=== PATIENT | male | born 1955 | race Caucasian/White ===

== ENCOUNTER 2022-11-12 11:12 | Outpatient (OUT) | payer MEDICARE, OTHER, SELFPAY ==
--- NOTE | 2022-11-12 11:15 | US_ITS ---
The [address] [address] Patient Name: RAMA CHIN MRN: [id number] date: 1955 Sex: M Assigned Patient Location: US Current Patient Location: US Accession/Order Number: [id number] Exam Date: 11/12/2022 11:15 Report Date: 11/12/2022 12:48 At the request of: ANU CADET Procedure: US renal bladder EXAM: US renal bladder HISTORY: Right flank discomfort R10.9 COMPARISON: None. TECHNIQUE: Real-time ultrasound imaging of the kidneys and bladder. Findings: The right and left kidneys measure 10.8 and 13.1 cm. There is good corticomedullary differentiation bilaterally. There is a right renal cortical calcification measuring 0.5 cm. No renal stones or collecting system dilatation. Left renal cyst measuring 2.3 x 2.2 x 1.9 cm. No perinephric fluid collection. The bladder is fluid-filled and unremarkable. The bilateral ureteral jets are identified. The right ureteral jet is duplicated. The prostate measures 4.0 x 4.0 x 4.1 cm. IMPRESSION: 1. Left renal cyst. Electronically authenticated by: LALY PALOMO Date: 11/12/2022 12:48
== END 2022-11-12 11:13 | disposition home or self-care (01) ==
LOC: US 11:12
PROVIDERS: PCP Family Medicine; Visit Provider Family Medicine
DX: R10.9 Unspecified abdominal pain (principal); N28.1 Cyst of kidney, acquired
CPT/HCPCS: 76770

== ENCOUNTER 2022-11-19 09:06 | Outpatient (OUT) | payer MEDICARE, OTHER, SELFPAY ==
--- NOTE | 2022-11-19 09:17 | MR_ITS ---
The [address] [address] Patient Name: RAMA CHIN MRN: [id number] date: 1955 Sex: M Assigned Patient Location: LAB Current Patient Location: LAB Accession/Order Number: [id number] Exam Date: 11/19/2022 09:25 Report Date: 11/23/2022 13:50 At the request of: ANU CADET Procedure: MR abdomen wo/w con EXAM: MR abdomen wo/w con - 11/19/2022 HISTORY: Cyst Of Kidney N28.1 COMPARISON: Renal ultrasound 11/12/2022. TECHNIQUE: Coronal, sagittal and axial T2, axial T1-weighted images obtained in and out of phase as well as axial T1 and T2-weighted images were obtained with fat saturation. Axial T1 fat-saturated images were obtained through the level of the kidneys following administration of intravenous contrast only during the portal venous phase. FINDINGS: Prostate is enlarged but partially visualized. Transverse width of the gland is at least 6.3 cm. There is mild elevation of urinary bladder base. Liver, spleen, gallbladder and adrenals appear unremarkable. There is dependent layering sludge within the gallbladder lumen without discrete stone. Severe chronic background global atrophic changes of the pancreas without underlying mass noted. No significant biliary or pancreatic ductal dilatation noted. Aorta demonstrates otherwise normal caliber. Bowel pattern does not appear to be obstructive. No significantly enlarged adenopathy or ascites. Significant retention of stool within the large bowel suggestive of constipation. Small bilateral renal cysts are identified. The largest cyst in the region of the posterior cortex of the midpole level of the left kidney and appears exophytic measuring 2.9 x 3.3 cm. An intracortical cyst at the upper pole of the right kidney within the medial cortex measures 5 mm. A midpole cyst posteriorly measures 6 mm. Just caudal to this a midpole cyst anteriorly measures 3 mm. IMPRESSION: 1. Bilateral benign-appearing renal cysts, largest on the left as described. 2. Chronic severe global atrophic changes of the pancreas. Constipation suggested. 3. No acute intra-abdominal process otherwise noted. 4. Prostatomegaly. Electronically authenticated by: ETTA ERICKSON Date: 11/23/2022 13:50
[2022-11-19 09:24] LABS: Estimated GFR (African America >60 (>=60); Estimated GFR (Non-African Ame >60 (>=60)
== END 2022-11-19 09:07 | disposition home or self-care (01) ==
LOC: LAB 09:06
PROVIDERS: PCP Family Medicine; Visit Provider Family Medicine
DX: N28.1 Cyst of kidney, acquired (principal)
CPT/HCPCS: 36415; 74183; 82565; A9575

== ENCOUNTER 2023-02-26 11:55 | Outpatient (OUT) | payer MEDICARE, OTHER, SELFPAY ==
[2023-02-26 14:09] LABS: Prostate Specific Antigen Dx 1.46 ng/mL (<=4.00)
== END 2023-02-26 11:56 | disposition home or self-care (01) ==
PROVIDERS: PCP Family Medicine; Visit Provider Urology
DX: N40.1 Benign prostatic hyperplasia with lower urinary tract symptoms (principal); R39.15 Urgency of urination
CPT/HCPCS: 36415; 84153

== ENCOUNTER 2023-10-03 11:34 | Outpatient (OUT) | payer MEDICARE, OTHER, SELFPAY ==
[2023-10-03 12:02] LABS: Basophils Absolute Auto 0.1 10^3/uL (0.0-0.1); Basophils Percent Auto 0.9 % (0.2-2.0); Eosinophils Absolute Auto 0.1 10^3/uL (0.0-0.7); Eosinophils Percent Auto 2.3 % (0.9-7.0); Hematocrit 44.1 % (42.0-54.0); Hemoglobin 15.1 g/dL (14.0-18.0); Immature Granulocytes Abs Auto 0.02 10^3/uL (0.00-0.03); Immature Granulocytes Pct Auto 0.4 % (0.0-0.5); Lymphocytes Absolute Auto 1.7 10^3/uL (1.2-3.8); Lymphocytes Percent Auto 31.3 % (20.5-60.0); Mean Corpuscular HGB Conc 34.2 g/dL (29.9-35.2); Mean Corpuscular Hemoglobin 30.1 pg (25.9-34.0); Mean Corpuscular Volume 87.8 fL (80.0-94.0); Mean Platelet Volume 9.9 fL (9.5-13.5); Monocytes Absolute Auto 0.4 10^3/uL (0.3-0.8); Monocytes Percent Auto 6.8 % (1.7-12.0); Neutrophils Absolute Auto 3.1 10^3/uL (1.4-6.5); Neutrophils Percent Auto 58.3 % (43.0-75.0); Platelet Count 191 10^3/uL (150-450); Red Blood Count 5.02 10^6/uL (4.70-6.10); Red Cell Distribution Width 12.2 % (11.0-15.0); White Blood Count 5.3 10^3/uL (4.0-11.0)
[2023-10-03 13:52] LABS: Alanine Aminotransferase 27 U/L (16-63); Albumin Globulin Ratio 1.3; Albumin Level 3.8 g/dL (3.4-5.0); Alkaline Phosphatase 83 U/L (46-116); Anion Gap 12.6; Aspartate Amino Transferase 10 U/L (15-37); BUN Creatinine Ratio 13.9; Bilirubin Total 0.9 mg/dL (0.2-1.0); Calcium 9.3 mg/dL (8.5-10.1); Carbon Dioxide 28.4 mmol/L (21.0-32.0); Chloride 99 mmol/L (98-107); Chol HDL Ratio 3.8; Cholesterol 233 mg/dL (<=200); Estimated GFR (African America >60 (>=60); Estimated GFR (Non-African Ame >60 (>=60); Globulin 2.9 g/dL; Glucose 287 mg/dL (74-106); HDL Cholesterol 62 mg/dL (40-60); Sodium 136 mmol/L (136-145); Thyroid Stimulating Hormone 1.681 uIU/mL (0.358-3.740); Total Protein 6.7 g/dL (6.4-8.2); Triglycerides 139 mg/dL (<=150); VLDL CHOLESTEROL 27.8 mg/dL
[2023-10-03 14:29] LABS: Prostate Specific Antigen Scrn 1.17 ng/mL (<=4.00)
[2023-10-03 15:45] LABS: Estimated Average Glucose 283 mg/dL; Glycohemoglobin A1C 11.5 % (4.5-6.2)
[2023-10-04 10:10] LABS: Insulin 5.4 uIU/mL (2.6-24.9)
== END 2023-10-03 11:35 | disposition home or self-care (01) ==
LOC: LAB 11:37
PROVIDERS: PCP Family Medicine; Visit Provider Family Medicine
DX: E11.40 Type 2 diabetes mellitus with diabetic neuropathy, unspecified (principal); E55.9 Vitamin D deficiency, unspecified; K29.50 Unspecified chronic gastritis without bleeding; E78.5 Hyperlipidemia, unspecified; Z12.5 Encounter for screening for malignant neoplasm of prostate
CPT/HCPCS: 36415; 80053; 80061; 83036; 83525; 84436; 84443; 84481; 84550; 85025; G0103

== ENCOUNTER 2024-06-06 15:48 | Outpatient (OUT) | payer MEDICARE, OTHER, SELFPAY ==
[2024-06-06 17:28] LABS: Prostate Specific Antigen Dx 1.34 ng/mL (<=4.00)
== END 2024-06-06 15:49 | disposition home or self-care (01) ==
LOC: LAB 15:49
PROVIDERS: PCP Family Medicine; Visit Provider Urology
DX: R97.20 Elevated prostate specific antigen [PSA] (principal)
CPT/HCPCS: 36415; 84153

== ENCOUNTER 2024-12-10 16:39 | Outpatient (OUT) | payer MEDICARE, OTHER, SELFPAY ==
[2024-12-10 17:07] LABS: Hematocrit 42.4 % (42.0-54.0); Hemoglobin 14.5 g/dL (14.0-18.0); Immature Granulocytes Abs Auto 0.03 10^3/uL (0.00-0.03); Immature Granulocytes Pct Auto 0.4 % (0.0-0.5); Lymphocytes Absolute Auto 2.3 10^3/uL (1.2-3.8); Mean Corpuscular HGB Conc 34.2 g/dL (29.9-35.2); Mean Corpuscular Hemoglobin 29.8 pg (25.9-34.0); Mean Corpuscular Volume 87.2 fL (80.0-94.0); Platelet Count 207 10^3/uL (150-450); Red Blood Count 4.86 10^6/uL (4.70-6.10); White Blood Count 7.3 10^3/uL (4.0-11.0)
[2024-12-10 17:33] LABS: Alanine Aminotransferase 35 U/L (16-63); Albumin Globulin Ratio 1.2; Albumin Level 3.9 g/dL (3.4-5.0); Alkaline Phosphatase 88 U/L (46-116); Anion Gap 11.3; Aspartate Amino Transferase 18 U/L (15-37); Blood Urea Nitrogen 18.0 mg/dL (7.0-18.0); Calcium 8.4 mg/dL (8.5-10.1); Carbon Dioxide 32.3 mmol/L (21.0-32.0); Chloride 102 mmol/L (98-107); Cholesterol 174 mg/dL (<=200); Estimated GFR (African America >60 (>=60 mL/min/1.73m^2); Estimated GFR (Non-African Ame >60 (>=60 mL/min/1.73m^2); Free T3 2.11 pg/mL (2.18-3.98); Globulin 3.2 g/dL; Glucose 96 mg/dL (74-106); HDL Cholesterol 59 mg/dL (40-60); Potassium 3.6 mmol/L (3.5-5.1); Sodium 142 mmol/L (136-145); Thyroid Stimulating Hormone 1.676 uIU/mL (0.358-3.740); Total Protein 7.1 g/dL (6.4-8.2); Triglycerides 147 mg/dL (<=150); VLDL CHOLESTEROL 29.4 mg/dL
== END 2024-12-10 16:40 | disposition home or self-care (01) ==
LOC: LAB 16:41
PROVIDERS: PCP Family Medicine; Visit Provider Family Medicine
DX: E78.5 Hyperlipidemia, unspecified (principal); R73.09 Other abnormal glucose; R53.83 Other fatigue; Z12.5 Encounter for screening for malignant neoplasm of prostate; Z12.12 Encounter for screening for malignant neoplasm of rectum; I10 Essential (primary) hypertension
CPT/HCPCS: 36415; 80053; 80061; 83036; 84436; 84443; 84481; 85025; G0103

== ENCOUNTER 2024-12-14 13:36 | Outpatient (REF) | payer MEDICARE, OTHER, SELFPAY ==
--- OUTSIDE RECORDS SUMMARY | 2024-12-14 13:47 | XMS_ITS | CCD ---
Author Organization [facility] Care Team Providers Care Spanish Speaking Babysitter Name Role Phone DR CHRIST OSULLIVAN Attending Unavailable CHICHI, DR BRENNAN Primary Care Unavailable DR CHRIST OSULLIVAN Admitting Unavailable AVERY, DR BARTON Consulting Unavailable CHICHI, DR BRENNAN Admitting Unavailable CHICHI, DR BRENNAN Primary Care Unavailable CHICHI, DR BRENNAN Consulting Unavailable CHICHI, DR BRENNAN Attending Unavailable Anu Che Primary Care Physician [phone] Julienne Lott Attending Unavailable ANU CHE Primary Care Unavailable Christ OSULLIVAN Attending Unavailable Christ OSULLIVAN Attending Unavailable Christ OSULLIVAN Attending Unavailable MIMI NGUYEN Attending Unavailable Allergies Allergy Classification Reported Allergen(s) Allergy Type Date of Onset Reaction(s) Facility (2 sources) Magnesium; Translations: [Hismanal] Drug Allergy 6 [facility] Repository (3 sources) Astemizole; Translations: [astemizole] Drug Allergy Tachycardia (finding) [facility] Medications Current Medications Medication Drug Class(es) Dates Sig (Normalized) Sig (Original) aspirin 81 mg oral tablet (3 sources) Platelet Aggregation Inhibitor, Nonsteroidal Anti-inflammatory Drug Start: 08-29-2019 take 1 mg by mouth once daily aspirin 81 mg oral tablet mg tab(s), Oral, Daily, Refills(s) 0 Start Date: 08/29/19 Status: Ordered Calcium, Magnesium and Zinc oral tablet (3 sources) Start: 06-08-2024 take 1 tablet by mouth once daily Calcium, Magnesium and Zinc oral tablet 1 tab(s), Oral, Daily Start Date: 06/08/24 Status: Ordered Repeat number: 1 Start: 06-08-2024 take 1 tablet by mary anne th once daily Calcium, Magnesium and Zinc oral tablet 1 tab(s), Oral, Daily Start Date: 06/08/24 Status: Ordered cetirizine hydrochloride 10 mg disintegrating oral tablet (4 sources) Histamine-1 Receptor Antagonist Start: 06-08-2024 take 1 tablet by mouth once daily as needed Zyrtec Dissolve 10 mg oral tablet, dispersible 10 mg = 1 tab(s), Oral, Daily, PRN for allergy symptoms Start Date: 06/08/24 Status: Ordered Repeat number: 1 Start: 08-29-2019 Zyrtec Daily, Refills(s) 0 Start Date: 08/29/19 Status: Ordered esomeprazole 20 mg delayed release oral capsule (4 sources) Proton Pump Inhibitor Start: 06-08-2024 take 1 capsule by mouth once daily Nexium 20 mg Cap-DR 20 mg = 1 cap(s), Oral, Daily Start Date: 06/08/24 Status: Ordered Repeat number: 1 Start: 08-29-2019 Nexium Oral, D aily, Refills(s) 0 Start Date: 08/29/19 Status: Ordered finasteride 5 mg oral tablet (6 sources) 5-alpha Reductase Inhibitor Start: 12-10-2024 End: 12-05-2025 take 1 tablet by mouth once daily finasteride 5 mg Tab 5 mg = 1 tab(s), Oral, Daily, X 90 day(s), # 90 tab(s), Refills(s) 3, Pharmacy: [facility]/pharmacy #[id number], 180, cm, 12/10/24 14:50:00 EDT, Height/Length Dosing, 89.4, kg, 12/10/24 14:50:00 EDT, Weight Dosing Start Date: 12/10/24 Stop Date: 12/05/25 Status: Ordered Quantity: 90.0 Unit: tab(s) Repeat number: 4 Start: 02-28-2024 take 1 tablet by mary anne th once daily finasteride 5 mg Tab 5 mg = 1 tab(s), Oral, Daily, # 90 tab(s), Refills(s) 3, Pharmacy: [facility]/pharmacy #[id number], 180, cm, 12/06/23 12:36:00 EDT, Height/Length Dosing, 82, kg, 12/06/23 12:36:00 EDT, Weight Dosing Start Date: 02/28/24 Status: Ordered Quantity: 90.0 Unit: tab(s) Repeat number: 4 Start: 02-16-2023 take 1 tablet by mary anne once daily finasteride 5 mg Tab 5 mg = 1 tab(s), Oral, Daily, # 90 tab(s), Refills(s) 3, [id number], cm, 03/01/22 11:27:00 EDT, Height/Length Dosing, 99, kg, 03/01/22 11:27:00 EDT, Weight Dosing Start Date: 02/16/23 Status: Ordered Start: 01-28-2022 take 1 tablet by mary anne once daily finasteride 5 mg Tab 5 mg = 1 tab(s), Oral, Daily, # 90 tab(s), Refills(s) 3, [id number], cm, 12/22/20 11:38:00 EDT, Height/Length Dosing, 99, kg, 12/22/20 11:38:00 EDT, Weight Dosing Start Date: 01/28/22 Status: Ordered glimepiride 2 mg oral tablet (4 sources) Sulfonylurea Start: 12-06-2023 glimepiride 2 mg Tab Refills(s) 0 Start Date: 12/06/23 Status: Ordered Repeat number: 1 lovastatin 20 mg oral tablet (6 sources) HMG-CoA Reductase Inhibitor Start: 08-29-2019 take 20 mg by mouth once daily lovastatin 20 mg, Oral, Daily, Refills(s) 0 Start Date: 08/29/19 Status: Ordered Repeat number: 1 Start: 08-29-2019 lovastatin Ora l, Refills(s) 0 Start Date: 08/29/19 Status: Ordered metFORMIN hydrochloride 500 mg oral tablet (4 sources) Biguanide Start: 12-06-2023 take 1 tablet by mouth twice daily metformin 500 mg Tab 500 mg = 1 tab(s), Oral, BID, Refills(s) 0 Start Date: 12/06/23 Status: Ordered Repeat number: 1 24 hr mirabegron 50 mg extended release oral tablet (2 sources) beta3-Adrenergic Agonist Start: 06-08-2024 take 1 tablet by mouth once daily mirabegron 50 mg oral tablet, extended release 50 mg = 1 tab(s), Oral, Daily, LYNSEY, # 30 tab(s), Refills(s) 11, LYNSEY, Pharmacy: [facility]/pharmacy #[id number], 180, cm, 06/08/24 11:16:00 EST, Height/Length Dosing, 82, kg, 06/08/24 11:16:00 EST, Weight Dosing Start Date: 06/08/24 Status: Ordered Start: 10-23-2023 take 1 tablet by mary anne th once daily Myrbetriq 50 mg oral tablet, extended release 50 mg = 1 tab(s), Oral, Daily, # 30 tab(s), Refills(s) 11, Pharmacy: [id number], 180, cm, 07/01/23 11:36:00 EST, Height/Length Dosing, 82, kg, 07/01/23 11:36:00 EST, Weight Dosing Start Date: 10/23/23 Status: Ordered 24 hr oxybutynin chloride 10 mg extended release oral tablet (1 source) Cholinergic Muscarinic Antagonist Start: 01-28-2022 take 1 tablet by mouth once daily oxybutynin 10 mg ER Tab 10 mg = 1 tab(s), Oral, Daily, # 90 tab(s), Refills(s) 3, Pharmacy: [facility]/pharmacy #[id number], 180, cm, 12/22/20 11:38:00 EDT, Height/Length Dosing, 99, kg, 12/22/20 11:38:00 EDT, Weight Dosing Start Date: 01/28/22 Status: Ordered Vitamin D (3 sources) Start: 08-29-2019 Vitamin D Oral , Refills(s) 0 Start Date: 08/29/19 Status: Ordered Vitamin E (3 sources) Start: 08-29-2019 vitamin E Oral , Daily, Refills(s) 0 Start Date: 08/29/19 Status: Ordered Problems Problem Classification Problem Date Documented Date Episodic/Chronic Anxiety disorders (6 sources) Anxiety disorder 08-29-2019 Chronic Calculus of urinary tract (8 sources) Kidney stone; Translations: [Calculus of kidney] Onset: 07-01-2023 Episodic Diabetes mellitus with complications (1 source) Type 2 diabetes mellitus with diabetic neuropathy, unspecified; Translations: [TYPE 2 DM W/DIABETIC NEUROPATHY UNS] Onset: 12-24-2021 Chronic Diabetes mellitus without complication (6 sources) Other abnormal glucose; Translations: [Glycosuria] Onset: 12-24-2021 02-28-2023 Episodic Disorders of lipid metabolism (1 source) Hyperlipidemia, unspecified; Translations: [HYPERLIPIDEMIA UNSPECIFIED] Onset: 12-24-2021 Chronic Genitourinary symptoms and ill-defined conditions (14 sources) Urgency of urination; Translations: [Urgent desire to urinate] Onset: 12-24-2021 Episodic Heart valve disorders (6 sources) Heart murmur 08-29-2019 Episodic Hyperplasia of prostate (20 sources) Benign prostatic hyperplasia with lower urinary tract symptoms; Translations: [Benign prostatic hypertrophy with outflow obstruction] Onset: 12-23-2021 Chronic Inflammatory conditions of male genital organs (12 sources) Epididymitis; Translations: [Prostatitis] 08-29-2019 Episodic Mood disorders (6 sources) Depressive disorder 08-29-2019 Chronic Nutritional deficiencies (1 source) Vitamin D deficiency, unspecified; Translations: [VITAMIN D DEFICIENCY UNSPECIFIED] Onset: 12-24-2021 Chronic Open wounds of extremities (1 source) Laceration without foreign body of left thumb without damage to nail, initial encounter; Translations: [Laceration without foreign body of left thumb without damage to nail, initial encounter] Onset: 11-08-2023 Episodic Other diseases of kidney and ureters (3 sources) Acquired renal cyst without neoplastic change; Translations: [Cyst of kidney, acquired] Onset: 07-01-2023 Episodic Other diseases of kidney and ureters (5 sources) Cyst of kidney 02-28-2023 Episodic Other screening for suspected conditions (not mental disorders or infectious disease) (11 sources) Encounter for screening for malignant neoplasm of prostate; Translations: [Raised prostate specific antigen] Onset: 12-24-2021 08-29-2019 Episodic Residual codes; unclassified (6 sources) H/O: anticoagulant therapy 12-21-2019 Episodic Urinary tract infections (6 sources) Chronic cystitis 08-29-2019 Chronic Results Test Name Value Interpretation Reference Range Facility Ambulatory Visit Summaryon 0 12-10-2024 Ambulatory Visit Summary Ambulatory Visit Summary RAMA CHIN :1955 Visit Date:12/10/2024 Ambulatory Visit Instructions Your Diagnosis Urgency of urination Incomplete bladder emptying BPH (benign prostatic hyperplasia) Elevated PSA Your Care Team Attending Physician - OSULLIVAN Christ SORTO Primary Care Physician - Anu Che MD This Is Your Medications List finasteride (finasteride 5 mg Tab) Contact prescribing physician if questions or concerns cetirizine (Zyrtec Dissolve 10 mg oral tablet, dispersible) esomeprazole (Nexium 20 mg William-) glimepiride (glimepiride 2 mg Tab) lovastatin metformin (metformin 500 mg Tab) multivitamin with minerals (Calcium, Magnesium and Zinc oral tablet) Procedures Performed Transrectal biopsy of prostate using ultrasound guidance (07/06/2016), Cystoscopy (07/31/2015), TURP - Transurethral resection of prostate (07/31/2015), Urodynamics (06/13/2015), Transrectal biopsy of prostate using ultrasound guidance (03/05/2014), Transrectal biopsy of prostate using ultrasound guidance (08/28/2013), Cystoscopy (04/24/2013), Urodynamics (03/28/2013), Tonsillectomy. Discharge Vitals Temperature (Temporal Artery) 37 ???C Heart Rate (Peripheral) 68 Respiratory Rate 16 Blood Pressure 130/73 Height 180 cm Height 71 in Weight 89.4 kg Weight 197.093 lb BMI 27.59 What to do next Scheduled Follow-Up Appointments Tuesday2025 10:45 AM EST With: Christ OSULLIVAN MD Where: [facility] [place] [place] [address]- You Need to Schedule the Following Appointments Follow Up with Christ OSULLIVAN MD, URL When: Where: [facility] [address] , [place] [address]- You Need to Complete the Following PSA Free & Total, Blood, Routine collect, 05/23/25, Order for future visit, Lab Collect, Elevated PSA BPH (benign prostatic hyperplasia), Required & Missing, Print Label By Order Location Medications What How Much When Instructions Changed finasteride (finasteride 5 mg Tab) 1 Tablets By Mouth Every day Duration: 90 Days Pickup at [facility]/pharmacy #[id number] Unchanged cetirizine (Zyrtec Dissolve 10 mg oral tablet, dispersible) 1 Tablets By Mouth Every day as needed for for allergy symptoms Contact prescribing physician if questions or concerns Unchanged esomeprazole (Nexium 20 mg Cap-DR) 1 Capsules By Mouth Every day Contact prescribing physician if questions or concerns Unchanged glimepiride (glimepiride 2 mg Tab) Contact prescribing physician if questions or concerns Unchanged lovastatin 20 Milligram By Mouth Every day Contact prescribing physician if questions or concerns Unchanged metformin (metformin 500 mg Tab) 1 Tablets By Mouth 2 times a day Contact prescribing physician if questions or concerns Unchanged multivitamin with minerals (Calcium, Magnesium and Zinc oral tablet) 1 Tablets By Mouth Every day Contact prescribing physician if questions or concerns Pharmacy Information [facility]/pharmacy #[id number]: [address], [place] [id number] [phone] Allergies Hismanal (Heart rate fast) Problems Ongoing - Any problem that you are currently receiving treatment for. Anxiety disorder BPH (benign prostatic hyperplasia) BPH with urinary obstruction Chronic cystitis Depression Elevated PSA Epididymitis Glucosuria Heart murmur Hx of mcfp use of blood thinners Incomplete bladder emptying Kidney stone Prostatitis Renal cyst Patient Survey You may receive a survey via text or e-mail asking about your office visit. Please share your experience with us by completing your survey. We appreciate your feedback and thank you for choosing us for your care. Education Materials Benign Prostatic Hyperplasia Benign prostatic hyperplasia (BPH) is an enlarged prostate gland that is caused by the normal aging process. The prostate may get bigger as a man gets older. The condition is not caused by cancer. The prostate is a walnut-sized gland that is involved in the production of semen. It is located in front of the rectum and below the bladder. The bladder stores urine. The urethra carries stored urine out of the body. An enlarged prostate can press on the urethra. This can make it harder to pass urine. The buildup of urine in the bladder can cause infection. Back pressure and infection may progress to bladder damage and kidney (renal) failure. What are the causes? This condition is part of the normal aging process. However, not all men develop problems from this condition. If the prostate enlarges away from the urethra, urine flow will not be blocked. If it enlarges toward the urethra and compresses it, there will be problems passing urine. What increases the risk? This condition is more likely to develop in men older than 50 years. What are the signs or symptoms? Symptoms of this condition include: ??? (more content not included)... [facility] Urology Office/Clinic Noteon 12-10-2024 Urology Office/Clinic Note Urology Office/Clinic Note Chief Complaint f/u to d/c trospium HPI Staff 1 month f/u with PVR. Trospium d/c at last OV. Dx: urgency of urination, incomplete bladder emptying, BPH, family hx of prostate cancer and elevated PSA Finasteride 5mg qd IPSS score of 8 today. Urgency about half the time. Frequency and weak stream less than half the time. PVR today is 175ml. Pt states that he does have some leakage if he tries to hold it too long. History of Present Illness Tests reviewed: UA I have reviewed the previous health record information and history for this patient from Isabell Nguyen PA-C. I have reviewed and verified the staff HPI to be accurate for this encounter. Review of Systems PHQ Score Initial Depression Screen Score: 0 SCORE ROS - Provider Constitutional: denies weight loss, denies hot flashes. Eyes: denies eye problems. Gastrointestinal: denies nausea, denies vomiting. Cardiovascular: denies chest pain or angina. Integumentary: no dryness Musculoskeletal: denies musculoskeletal symptoms. ENMT: denies otolaryngeal symptoms. Respiratory: no shortness of breath. Heme/Lymph: denies easy bleeding tendency, denies easy bruising tendency. Psychiatric: no confusion, no anxiety. Genitourinary: See HPI. Physical Exam Vitals & Measurements T: 37 ???C(Temporal Artery) HR: 68(Peripheral) RR: 16 BP: 130/73 HT: 180 cm HT: 71 in WT: 89.4 kg WT: 197.093 lb BMI: 27.59 General Appearance: alert, no distress, well nourished, well developed adult. Assessment/Plan 1. Urgency of urination (R39.15: Urgency of urination) Intolerable dry mouth with Oxybutynin and Vesicare. Possible cognitive effects/memory loss reported on Oxybutynin. Myrbetriq resumed by PRW 06/08/24. Not covered by insurance. Gemtesa also not covered. [1] Stopped Trospium at prior OV d/t no significant improvement and expensive med.No taking any bladder meds currently. Feels his frequency and urgency was d/t increased sugar. He has noticed less urinary sx since starting metformin. Checks sugar qmorning, typically around 100. Do not want pt to start/restart bladder med since his sx has improved with sugar control and d/t #2. Pt agreeable and overall feels mostly satisfied per urination per IPSS. Follow up 6 mos or sooner if needed. Pt understands and agrees with plan. 2. Incomplete bladder emptying (R33.9: Retention of urine, unspecified) PVR (cc): 10/29/24 - 243 stopped Trospium 12/10/24 - 175 3. BPH (benign prostatic hyperplasia) (N40.0: Benign prostatic hyperplasia without lower urinary tract symptoms) S/p TURP 2015. IPSS 8. Taking Finasteride 5 mg qd. Cont wo changes. Refill sent to [facility]. 4. Elevated PSA (R97.20: Elevated prostate specific antigen [PSA]) PSA 12/19/20 - 1.36 (2.72) 12/23/21 - 1.87 (3.74) 02/26/23 - 1.46 (2.92) 06/06/24 - 1.34 (2.68) Reports he has a strong family history of prostate cancer. S/p TRUS/bx 07/06/16, 03/05/14, and 08/28/13. -PSA due May 2025 Follow-up With When Contact Information AVERY SORTO, Christ Ontiveros, URL [facility] [address], [place] [address]- Additional Instructions: 6 mos with PSA F&T Patient Education Benign Prostatic Hyperplasia I, Suni Dias, personally scribed for Dr. Osullivan on 12/10/2024 15:50:04. . Problem List/Past Medical History Ongoing Anxiety disorder BPH (benign prostatic hyperplasia) BPH with urinary obstruction Chronic cystitis Depression Elevated PSA Epididymitis Glucosuria Heart murmur Hx of mcfp use of blood thinners Incomplete bladder emptying Kidney stone Prostatitis Renal cyst Urgency of urination Historical No qualifying data Procedure/Surgical History Transrectal biopsy of prostate using ultrasound guidance (07/06/2016), Cystoscopy (07/31/2015), TURP - Transurethral resection of prostate (07/31/2015), Urodynamics (06/13/2015), Transrectal biopsy of prostate using ultrasound guidance (03/05/2014), Transrectal biopsy of prostate using ultrasound guidance (08/28/2013), Cystoscopy (04/24/2013), Urodynamics (03/28/2013), Tonsillectomy. Medications Calcium, Magnesium and Zinc oral tablet, 1 tab(s), Oral, Daily finasteride 5 mg Tab, 5 mg= 1 tab(s), Oral, Daily, 3 refills glimepiride 2 mg Tab lovastatin, 20 mg, Oral, Daily metformin 500 mg Tab, 500 mg= 1 tab(s), Oral, BID Nexium 20 mg Cap-DR, 20 mg= 1 cap(s), Oral, Daily Zyrtec Dissolve 10 mg oral tablet, dispersible, 10 mg= 1 tab(s), Oral, Daily, PRN Allergies Hismanal (Heart rate fast) Social History Alcohol Current. Beer. 3-5 times per week., 06/08/2024 Substance Abuse Never., 06/08/2024 Tobacco Never (less than 100 in lifetime) Tobacco Use:. Never Smokeless Tobacco Use:., 06/08/2024 Family History Cancer: Father. Cancer of prostate: Father and Brother. Immunizations Vaccine Date Status influenza virus vaccine, inactivated 06/04/2020 Recorded influe (more content not included)... [facility] Comment on above: Result Comment: Elec tronically Signed By: Christ OSULLIVAN MD\.br\Date and Time Signed: 12/10/24 17:23 EDT\.br\Electronically Co-Signed By: Suni Dias\.br\Date and Time Co-Signed: 12/10/24 15:50 EDT Ambulatory Visit Summaryon 0 10-29-2024 Ambulatory Visit Summary Ambulatory Visit Summary MARKUS CHINAGAPITO Ryan :1955 Visit Date:10/29/2024 Ambulatory Visit Instructions Your Diagnosis Incomplete emptying of bladder Your Care Team Attending Physician - MIMI NGUYEN PA-C Primary Care Physician - Anu Che MD This Is Your Medications List cetirizine (Zyrtec Dissolve 10 mg oral tablet, dispersible) esomeprazole (Nexium 20 mg Cap-DR) finasteride (finasteride 5 mg Tab) glimepiride (glimepiride 2 mg Tab) lovastatin metformin (metformin 500 mg Tab) multivitamin with minerals (Calcium, Magnesium and Zinc oral tablet) trospium (trospium 60 mg oral capsule, extended release) Procedures Performed Transrectal biopsy of prostate using ultrasound guidance (07/06/2016), Cystoscopy (07/31/2015), TURP - Transurethral resection of prostate (07/31/2015), Urodynamics (06/13/2015), Transrectal biopsy of prostate using ultrasound guidance (03/05/2014), Transrectal biopsy of prostate using ultrasound guidance (08/28/2013), Cystoscopy (04/24/2013), Urodynamics (03/28/2013), Tonsillectomy. Discharge Vitals Temperature (Temporal Artery) 37 ???C Heart Rate (Peripheral) 68 Respiratory Rate 16 Blood Pressure 138/81 Height 180 cm Height 71 in Weight 82 kg Weight 180.779 lb BMI 25.31 What to do next Scheduled Follow-Up Appointments Tuesday 1:15 PM EDT With: AVERY SORTO, Christ Ontiveros Where: [facility] [id number] Medications What How Much When Instructions Unchanged cetirizine (Zyrtec Dissolve 10 mg oral tablet, dispersible) 1 Tablets By Mouth Every day as needed for for allergy symptoms Unchanged esomeprazole (Nexium 20 mg Cap-DR) 1 Capsules By Mouth Every day Unchanged finasteride (finasteride 5 mg Tab) 1 Tablets By Mouth Every day Unchanged glimepiride (glimepiride 2 mg Tab) Unchanged lovastatin 20 Milligram By Mouth Every day Unchanged metformin (metformin 500 mg Tab) 1 Tablets By Mouth 2 times a day Unchanged multivitamin with minerals (Calcium, Magnesium and Zinc oral tablet) 1 Tablets By Mouth Every day Unchanged trospium (trospium 60 mg oral capsule, extended release) 1 Capsules By Mouth Once a day (in the morning) Duration: 30 Days Allergies Hismanal (Heart rate fast) Problems Ongoing - Any problem that you are currently receiving treatment for. Anxiety disorder BPH (benign prostatic hyperplasia) BPH with urinary obstruction Chronic cystitis Depression Elevated PSA Epididymitis Glucosuria Heart murmur Hx of mcfp use of blood thinners Kidney stone Prostatitis Renal cyst Urgency of urination Patient Survey You may receive a survey via text or e-mail asking about your office visit. Please share your experience with us by completing your survey. We appreciate your feedback and thank you for choosing us for your care. [facility] Urology Office/Clinic Noteon 10-29-2024 Urology Office/Clinic Note Urology Office/Clinic Note Chief Complaint incomplete bladder emptying HPI Staff Pt was in today for PVR after starting Trospium. Finasteride 5mg qd and Trospium 60mg qd. Denies any visible blood at any time. Denies any pain of any kind. Complaints of frequency throughout the day and Nocturia x2. Does experience urgency at times. States that he will leak if he has to hold his urine too long. Review of Systems PHQ Score Initial Depression Screen Score: 0 SCORE No fever, chills, malaise, myalgia. No abdominal pain, flank pain, gross hematuria. Physical Exam Vitals & Measurements T: 37 ???C(Temporal Artery) HR: 68(Peripheral) RR: 16 BP: 138/81 HT: 71 in HT: 180 cm WT: 82 kg WT: 180.779 lb BMI: 25.31 General: nontoxic, NAD Assessment/Plan [facility] 11/12/22 [facility] - 0.5 cm R renal stone. [2] Declined updated imaging at last visit. [1] [facility] 11/12/22 [facility] - left renal cyst 2.3 x 2.2 x 1.9 cm. MRI [facility] 11/19/22 [facility] - small bilateral, benign-appearing renal cysts. Simple cysts do not require surveillance [3] 1. Urgency of urination (R39.15: Urgency of urination) Intolerable dry mouth with Oxybutynin and Vesicare. Possible cognitive effects/memory loss reported on Oxybutynin. Myrbetriq resumed by PRW 06/08/24. Not covered by insurance. Gemtesa also not covered. Switched to Trospium 60mg ER daily. Pt has been taking this for a few mos. Hasn't noticed significant urinary improvement. Med costs >$100/mo. Also, PVR is quite high today - 243ml, with no recent PVRs for comparison. -Dc Trospium. Keep f/u in 1 mo w PRW to discuss other tx options. Ordered: E&M of Est. Patient Moderate 30-39 Min 27136 2. Incomplete emptying of bladder (R33.9: Retention of urine, unspecified) Unclear if this is chronic or recent d/t the Trospium. Repeat PVR next ov off anticholinergic. See #1. Ordered: [id number] Measure Post Void residual urine and/or bladder capacity by US- non-imaging E&M of Est. Patient Moderate 30-39 Min 27516 3. BPH (benign prostatic hyperplasia) (N40.0: Benign prostatic hyperplasia without lower urinary tract symptoms) S/p TURP 2015 Taking Finasteride 5mg qd. Split stream at the end. Has made some dietary modifications to avoid nocturia. -Cont Finasteride 5mg qd Ordered: E&M of Est. Patient Moderate 30-39 Min 20436 4. Elevated PSA (R97.20: Elevated prostate specific antigen [PSA]) PSA 12/19/20 - 1.36 (2.72) 12/23/21 - 1.87 (3.74) 02/26/23 - 1.46 (2.92) 06/06/24 - 1.34 (2.68) Reports he has a strong family history of prostate cancer. S/p TRUS/bx 07/06/16, 03/05/14, and 08/28/13. [1] -PSA due May 2025 Ordered: E&M of Est. Patient Moderate 30-39 Min [id number] Orders: mirabegron, 50 mg = 1 tab(s), Oral, Daily, # 30 tab(s), Refills(s) , , Pharmacy: [facility]/pharmacy #[id number], 180, cm, 06/08/24 11:16:00 EST, Height/Length Dosing, 82, kg, 06/08/24 11:16:00 EST, Weight Dosing Follow-up With When Contact Information Keep previously scheduled follow-up appointment. Additional Instructions: Patient Education Benign Prostatic Hyperplasia Problem List/Past Medical History Ongoing Anxiety disorder BPH (benign prostatic hyperplasia) BPH with urinary obstruction Chronic cystitis Depression Elevated PSA Epididymitis Glucosuria Heart murmur Hx of mcfp use of blood thinners Kidney stone Prostatitis Renal cyst Urgency of urination Historical No qualifying data Procedure/Surgical History Transrectal biopsy of prostate using ultrasound guidance (07/06/2016), Cystoscopy (07/31/2015), TURP - Transurethral resection of prostate (07/31/2015), Urodynamics (06/13/2015), Transrectal biopsy of prostate using ultrasound guidance (03/05/2014), Transrectal biopsy of prostate using ultrasound guidance (08/28/2013), Cystoscopy (04/24/2013), Urodynamics (03/28/2013), Tonsillectomy. Medications Calcium, Magnesium and Zinc oral tablet, 1 tab(s), Oral, Daily finasteride 5 mg Tab, 5 mg= 1 tab(s), Oral, Daily, 3 refills glimepiride 2 mg Tab lovastatin, 20 mg, Oral, Daily metformin 500 mg Tab, 500 mg= 1 tab(s), Oral, BID Nexium 20 mg Cap-DR, 20 mg= 1 cap(s), Oral, Daily Zyrtec Dissolve 10 mg oral tablet, dispersible, 10 mg= 1 tab(s), Oral, Daily, PRN Allergies Hismanal (Heart rate fast) Social History Alcohol Current. Beer. 3-5 times per week., 06/08/2024 Substance Abuse Never., 06/08/2024 Tobacco Never (less than 100 in lifetime) Tobacco Use:. Never Smokeless Tobacco Use:., 06/08/2024 Family History Cancer: Father. Cancer of prostate: Father and Brother. Immunizations Vaccine Date Status influenza virus vaccine, inactivated 06/04/2020 Recorded influenza, unspecified formulation 03/17/2017 Recorded influenza, unspecified formulation 03/25/2016 Recorded zoster vaccine live 04/30/2014 Recorded influenza virus vaccine, inactivated 04/30/2014 Recorded [1] URO- 6 mos; AVERY SORTO, Christ Ontiveros 06/08/2024 12:22 EST [facility] Comment on above: Result Comment: Elec tronically Signed By: WENDY OLMOS, MIMI Merritt.marysol\Date and Time Signed: 10/29/24 14:16 EDT Urology Office/Clinic Noteon 06-08-2024 Urology Office/Clinic Note Urology Office/Clinic Note Chief Complaint 6 month follow up with PSA HPI Staff 69yr old male pt here for 6mo f/u with PSA. S/p TRUS/bx 07/06/16, 03/05/14, and 08/28/13 Previous Dx: urgency of urination, BPH with urinary obstruction, elevated PSA, kidney stones, renal cyst *Finasteride 5mg qd, D/c'd Myrbetriq ER at last OV due to side effects PSA 12/19/20 - 1.36 (2.72) 12/23/21 - 1.87 (3.74) 02/26/23 - 1.46 (2.92) 06/06/2024- 1.34 Dysuria: denies Incomplete bladder emptying: denies Hematuria: denies Frequency: denies Urgency: denies Nocturia: once a night, without beers or a couple times if he has a couple beers Stream: denies hesitancy, has steady stream, could have a spilt stream sometimes Leaking: sometimes if he holds it too long Post void dripping: denies Wearing pads/ Depends: denies Urge incontinence: rarely Stress incontinence: denies Incontinence without Sensory Awareness: denies Abdominal pain: denies Flank pain: denies Sexual complaints: _ History of Present Illness Tests reviewed: reviewed UA and PSA. I have reviewed the previous health record information and history for this patient from Mimi Nguyen PA-C I have reviewed and verified the staff HPI to be accurate for this encounter. There have been no associated fever, chills, flank pain, or blood in the urine. Denies any urinary infections since last encounter. Review of Systems PHQ Score Initial Depression Screen Score: 2 SCORE ROS - Provider Constitutional: denies weight loss, denies hot flashes. Eyes: denies eye problems. Gastrointestinal: denies nausea, denies vomiting. Cardiovascular: denies chest pain or angina. Integumentary: no dryness Musculoskeletal: denies musculoskeletal symptoms. ENMT: denies otolaryngeal symptoms. Respiratory: no shortness of breath. Heme/Lymph: denies easy bleeding tendency, denies easy bruising tendency. Psychiatric: no confusion, no anxiety. Genitourinary: See HPI. Physical Exam Vitals & Measurements HR: 72(Peripheral) RR: 16 BP: 109/63 HT: 71 in HT: 180 cm WT: 82 kg WT: 180.779 lb BMI: 25.31 General Appearance: alert, no distress, well nourished, well developed male. Assessment/Plan Last seen by Isabell Nguyen PA-C 12/06/23. 1. Urgency of urination (R39.15: Urgency of urination) Took Oxybutynin ER 15mg qd, had worsened SE of dry mouth. Experienced dry mouth with VESIcare 10mg qd. Myrbetriq was d/c at last visit. Reports he is now taking Oxybutynin again, 10mg ER qd. Drinks coffee and tea mainly. Occasional soda. Admits that he holds his urine for too long, especially when he is mowing the grass. Pt mentions that he has noticed mild memory loss. Discussed possible cognitive effects while taking Oxybutynin. Recommended restarting Mirabegron. Pt states he does not remember taking this. Will have pt d/c Oxybutynin and start Mirabegron 50mg. -Minimize bladder irritants -Timed voids -Complete Oxybutynin script and start Mirabegron 50mg ER qd, pt to call if costly Follow up in 6 mos w/ PVR or sooner if needed. 2. Elevated PSA (R97.20: Elevated prostate specific antigen [PSA]) PSA 12/19/20 - 1.36 (2.72) 12/23/21 - 1.87 (3.74) 02/26/23 - 1.46 (2.92) 06/06/24 - 1.34 (2.68) Reports he has a strong family history of prostate cancer. S/p TRUS/bx 07/06/16, 03/05/14, and 08/28/13. [1] PSA stable. Will cont to monitor. -PSA due in 1 year 3. BPH with urinary obstruction (N40.1: Benign prostatic hyperplasia with lower urinary tract symptoms) Prior IPSS 8. UA today negative for blood or infection. Taking Finasteride 5mg qd. Split stream at the end. Has made some dietary modifications to avoid nocturia. Pt states that he was told by another one of his doctors that taking Finasteride long-term can cause cognitive issues. Pt does report mild memory loss. See above. -Cont Finasteride 5mg qd -Cont symptomatic monitoring 4. Kidney stone (N20.0: Calculus of kidney) TALIB 11/12/22 [facility] - 0.5 cm R renal stone. [2] Declined updated imaging at last visit. 5. Renal cyst (N28.1: Cyst of kidney, acquired) ATLIB 11/12/22 [facility] - left renal cyst 2.3 x 2.2 x 1.9 cm. MRI abd 11/19/22 [facility] - small bilateral, benign-appearing renal cysts. -Simple cysts do not require surveillance [3] Follow-up With When Contact Information Christ OSULLIVAN MD, URL [address] [id number]- Additional Instructions: 6 months w/ PVR (no labs) Patient Education Benign Prostatic Hyperplasia I, Ирина Hines, personally scribed for Dr. Osullivan on 06/08/2024 12:22:54. . Documentation recorded by the scribe, Ирина Hines, accurately reflects the services(s) I performed and decisions made by me. Authenticated by Dr. Osullivan on 06/08/2024 12:26:35. Problem List/Past Medical History Ongoing Anxiety disorder BPH (benign prostatic hyperplasia) BPH with urinary obstruction Chronic cystitis (more content not included)... [facility] Comment on above: Result Comment: Elec tronically Signed By: Christ OSULLIVAN MD\.br\Date and Time Signed: 06/08/24 12:26 EST\.br\Electronically Co-Signed By: Ирина Hines\.br\Date and Time Co-Signed: 06/08/24 12:25 EST INSULINon 12-24-2021 Insulin 7.7 uIU/mL Normal 2.6-24.9 [facility] Comment on above: Performed By: #### I NSULIN #### [facility] [address] [place] [address] Dr. Max Pyle CBC AUTO DIFFon 12-23-2021 BASO # 0.1 103/ul Normal 0.0-0.1 [facility] Comment on above: Performed By: #### C BC #### [facility] [address] [place] [address] Dr. Max Pyle Basophils/100 WBC (Bld) 0.7 % Normal 0.2-2.0 [facility] Comment on above: Performed By: #### C BC #### [facility] [address] [place] [address] Dr. Max Pyle EO # 0.2 103/ul Normal 0.0-0.7 [facility] Comment on above: Performed By: #### C BC #### [facility] [address] [place] [address] Dr. Max Pyle Eosinophils/100 WBC (Bld) 2.5 % Normal 0.9-7.0 [facility] Comment on above: Performed By: #### C BC #### [facility] [address] [place] [address] Dr. Max Pyle Erythrocyte distribution width (RBC) [Ratio] 12.9 % Normal 11.0-15.0 [facility] Comment on above: Performed By: #### C BC #### [facility] [address] [place] [address] Dr. Max Pyle Hematocrit (Bld) [Volume fraction] 42.3 % Normal 42.0-54.0 [facility] Comment on above: Performed By: #### C BC #### [facility] [address] [place] [address] Dr. Max Pyle Hemoglobin (Bld) [Mass/Vol] 14.3 g/dL Normal 14.0-18.0 [facility] Comment on above: Performed By: #### C BC #### [facility] [address] [place] [address] Dr. Max Pyle IG # 0.02 10e3/ul Normal 0.00-0.03 [facility] Comment on above: Performed By: #### C BC #### [facility] [address] [place] [address] Dr. Max Pyle IG % 0.3 % Normal 0.0-0.5 [facility] Comment on above: Performed By: #### C BC #### [facility] [address] [place] [address] Dr. Max Pyle LYMPH # 2.0 103/ul Normal 1.2-3.8 [facility] Comment on above: Performed By: #### C BC #### [facility] [address] [place] [address] Dr. Max Pyle Lymphocytes/100 WBC (Bld) 25.9 % Normal 20.5-60.0 [facility] Comment on above: Performed By: #### C BC #### [facility] [address] [place] [address] Dr. Max Pyle MANUAL DIFF REQ NO Normal [facility] Comment on above: Performed By: #### C BC #### [facility] [address] [place] [address] Dr. Max Pyle MCH (RBC) [Entitic mass] 29.7 pg Normal 25.9-34.0 [facility] Comment on above: Performed By: #### C BC #### [facility] [address] [place] [address] Dr. Max Pyle MCHC (RBC) [Mass/Vol] 33.8 g/dL Normal 29.9-35.2 [facility] Comment on above: Performed By: #### C BC #### [facility] [address] [place] [address] Dr. Max Pyle MCV (RBC) [Entitic vol] 87.9 fL Normal 80.0-94.0 [facility] Comment on above: Performed By: #### C BC #### [facility] [address] [place] [address] Dr. Max Pyle MONO # 0.4 103/ul Normal 0.3-0.8 [facility] Comment on above: Performed By: #### C BC #### [facility] [address] [place] [address] Dr. Max Pyle Monocytes/100 WBC (Bld) 5.3 % Normal 1.7-12.0 [facility] Comment on above: Performed By: #### C BC #### [facility] [address] [place] [address] Dr. Max Pyle NEUT # 5.0 103/ul Normal 1.4-6.5 [facility] Comment on above: Performed By: #### C BC #### [facility] [address] [address] [address] Max Pyle Neutrophils/100 WBC (Bld) 65.3 % Normal 43.0-75.0 [facility] Comment on above: Performed By: #### C BC #### [facility] [address] [place] [address] Dr. Max Pyle Platelet mean volume (Bld) [Entitic vol] 9.9 fL Normal 9.5-13.5 [facility] Comment on above: Performed By: #### C BC #### [facility] [address] [place] [address] Dr. Max Pyle PLT 225 103/ul Normal 150-450 [facility] Comment on above: Performed By: #### C BC #### [facility] [address] [place] [address] Dr. Max Pyle RBC 4.81 106/ul Normal 4.70-6.10 [facility] Comment on above: Performed By: #### C BC #### [facility] [address] [place] [address] Dr. Max Pyle WBC 7.7 103/ul Normal 4.0-11.0 [facility] Comment on above: Performed By: #### C BC #### [facility] [address] [place] [address] Dr. Max Pyle FREE THYROXINE INDEX T7on FTI 2.79 Normal 1.30-4.50 [facility] Comment on above: Performed By: #### C MP, LIPID, T7, TSH, URIC #### [facility] [address] [place] [address] Dr. Max Pyle T3U 34.0 % Normal 33.0-40.0 [facility] Comment on above: Performed By: #### C MP, LIPID, T7, TSH, URIC #### [facility] [address] [place] [address] Dr. Max Pyle T4 [Mass/Vol] 8.20 ug/dL Normal 4.50-12.10 [facility] Comment on above: Performed By: #### C MP, LIPID, T7, TSH, URIC #### [facility] [address] [address] [address] Max Pyle GLYCOHEMOGLOBIN A1Con 2021 ADA RECOMMENDATION SEE BELOW Normal [facility] Comment on above: Result Comment: ADA RECOMMENDED LIMIT 4.0 - 6.0 ADA THERAPEUTIC TARGET < 7.0 ACTION SUGGESTED > 7.0 Performed By: #### A 1C #### [facility] [address] [address] [address] Max Pyle Glucose [Mass/Vol] 134 mg/dL Normal [facility] Comment on above: Performed By: #### A 1C #### [facility] [address] [place] [address] Dr. Max Pyle HbA1c (Bld) [Mass fraction] 6.3 % Critically high 4.5-6.2 [facility] Comment on above: Performed By: #### A 1C #### [facility] [address] [address] [address] Max Pyle LIPID PROFILEon 12-23-2021 CHOL-HDL RATIO NORM SEE BELOW Normal [facility] Comment on above: Result Comment: 3.3 - 4.4 LOW RISK 4.4 - 7.1 AVERAGE RISK 7.1 - 11.0 MODERATE RISK >11.0 HIGH RISK Performed By: #### C MP, LIPID, T7, TSH, URIC #### [facility] [address] [address] [address] Max Pyle Cholesterol [Mass/Vol] 193 mg/dL Normal <=200 [facility] Comment on above: Performed By: #### C MP, LIPID, T7, TSH, URIC #### [facility] [address] [address] [address] Max Pyle Cholesterol in HDL [Mass/Vol] 56 mg/dL Normal 40-60 [facility] Comment on above: Performed By: #### C MP, LIPID, T7, TSH, URIC #### [facility] [address] [address] [address] Max Pyle Cholesterol in LDL [Mass/Vol] 103.6 mg/dL Normal [facility] Comment on above: Performed By: #### C MP, LIPID, T7, TSH, URIC #### [facility] [address] [place] [address] Dr. Max Pyle Cholesterol.total/Cho lesterol in HDL [Mass ratio] 3.4 {ratio} Normal [facility] Comment on above: Performed By: #### C MP, LIPID, T7, TSH, URIC #### [facility] [address] [place] [address] Dr. Max Pyle HDL NORMAL > or = 60 mg/dl - LO W CARDIOVASCULAR RISK <40 mg/dl - HIGH CARDIOVASCULAR RISK Normal [facility] Comment on above: Performed By: #### C MP, LIPID, T7, TSH, URIC #### [facility] [address] [place] [address] Dr. Max Pyle LDL CALC NORMAL SEE BELOW Normal [facility] Comment on above: Result Comment: <100 mg/dl OPTIMAL 100 - 129 mg/dl NEAR OR ABOVE OPTIMAL 130 - 159 mg/dl BORDERLINE HIGH 160 - 189 mg/dl HIGH >190 mg/dl VERY HIGH Performed By: #### C MP, LIPID, T7, TSH, URIC #### [facility] [address] [place] [address] Dr. Max Pyle Triglyceride [Mass/Vol] 167 mg/dL Critically high <=150 [facility] Comment on above: Performed By: #### C MP, LIPID, T7, TSH, URIC #### [facility] [address] [place] [address] Dr. Max Pyle VLDL CALC 33.4 mg/dL Normal [facility] Comment on above: Performed By: #### C MP, LIPID, T7, TSH, URIC #### [facility] [address] [place] [address] Dr. Max Pyle PROF 14(COMP METB)on 022 Albumin [Mass/Vol] 4.2 g/dL Normal 3.4-5.0 [facility] Comment on above: Performed By: #### C MP, LIPID, T7, TSH, URIC #### [facility] [address] [place] [address] Dr. Max Pyle Albumin/Globulin [Mass ratio] 1.4 {ratio} Normal [facility] Comment on above: Performed By: #### C MP, LIPID, T7, TSH, URIC #### [facility] [address] [place] [address] Dr. Max Pyle ALP [Catalytic activity/Vol] 78 U/L Normal 46-116 [facility] Comment on above: Performed By: #### C MP, LIPID, T7, TSH, URIC #### [facility] [address] [place] [address] Dr. Max Pyle ALT [Catalytic activity/Vol] 29 U/L Normal 16-63 [facility] Comment on above: Performed By: #### C MP, LIPID, T7, TSH, URIC #### [facility] [address] [place] [address] Dr. Max Pyle Anion gap [Moles/Vol] 13.8 mmol/L Normal [facility] Comment on above: Performed By: #### C MP, LIPID, T7, TSH, URIC #### [facility] [address] [place] [address] Dr. Max Pyle AST [Catalytic activity/Vol] 15 U/L Normal 15-37 [facility] Comment on above: Performed By: #### C MP, LIPID, T7, TSH, URIC #### [facility] [address] [place] [address] Dr. Max Pyle Bilirubin [Mass/Vol] 0.7 mg/dL Normal 0.2-1.0 [facility] Comment on above: Performed By: #### C MP, LIPID, T7, TSH, URIC #### [facility] [address] [place] [address] Dr. Max Pyle Calcium [Mass/Vol] 9.0 mg/dL Normal 8.5-10.1 [facility] Comment on above: Performed By: #### C MP, LIPID, T7, TSH, URIC #### [facility] [address] [place] [address] Dr. Max Pyle Chloride [Moles/Vol] 106 mmol/L Normal 98-107 [facility] Comment on above: Performed By: #### C MP, LIPID, T7, TSH, URIC #### [facility] [address] [address] [address] Max Pyle CO2 [Moles/Vol] 27.9 mmol/L Normal 21.0-32.0 [facility] Comment on above: Performed By: #### C MP, LIPID, T7, TSH, URIC #### [facility] [address] [place] [address] Dr. Max Pyle Creatinine [Mass/Vol] 1.02 mg/dL Normal 0.70-1.30 [facility] Comment on above: Performed By: #### C MP, LIPID, T7, TSH, URIC #### [facility] [address] [place] [address] Dr. Max Pyle EGFR-AF ITALIAN >60 Normal >=60 [facility] Comment on above: Performed By: #### C MP, LIPID, T7, TSH, URIC #### [facility] [address] [address] [address] Max Pyle EGFR-NON AF ITALIAN >60 Normal >=60 [facility] Comment on above: Performed By: #### C MP, LIPID, T7, TSH, URIC #### [facility] [address] [place] [address] Dr. Max Pyle Globulin (S) [Mass/Vol] 3.1 g/dL Normal [facility] Comment on above: Performed By: #### C MP, LIPID, T7, TSH, URIC #### [facility] [address] [address] [address] Max Pyle Glucose [Mass/Vol] 106 mg/dL Normal 74-106 [facility] Comment on above: Performed By: #### C MP, LIPID, T7, TSH, URIC #### [facility] [address] [address] [address] Max Pyle Potassium [Moles/Vol] 3.7 mmol/L Normal 3.5-5.1 [facility] Comment on above: Performed By: #### C MP, LIPID, T7, TSH, URIC #### [facility] [address] [place] [address] Dr. Max Pyle Protein [Mass/Vol] 7.3 g/dL Normal 6.4-8.2 [facility] Comment on above: Performed By: #### C MP, LIPID, T7, TSH, URIC #### [facility] [address] [place] [address] Dr. Max Pyle Sodium [Moles/Vol] 144 mmol/L Normal 136-145 [facility] Comment on above: Performed By: #### C MP, LIPID, T7, TSH, URIC #### [facility] [address] [place] [address] Dr. Max Pyle Urea nitrogen [Mass/Vol] 13.0 mg/dL Normal 7.0-18.0 [facility] Comment on above: Performed By: #### C MP, LIPID, T7, TSH, URIC #### [facility] [address] [place] [address] Dr. Max Pyle Urea nitrogen/Creatinine [Mass ratio] 12.7 mg/mg Normal [facility] Comment on above: Performed By: #### C MP, LIPID, T7, TSH, URIC #### [facility] [address] [place] [address] Dr. Max Pyle TSHon 12-23-2021 TSH 1.072 uIU/mL Normal 0.358-3.740 [facility] Comment on above: Performed By: #### C MP, LIPID, T7, TSH, URIC #### [facility] [address] [place] [address] Dr. Max Pyle URIC ACID SERUMon 12-23-2021 Urate [Mass/Vol] 6.4 mg/dL Normal 3.5-7.2 [facility] Comment on above: Performed By: #### C MP, LIPID, T7, TSH, URIC #### [facility] [address] [place] [address] Dr. Max Pyle Vital Signs Date Time Vital Sign Value Performing Clinician Tonya hernandez 06-08-2024 11:13-0500 Diastolic blood pressure 63 mm[Hg] Christ OSULLIVAN [facility] 06-08-2024 11:13-0500 Heart rate 72 /min Christ OSULLIVAN [facility] 06-08-2024 11:13-0500 Respiratory rate 16 /min Christ OSULLIVAN [facility] 06-08-2024 11:13-0500 Systolic blood pressure 109 mm[Hg] Christ OSULLIVAN [facility] 12-06-2023 12:32-0400 Blood Pressure Location MIMI WENDY [facility] 12-06-2023 12:32-0400 Diastolic blood pressure 74 mm[Hg] MIMI WENDY [facility] 12-06-2023 12:32-0400 Heart rate 80 /min MIMI WENDY [facility] 12-06-2023 12:32-0400 Respiratory rate 16 /min MIMI WENDY [facility] 12-06-2023 12:32-0400 Systolic blood pressure 132 mm[Hg] MIMI WENDY [facility] 07-01-2023 11:34-0500 Blood Pressure Location Christ OSULLIVAN [facility] 07-01-2023 11:34-0500 Diastolic blood pressure 72 mm[Hg] Christ OSULLIVAN [facility] 07-01-2023 11:34-0500 Heart rate 80 /min Christ OSULLIVAN [facility] 07-01-2023 11:34-0500 Respiratory rate 16 /min Christ OSULLIVAN [facility] 07-01-2023 11:34-0500 Systolic blood pressure 135 mm[Hg] Christ OSULLIVAN [facility] 03-01-2022 11:25-0400 Blood Pressure Location Christerica OSULLIVAN [facility] 03-01-2022 11:25-0400 Diastolic blood pressure 81 mm[Hg] Christ OSULLIVAN [facility] 03-01-2022 11:25-0400 Heart rate 78 /min Christ OSULLIVAN [facility] 03-01-2022 11:25-0400 Respiratory rate 16 /min Christ OSULLIVAN [facility] 03-01-2022 11:25-0400 Systolic blood pressure 138 mm[Hg] Christ OSULLIVAN [facility] Encounters Encounter Date Encounter Type Care Provider Facility Start: 06-14-2025 ambulatory Christ Lii ty:[facility] Start: 12-10-2024 End: 12-10-2024 ambulatory Christ OSULLIVAN Facility:[facility] Start: 12-10-2024 End: 12-10-2024 Patient encounter procedure Christ OSULLIVAN [facility] Start: 10-29-2024 End: 10-29-2024 ambulatory MIMI NGUYEN Facility:[facility] Start: 10-29-2024 End: 10-29-2024 Patient encounter procedure MIMI NGUYEN [facility] Start: 06-08-2024 End: 06-08-2024 ambulatory Christ OSULLIVAN Facility:[facility] Start: 06-08-2024 End: 06-08-2024 Patient encounter procedure Christ OSULLIVAN [facility] Start: 12-06-2023 End: 12-06-2023 Patient encounter procedure MIMI Shelby JESUSRY [facility] [place] Start: 11-08-2023 End: 11-08-2023 Emergency department patient visit [facility] Start: 07-01-2023 End: 07-01-2023 Patient encounter procedure Christ OSULLIVAN [facility] [place] Start: 03-01-2022 End: 03-01-2022 Patient encounter procedure Christ OSULLIVAN [facility] [place] Start: 12-23-2021 End: 12-24-[address] ANU CHE Facility:[facility] Procedures Date Procedure Procedure Detail Performing Clinician Start: 12-23-[address] CARROLL OSULLIVAN Comment on above: Performed By: #### P SAD #### [facility] [address] [place] [address] Dr. Max Pyle Start: 07-06-2016 Transrectal biopsy o f prostate using ultrasound guidance Christ OSULLIVAN Start: 07-06-2016 Ultrasonography guid ed transrectal cryoablation of prostate Christ OSULLIVAN Start: 07-31-2015 Cystoscopy Christ JOEAnn Start: 07-31-2015 Transurethral prostatectomy Christerica OSULLIVAN Start: 06-13-2015 Urodynamic studies Patr humphrey OSULLIVAN Start: 03-05-2014 Transrectal biopsy o f prostate using ultrasound guidance Christ OSULLIVAN Start: 03-05-2014 Ultrasonography guid ed transrectal cryoablation of prostate Christ OSULLIVAN Start: 08-28-2013 Transrectal biopsy o f prostate using ultrasound guidance Christ OSULLIVAN Start: 08-28-2013 Ultrasonography guid ed transrectal cryoablation of prostate Christ AVERY Start: 04-24-2013 Cystoscopy Christ JOEAnn Start: 03-28-2013 Urodynamic studies Patr alexjerald OSULLIVAN Tonsillectomy Christerica OSULLIVAN Immunizations Immunization Date Immunization Notes Care Provider Fabiano fry 06-04-2020 influenza virus vaccine, unspecified formulation Christ AVERY [facility] 03-17-2017 influenza, unspecifi ed formulation Christ OSULLIVAN [facility] 03-25-2016 influenza, unspecifi ed formulation Christ AVERY [facility] 04-30-2014 influenza virus vaccine, unspecified formulation Christ OSULLIVAN [facility] 04-30-2014 zoster vaccine, live Christ OSULLIVAN [facility] Payers Date Payer Category Payer Unknown [id number] 2019 Medicare [id number] 2019 Private Health Insurance [facility] [id number] 2019 Unknown [id number] 1961 Medicare [id number] 1961 Unknown [id number] 1953 Unknown [id number] 2.16.84 [id number] 1953 Unknown [id number] 2.16.84 [id number] 1953 Unknown [id number] 2.16.8 [id number] 1953 Unknown [id number] 2.16.8 [id number] 1953 Unknown [id number] 2.16.8 [id number] 1953 Unknown [id number] 2.16.8 [id number] 1953 Unknown [id number] 2.16.8 [id number] Social History Date Type Detail Facility Start: 03-01-2022 End: 06-08-2024 Tobacco smoking status Never smoked tobacco (finding) [facility] Sex Assigned At Male [facility] Tobacco smoking status Never [facility] Sexual Orientation [facility] Start: 02-21-2019 Sex Male (finding) [facility] Functional Status Date Assessment Result Facility 06-08-2024 Functional Status N/A [facility] 12-06-2023 Functional Status N/A [facility] 07-01-2023 Functional Status N/A [facility] 03-01-2022 Functional Status N/A [facility] Clinical Notes 03-01-2022 to 12-10-2024 Laboratory Note Date & Type Note Facility 12-10-2024 Hospital Discharge instructions Patient Education 12/10/2024 15:45:38 Benign Prostatic Hyperplasia Benign Prostatic Hyperplasia Benign prostatic hyperplasia (BPH) is an enlarged prostate gland that is caused by the normal aging process. The prostate may get bigger as a man gets older. The condition is not caused by cancer. The prostate is a walnut-sized gland that is involved in the production of semen. It is located in front of the rectum and below the bladder. The bladder stores urine. The urethra carries stored urine out of the body. An enlarged prostate can press on the urethra. This can make it harder to pass urine. The buildup of urine in the bladder can cause infection. Back pressure and infection may progress to bladder damage and kidney (renal) failure. What are the causes? This condition is part of the normal aging process. However, not all men develop problems from this condition. If the prostate enlarges away from the urethra, urine flow will not be blocked. If it enlarges toward the urethra and compresses it, there will be problems passing urine. What increases the risk? This condition is more likely to develop in men older than 50 years. What are the signs or symptoms? Symptoms of this condition include: Getting up often during the night to urinate. Needing to urinate frequently during the day. Difficulty starting urine flow. Decrease in size and strength of your urine stream. Leaking (dribbling) after urinating. Inability to pass urine. This needs immediate treatment. Inability to completely empty your bladder. Pain when you pass urine. This is more common if there is also an infection. Urinary tract infection (UTI). How is this diagnosed? This condition is diagnosed based on your medical history, a physical exam, and your symptoms. Tests will also be done, such as: A post-void bladder scan. This measures any amount of urine that may remain in your bladder after you finish urinating. A digital rectal exam. In a rectal exam, your health care provider checks your prostate by putting a lubricated, gloved finger into your rectum to feel the back of your prostate gland. This exam detects the size of your gland and any abnormal lumps or growths. An exam of your urine (urinalysis). A prostate specific antigen (PSA) screening. This is a blood test used to screen for prostate cancer. An ultrasound. This test uses sound waves to electronically produce a picture of your prostate gland. Your health care provider may refer you to a specialist in kidney and prostate diseases (urologist). How is this treated? Once symptoms begin, your health care provider will monitor your condition (active surveillance or watchful waiting). Treatment for this condition will depend on the severity of your condition. Treatment may include: Observation and yearly exams. This may be the only treatment needed if your condition and symptoms are mild. Medicines to relieve your symptoms, including: ?Medicines to shrink the prostate. ?Medicines to relax the muscle of the prostate. Surgery in severe cases. Surgery may include: ?Prostatectomy. In this procedure, the prostate tissue is removed completely through an open incision or with a laparoscope or robotics. ?Transurethral resection of the prostate (TURP). In this procedure, a tool is inserted through the opening at the tip of the penis (urethra). It is used to cut away tissue of the inner core of the prostate. The pieces are removed through the same opening of the penis. This removes the blockage. ?Transurethral incision (TUIP). In this procedure, small cuts are made in the prostate. This lessens the prostate's pressure on the urethra. ?Transurethral microwave thermotherapy (TUMT). This procedure uses microwaves to create heat. The heat destroys and removes a small amount of prostate tissue. ?Transurethral needle ablation (TUNA). This procedure uses radio frequencies to destroy and remove a small amount of prostate tissue. ?Interstitial laser coagulation (ILC). This procedure uses a laser to destroy and remove a small amount of prostate tissue. ?Transurethral electrovaporization (TUVP). This procedure uses electrodes to destroy and remove a small amount of prostate tissue. ?Prostatic urethral lift. This procedure inserts an implant to push the lobes of the prostate away from the urethra. Follow these instructions at home: Take [id number] and prescription medicines only as told by your health care provider. Monitor your symptoms for any changes. Contact your health care provider with any changes. Avoid drinking large amounts of liquid before going to bed or out in public. Avoid or reduce how much caffeine or alcohol you drink. Give yourself time when you urinate. Keep all follow-up visits. This is important. Contact a health care provider if: You have unexplained back pain. Your symptoms do not get better with treatment. You develop side effects from the medicine you are taking. Your urine becomes very dark or has a bad smell. Your lower abdomen becomes distended and you have trouble passing urine. Get help right away if: You have a fever or chills. You suddenly cannot urinate. You feel light-headed or very dizzy, or you faint. There are large amounts of blood or clots in your urine. Your urinary problems become hard to manage. You develop moderate to severe low back or flank pain. The flank is the side of your body between the ribs and the hip. These symptoms may be an emergency. Get help right away. Call 911. Do not wait to see if the symptoms will go away. Do not drive yourself to the hospital. Summary Benign prostatic hyperplasia (BPH) is an enlarged prostate that is caused by the normal aging process. It is not caused by cancer. An enlarged prostate can press on the urethra. This can make it hard to pass urine. This condition is more likely to develop in men older than 50 years. Get help right away if you suddenly cannot urinate. This information is not intended to replace advice given to you by your health care provider. Make sure you discuss any questions you have with your health care provider. Document Revised: 11/25/2021 Document Reviewed: 11/25/2021 [employer] Patient Education 2023 [email or web address]. Follow Up Care 06/08/2024 12:28:01 With:AVERY SORTO, Christ Ontiveros, URL Address: [facility] [address] [place] [address]- When: Unknown [facility] 12-10-2024 Note Patient Education Urology Benign Prostatic Hyperplasia Benign prostatic hyperplasia (BPH) is an enlarged prostate gland that is caused by the normal aging process. The prostate may get bigger as a man gets older. The condition is not caused by cancer. The prostate is a walnut-sized gland that is involved in the production of semen. It is located in front of the rectum and below the bladder. The bladder stores urine. The urethra carries stored urine out of the body. An enlarged prostate can press on the urethra. This can make it harder to pass urine. The buildup of urine in the bladder can cause infection. Back pressure and infection may progress to bladder damage and kidney (renal) failure. What are the causes? This condition is part of the normal aging process. However, not all men develop problems from this condition. If the prostate enlarges away from the urethra, urine flow will not be blocked. If it enlarges toward the urethra and compresses it, there will be problems passing urine. What increases the risk? This condition is more likely to develop in men older than 50 years. What are the signs or symptoms? Symptoms of this condition include: ??? Getting up often during the night to urinate. ??? Needing to urinate frequently during the day. ??? Difficulty starting urine flow. ??? Decrease in size and strength of your urine stream. ??? Leaking (dribbling) after urinating. ??? Inability to pass urine. This needs immediate treatment. ??? Inability to completely empty your bladder. ??? Pain when you pass urine. This is more common if there is also an infection. ??? Urinary tract infection (UTI). How is this diagnosed? This condition is diagnosed based on your medical history, a physical exam, and your symptoms. Tests will also be done, such as: ??? A post-void bladder scan. This measures any amount of urine that may remain in your bladder after you finish urinating. ??? A digital rectal exam. In a rectal exam, your health care provider checks your prostate by putting a lubricated, gloved finger into your rectum to feel the back of your prostate gland. This exam detects the size of your gland and any abnormal lumps or growths. ??? An exam of your urine (urinalysis). ??? A prostate specific antigen (PSA) screening. This is a blood test used to screen for prostate cancer. ??? An ultrasound. This test uses sound waves to electronically produce a picture of your prostate gland. Your health care provider may refer you to a specialist in kidney and prostate diseases (urologist). How is this treated? Once symptoms begin, your health care provider will monitor your condition (active surveillance or watchful waiting). Treatment for this condition will depend on the severity of your condition. Treatment may include: ??? Observation and yearly exams. This may be the only treatment needed if your condition and symptoms are mild. ??? Medicines to relieve your symptoms, including: ? Medicines to shrink the prostate. ? Medicines to relax the muscle of the prostate. ??? Surgery in severe cases. Surgery may include: ? Prostatectomy. In this procedure, the prostate tissue is removed completely through an open incision or with a laparoscope or robotics. ? Transurethral resection of the prostate (TURP). In this procedure, a tool is inserted through the opening at the tip of the penis (urethra). It is used to cut away tissue of the inner core of the prostate. The pieces are removed through the same opening of the penis. This removes the blockage. ? Transurethral incision (TUIP). In this procedure, small cuts are made in the prostate. This lessens the prostate's pressure on the urethra. ? Transurethral microwave thermotherapy (TUMT). This procedure uses microwaves to create heat. The heat destroys and removes a small amount of prostate tissue. ? Transurethral needle ablation (TUNA). This procedure uses radio frequencies to destroy and remove a small amount of prostate tissue. ? Interstitial laser coagulation (ILC). This procedure uses a laser to destroy and remove a small amount of prostate tissue. ? Transurethral electrovaporization (TUVP). This procedure uses electrodes to destroy and remove a small amount of prostate tissue. ? Prostatic urethral lift. This procedure inserts an implant to push the lobes of the prostate away from the urethra. Follow these instructions at home: ??? Take [id number] and prescription medicines only as told by your health care provider. ??? Monitor your symptoms for any changes. Contact your health care provider with any changes. ??? Avoid drinking large amounts of liquid before going to bed or out in public. ??? Avoid or reduce how much caffeine or alcohol you drink. ??? Give yourself time when you urinate. ??? Keep all follow-up visits. This is important. Contact a health care provider if: ??? You have unexplained back pain. ??? Your symptoms do not get (more content not included)... [facility] 10[facility]24 Hospital Discharge instructions Patient Education 10/29/2024 14:15:44 Benign Prostatic Hyperplasia Benign Prostatic Hyperplasia Benign prostatic hyperplasia (BPH) is an enlarged prostate gland that is caused by the normal aging process. The prostate may get bigger as a man gets older. The condition is not caused by cancer. The prostate is a walnut-sized gland that is involved in the production of semen. It is located in front of the rectum and below the bladder. The bladder stores urine. The urethra carries stored urine out of the body. An enlarged prostate can press on the urethra. This can make it harder to pass urine. The buildup of urine in the bladder can cause infection. Back pressure and infection may progress to bladder damage and kidney (renal) failure. What are the causes? This condition is part of the normal aging process. However, not all men develop problems from this condition. If the prostate enlarges away from the urethra, urine flow will not be blocked. If it enlarges toward the urethra and compresses it, there will be problems passing urine. What increases the risk? This condition is more likely to develop in men older than 50 years. What are the signs or symptoms? Symptoms of this condition include: Getting up often during the night to urinate. Needing to urinate frequently during the day. Difficulty starting urine flow. Decrease in size and strength of your urine stream. Leaking (dribbling) after urinating. Inability to pass urine. This needs immediate treatment. Inability to completely empty your bladder. Pain when you pass urine. This is more common if there is also an infection. Urinary tract infection (UTI). How is this diagnosed? This condition is diagnosed based on your medical history, a physical exam, and your symptoms. Tests will also be done, such as: A post-void bladder scan. This measures any amount of urine that may remain in your bladder after you finish urinating. A digital rectal exam. In a rectal exam, your health care provider checks your prostate by putting a lubricated, gloved finger into your rectum to feel the back of your prostate gland. This exam detects the size of your gland and any abnormal lumps or growths. An exam of your urine (urinalysis). A prostate specific antigen (PSA) screening. This is a blood test used to screen for prostate cancer. An ultrasound. This test uses sound waves to electronically produce a picture of your prostate gland. Your health care provider may refer you to a specialist in kidney and prostate diseases (urologist). How is this treated? Once symptoms begin, your health care provider will monitor your condition (active surveillance or watchful waiting). Treatment for this condition will depend on the severity of your condition. Treatment may include: Observation and yearly exams. This may be the only treatment needed if your condition and symptoms are mild. Medicines to relieve your symptoms, including: ?Medicines to shrink the prostate. ?Medicines to relax the muscle of the prostate. Surgery in severe cases. Surgery may include: ?Prostatectomy. In this procedure, the prostate tissue is removed completely through an open incision or with a laparoscope or robotics. ?Transurethral resection of the prostate (TURP). In this procedure, a tool is inserted through the opening at the tip of the penis (urethra). It is used to cut away tissue of the inner core of the prostate. The pieces are removed through the same opening of the penis. This removes the blockage. ?Transurethral incision (TUIP). In this procedure, small cuts are made in the prostate. This lessens the prostate's pressure on the urethra. ?Transurethral microwave thermotherapy (TUMT). This procedure uses microwaves to create heat. The heat destroys and removes a small amount of prostate tissue. ?Transurethral needle ablation (TUNA). This procedure uses radio frequencies to destroy and remove a small amount of prostate tissue. ?Interstitial laser coagulation (ILC). This procedure uses a laser to destroy and remove a small amount of prostate tissue. ?Transurethral electrovaporization (TUVP). This procedure uses electrodes to destroy and remove a small amount of prostate tissue. ?Prostatic urethral lift. This procedure inserts an implant to push the lobes of the prostate away from the urethra. Follow these instructions at home: Take tdei-oit-[id number] and prescription medicines only as told by your health care provider. Monitor your symptoms for any changes. Contact your health care provider with any changes. Avoid drinking large amounts of liquid before going to bed or out in public. Avoid or reduce how much caffeine or alcohol you drink. Give yourself time when you urinate. Keep all follow-up visits. This is important. Contact a health care provider if: You have unexplained back pain. Your symptoms do not get better with treatment. You develop side effects from the medicine you are taking. Your urine becomes very dark or has a bad smell. Your lower abdomen becomes distended and you have trouble passing urine. Get help right away if: You have a fever or chills. You suddenly cannot urinate. You feel light-headed or very dizzy, or you faint. There are large amounts of blood or clots in your urine. Your urinary problems become hard to manage. You develop moderate to severe low back or flank pain. The flank is the side of your body between the ribs and the hip. These symptoms may be an emergency. Get help right away. Call 911. Do not wait to see if the symptoms will go away. Do not drive yourself to the hospital. Summary Benign prostatic hyperplasia (BPH) is an enlarged prostate that is caused by the normal aging process. It is not caused by cancer. An enlarged prostate can press on the urethra. This can make it hard to pass urine. This condition is more likely to develop in men older than 50 years. Get help right away if you suddenly cannot urinate. This information is not intended to replace advice given to you by your health care provider. Make sure you discuss any questions you have with your health care provider. Document Revised: 11/25/2021 Document Reviewed: 11/25/2021 [employer] Patient Education 2023 [email or web address]. Follow Up Care 09/26/2024 15:46:44 With:Keep previously scheduled follow-up appointment. Address: When: Unknown [facility] [employer] 10-29-2024 Note Patient Education Urology Benign Prostatic Hyperplasia Benign prostatic hyperplasia (BPH) is an enlarged prostate gland that is caused by the normal aging process. The prostate may get bigger as a man gets older. The condition is not caused by cancer. The prostate is a walnut-sized gland that is involved in the production of semen. It is located in front of the rectum and below the bladder. The bladder stores urine. The urethra carries stored urine out of the body. An enlarged prostate can press on the urethra. This can make it harder to pass urine. The buildup of urine in the bladder can cause infection. Back pressure and infection may progress to bladder damage and kidney (renal) failure. What are the causes? This condition is part of the normal aging process. However, not all men develop problems from this condition. If the prostate enlarges away from the urethra, urine flow will not be blocked. If it enlarges toward the urethra and compresses it, there will be problems passing urine. What increases the risk? This condition is more likely to develop in men older than 50 years. What are the signs or symptoms? Symptoms of this condition include: ??? Getting up often during the night to urinate. ??? Needing to urinate frequently during the day. ??? Difficulty starting urine flow. ??? Decrease in size and strength of your urine stream. ??? Leaking (dribbling) after urinating. ??? Inability to pass urine. This needs immediate treatment. ??? Inability to completely empty your bladder. ??? Pain when you pass urine. This is more common if there is also an infection. ??? Urinary tract infection (UTI). How is this diagnosed? This condition is diagnosed based on your medical history, a physical exam, and your symptoms. Tests will also be done, such as: ??? A post-void bladder scan. This measures any amount of urine that may remain in your bladder after you finish urinating. ??? A digital rectal exam. In a rectal exam, your health care provider checks your prostate by putting a lubricated, gloved finger into your rectum to feel the back of your prostate gland. This exam detects the size of your gland and any abnormal lumps or growths. ??? An exam of your urine (urinalysis). ??? A prostate specific antigen (PSA) screening. This is a blood test used to screen for prostate cancer. ??? An ultrasound. This test uses sound waves to electronically produce a picture of your prostate gland. Your health care provider may refer you to a specialist in kidney and prostate diseases (urologist). How is this treated? Once symptoms begin, your health care provider will monitor your condition (active surveillance or watchful waiting). Treatment for this condition will depend on the severity of your condition. Treatment may include: ??? Observation and yearly exams. This may be the only treatment needed if your condition and symptoms are mild. ??? Medicines to relieve your symptoms, including: ? Medicines to shrink the prostate. ? Medicines to relax the muscle of the prostate. ??? Surgery in severe cases. Surgery may include: ? Prostatectomy. In this procedure, the prostate tissue is removed completely through an open incision or with a laparoscope or robotics. ? Transurethral resection of the prostate (TURP). In this procedure, a tool is inserted through the opening at the tip of the penis (urethra). It is used to cut away tissue of the inner core of the prostate. The pieces are removed through the same opening of the penis. This removes the blockage. ? Transurethral incision (TUIP). In this procedure, small cuts are made in the prostate. This lessens the prostate's pressure on the urethra. ? Transurethral microwave thermotherapy (TUMT). This procedure uses microwaves to create heat. The heat destroys and removes a small amount of prostate tissue. ? Transurethral needle ablation (TUNA). This procedure uses radio frequencies to destroy and remove a small amount of prostate tissue. ? Interstitial laser coagulation (ILC). This procedure uses a laser to destroy and remove a small amount of prostate tissue. ? Transurethral electrovaporization (TUVP). This procedure uses electrodes to destroy and remove a small amount of prostate tissue. ? Prostatic urethral lift. This procedure inserts an implant to push the lobes of the prostate away from the urethra. Follow these instructions at home: ??? Take gtmh-ffa-aqaolwg and prescription medicines only as told by your health care provider. ??? Monitor your symptoms for any changes. Contact your health care provider with any changes. ??? Avoid drinking large amounts of liquid before going to bed or out in public. ??? Avoid or reduce how much caffeine or alcohol you drink. ??? Give yourself time when you urinate. ??? Keep all follow-up visits. This is important. Contact a health care provider if: ??? You have unexplained back pain. ??? Your symptoms do not get (more content not included)... [facility] 06[facility]24 Hospital Discharge instructions Patient Education 06/08/2024 12:21:05 Benign Prostatic Hyperplasia Benign Prostatic Hyperplasia Benign prostatic hyperplasia (BPH) is an enlarged prostate gland that is caused by the normal aging process. The prostate may get bigger as a man gets older. The condition is not caused by cancer. The prostate is a walnut-sized gland that is involved in the production of semen. It is located in front of the rectum and below the bladder. The bladder stores urine. The urethra carries stored urine out of the body. An enlarged prostate can press on the urethra. This can make it harder to pass urine. The buildup of urine in the bladder can cause infection. Back pressure and infection may progress to bladder damage and kidney (renal) failure. What are the causes? This condition is part of the normal aging process. However, not all men develop problems from this condition. If the prostate enlarges away from the urethra, urine flow will not be blocked. If it enlarges toward the urethra and compresses it, there will be problems passing urine. What increases the risk? This condition is more likely to develop in men older than 50 years. What are the signs or symptoms? Symptoms of this condition include: Getting up often during the night to urinate. Needing to urinate frequently during the day. Difficulty starting urine flow. Decrease in size and strength of your urine stream. Leaking (dribbling) after urinating. Inability to pass urine. This needs immediate treatment. Inability to completely empty your bladder. Pain when you pass urine. This is more common if there is also an infection. Urinary tract infection (UTI). How is this diagnosed? This condition is diagnosed based on your medical history, a physical exam, and your symptoms. Tests will also be done, such as: A post-void bladder scan. This measures any amount of urine that may remain in your bladder after you finish urinating. A digital rectal exam. In a rectal exam, your health care provider checks your prostate by putting a lubricated, gloved finger into your rectum to feel the back of your prostate gland. This exam detects the size of your gland and any abnormal lumps or growths. An exam of your urine (urinalysis). A prostate specific antigen (PSA) screening. This is a blood test used to screen for prostate cancer. An ultrasound. This test uses sound waves to electronically produce a picture of your prostate gland. Your health care provider may refer you to a specialist in kidney and prostate diseases (urologist). How is this treated? Once symptoms begin, your health care provider will monitor your condition (active surveillance or watchful waiting). Treatment for this condition will depend on the severity of your condition. Treatment may include: Observation and yearly exams. This may be the only treatment needed if your condition and symptoms are mild. Medicines to relieve your symptoms, including: ?Medicines to shrink the prostate. ?Medicines to relax the muscle of the prostate. Surgery in severe cases. Surgery may include: ?Prostatectomy. In this procedure, the prostate tissue is removed completely through an open incision or with a laparoscope or robotics. ?Transurethral resection of the prostate (TURP). In this procedure, a tool is inserted through the opening at the tip of the penis (urethra). It is used to cut away tissue of the inner core of the prostate. The pieces are removed through the same opening of the penis. This removes the blockage. ?Transurethral incision (TUIP). In this procedure, small cuts are made in the prostate. This lessens the prostate's pressure on the urethra. ?Transurethral microwave thermotherapy (TUMT). This procedure uses microwaves to create heat. The heat destroys and removes a small amount of prostate tissue. ?Transurethral needle ablation (TUNA). This procedure uses radio frequencies to destroy and remove a small amount of prostate tissue. ?Interstitial laser coagulation (ILC). This procedure uses a laser to destroy and remove a small amount of prostate tissue. ?Transurethral electrovaporization (TUVP). This procedure uses electrodes to destroy and remove a small amount of prostate tissue. ?Prostatic urethral lift. This procedure inserts an implant to push the lobes of the prostate away from the urethra. Follow these instructions at home: Take yzrt-yzi-swlcojc and prescription medicines only as told by your health care provider. Monitor your symptoms for any changes. Contact your health care provider with any changes. Avoid drinking large amounts of liquid before going to bed or out in public. Avoid or reduce how much caffeine or alcohol you drink. Give yourself time when you urinate. Keep all follow-up visits. This is important. Contact a health care provider if: You have unexplained back pain. Your symptoms do not get better with treatment. You develop side effects from the medicine you are taking. Your urine becomes very dark or has a bad smell. Your lower abdomen becomes distended and you have trouble passing urine. Get help right away if: You have a fever or chills. You suddenly cannot urinate. You feel light-headed or very dizzy, or you faint. There are large amounts of blood or clots in your urine. Your urinary problems become hard to manage. You develop moderate to severe low back or flank pain. The flank is the side of your body between the ribs and the hip. These symptoms may be an emergency. Get help right away. Call 911. Do not wait to see if the symptoms will go away. Do not drive yourself to the hospital. Summary Benign prostatic hyperplasia (BPH) is an enlarged prostate that is caused by the normal aging process. It is not caused by cancer. An enlarged prostate can press on the urethra. This can make it hard to pass urine. This condition is more likely to develop in men older than 50 years. Get help right away if you suddenly cannot urinate. This information is not intended to replace advice given to you by your health care provider. Make sure you discuss any questions you have with your health care provider. Document Revised: 11/25/2021 Document Reviewed: 11/25/2021 [employer] Patient Education 2023 [email or web address]. Follow Up Care 12/06/2023 13:07:22 With:AVERY SORTO, Christ Ontiveros, URL Address: [address] [place], [place] [id number]- When: Unknown [facility] 06-08-2024 Note Patient Education Urology Benign Prostatic Hyperplasia Benign prostatic hyperplasia (BPH) is an enlarged prostate gland that is caused by the normal aging process. The prostate may get bigger as a man gets older. The condition is not caused by cancer. The prostate is a walnut-sized gland that is involved in the production of semen. It is located in front of the rectum and below the bladder. The bladder stores urine. The urethra carries stored urine out of the body. An enlarged prostate can press on the urethra. This can make it harder to pass urine. The buildup of urine in the bladder can cause infection. Back pressure and infection may progress to bladder damage and kidney (renal) failure. What are the causes? This condition is part of the normal aging process. However, not all men develop problems from this condition. If the prostate enlarges away from the urethra, urine flow will not be blocked. If it enlarges toward the urethra and compresses it, there will be problems passing urine. What increases the risk? This condition is more likely to develop in men older than 50 years. What are the signs or symptoms? Symptoms of this condition include: ??? Getting up often during the night to urinate. ??? Needing to urinate frequently during the day. ??? Difficulty starting urine flow. ??? Decrease in size and strength of your urine stream. ??? Leaking (dribbling) after urinating. ??? Inability to pass urine. This needs immediate treatment. ??? Inability to completely empty your bladder. ??? Pain when you pass urine. This is more common if there is also an infection. ??? Urinary tract infection (UTI). How is this diagnosed? This condition is diagnosed based on your medical history, a physical exam, and your symptoms. Tests will also be done, such as: ??? A post-void bladder scan. This measures any amount of urine that may remain in your bladder after you finish urinating. ??? A digital rectal exam. In a rectal exam, your health care provider checks your prostate by putting a lubricated, gloved finger into your rectum to feel the back of your prostate gland. This exam detects the size of your gland and any abnormal lumps or growths. ??? An exam of your urine (urinalysis). ??? A prostate specific antigen (PSA) screening. This is a blood test used to screen for prostate cancer. ??? An ultrasound. This test uses sound waves to electronically produce a picture of your prostate gland. Your health care provider may refer you to a specialist in kidney and prostate diseases (urologist). How is this treated? Once symptoms begin, your health care provider will monitor your condition (active surveillance or watchful waiting). Treatment for this condition will depend on the severity of your condition. Treatment may include: ??? Observation and yearly exams. This may be the only treatment needed if your condition and symptoms are mild. ??? Medicines to relieve your symptoms, including: ? Medicines to shrink the prostate. ? Medicines to relax the muscle of the prostate. ??? Surgery in severe cases. Surgery may include: ? Prostatectomy. In this procedure, the prostate tissue is removed completely through an open incision or with a laparoscope or robotics. ? Transurethral resection of the prostate (TURP). In this procedure, a tool is inserted through the opening at the tip of the penis (urethra). It is used to cut away tissue of the inner core of the prostate. The pieces are removed through the same opening of the penis. This removes the blockage. ? Transurethral incision (TUIP). In this procedure, small cuts are made in the prostate. This lessens the prostate's pressure on the urethra. ? Transurethral microwave thermotherapy (TUMT). This procedure uses microwaves to create heat. The heat destroys and removes a small amount of prostate tissue. ? Transurethral needle ablation (TUNA). This procedure uses radio frequencies to destroy and remove a small amount of prostate tissue. ? Interstitial laser coagulation (ILC). This procedure uses a laser to destroy and remove a small amount of prostate tissue. ? Transurethral electrovaporization (TUVP). This procedure uses electrodes to destroy and remove a small amount of prostate tissue. ? Prostatic urethral lift. This procedure inserts an implant to push the lobes of the prostate away from the urethra. Follow these instructions at home: ??? Take oqfz-izt-jhcedyo and prescription medicines only as told by your health care provider. ??? Monitor your symptoms for any changes. Contact your health care provider with any changes. ??? Avoid drinking large amounts of liquid before going to bed or out in public. ??? Avoid or reduce how much caffeine or alcohol you drink. ??? Give yourself time when you urinate. ??? Keep all follow-up visits. This is important. Contact a health care provider if: ??? You have unexplained back pain. ??? Your symptoms do not get (more content not included)... [facility] 12-[facility]-2023 Hospital Discharge instructions Patient Education 12/06/2023 13:04:45 Benign Prostatic Hyperplasia Benign Prostatic Hyperplasia Benign prostatic hyperplasia (BPH) is an enlarged prostate gland that is caused by the normal aging process. The prostate may get bigger as a man gets older. The condition is not caused by cancer. The prostate is a walnut-sized gland that is involved in the production of semen. It is located in front of the rectum and below the bladder. The bladder stores urine. The urethra carries stored urine out of the body. An enlarged prostate can press on the urethra. This can make it harder to pass urine. The buildup of urine in the bladder can cause infection. Back pressure and infection may progress to bladder damage and kidney (renal) failure. What are the causes? This condition is part of the normal aging process. However, not all men develop problems from this condition. If the prostate enlarges away from the urethra, urine flow will not be blocked. If it enlarges toward the urethra and compresses it, there will be problems passing urine. What increases the risk? This condition is more likely to develop in men older than 50 years. What are the signs or symptoms? Symptoms of this condition include: Getting up often during the night to urinate. Needing to urinate frequently during the day. Difficulty starting urine flow. Decrease in size and strength of your urine stream. Leaking (dribbling) after urinating. Inability to pass urine. This needs immediate treatment. Inability to completely empty your bladder. Pain when you pass urine. This is more common if there is also an infection. Urinary tract infection (UTI). How is this diagnosed? This condition is diagnosed based on your medical history, a physical exam, and your symptoms. Tests will also be done, such as: A post-void bladder scan. This measures any amount of urine that may remain in your bladder after you finish urinating. A digital rectal exam. In a rectal exam, your health care provider checks your prostate by putting a lubricated, gloved finger into your rectum to feel the back of your prostate gland. This exam detects the size of your gland and any abnormal lumps or growths. An exam of your urine (urinalysis). A prostate specific antigen (PSA) screening. This is a blood test used to screen for prostate cancer. An ultrasound. This test uses sound waves to electronically produce a picture of your prostate gland. Your health care provider may refer you to a specialist in kidney and prostate diseases (urologist). How is this treated? Once symptoms begin, your health care provider will monitor your condition (active surveillance or watchful waiting). Treatment for this condition will depend on the severity of your condition. Treatment may include: Observation and yearly exams. This may be the only treatment needed if your condition and symptoms are mild. Medicines to relieve your symptoms, including: ?Medicines to shrink the prostate. ?Medicines to relax the muscle of the prostate. Surgery in severe cases. Surgery may include: ?Prostatectomy. In this procedure, the prostate tissue is removed completely through an open incision or with a laparoscope or robotics. ?Transurethral resection of the prostate (TURP). In this procedure, a tool is inserted through the opening at the tip of the penis (urethra). It is used to cut away tissue of the inner core of the prostate. The pieces are removed through the same opening of the penis. This removes the blockage. ?Transurethral incision (TUIP). In this procedure, small cuts are made in the prostate. This lessens the prostate's pressure on the urethra. ?Transurethral microwave thermotherapy (TUMT). This procedure uses microwaves to create heat. The heat destroys and removes a small amount of prostate tissue. ?Transurethral needle ablation (TUNA). This procedure uses radio frequencies to destroy and remove a small amount of prostate tissue. ?Interstitial laser coagulation (ILC). This procedure uses a laser to destroy and remove a small amount of prostate tissue. ?Transurethral electrovaporization (TUVP). This procedure uses electrodes to destroy and remove a small amount of prostate tissue. ?Prostatic urethral lift. This procedure inserts an implant to push the lobes of the prostate away from the urethra. Follow these instructions at home: Take vgqx-gao-jmicodw and prescription medicines only as told by your health care provider. Monitor your symptoms for any changes. Contact your health care provider with any changes. Avoid drinking large amounts of liquid before going to bed or out in public. Avoid or reduce how much caffeine or alcohol you drink. Give yourself time when you urinate. Keep all follow-up visits. This is important. Contact a health care provider if: You have unexplained back pain. Your symptoms do not get better with treatment. You develop side effects from the medicine you are taking. Your urine becomes very dark or has a bad smell. Your lower abdomen becomes distended and you have trouble passing urine. Get help right away if: You have a fever or chills. You suddenly cannot urinate. You feel light-headed or very dizzy, or you faint. There are large amounts of blood or clots in your urine. Your urinary problems become hard to manage. You develop moderate to severe low back or flank pain. The flank is the side of your body between the ribs and the hip. These symptoms may be an emergency. Get help right away. Call 911. Do not wait to see if the symptoms will go away. Do not drive yourself to the hospital. Summary Benign prostatic hyperplasia (BPH) is an enlarged prostate that is caused by the normal aging process. It is not caused by cancer. An enlarged prostate can press on the urethra. This can make it hard to pass urine. This condition is more likely to develop in men older than 50 years. Get help right away if you suddenly cannot urinate. This information is not intended to replace advice given to you by your health care provider. Make sure you discuss any questions you have with your health care provider. Document Revised: 11/25/2021 Document Reviewed: 11/25/2021 [employer] Patient Education 2022 [email or web address]. Follow Up Care 07/01/2023 12:50:55 With:MIMI NGUYEN PA-C, URL Address: [address] [place] [phone] When: Unknown [facility] 07-01-2023 Hospital Discharge instructions Patient Education 07/01/2023 12:44:32 Benign Prostatic Hyperplasia Benign Prostatic Hyperplasia Benign prostatic hyperplasia (BPH) is an enlarged prostate gland that is caused by the normal aging process. The prostate may get bigger as a man gets older. The condition is not caused by cancer. The prostate is a walnut-sized gland that is involved in the production of semen. It is located in front of the rectum and below the bladder. The bladder stores urine. The urethra carries stored urine out of the body. An enlarged prostate can press on the urethra. This can make it harder to pass urine. The buildup of urine in the bladder can cause infection. Back pressure and infection may progress to bladder damage and kidney (renal) failure. What are the causes? This condition is part of the normal aging process. However, not all men develop problems from this condition. If the prostate enlarges away from the urethra, urine flow will not be blocked. If it enlarges toward the urethra and compresses it, there will be problems passing urine. What increases the risk? This condition is more likely to develop in men older than 50 years. What are the signs or symptoms? Symptoms of this condition include: Getting up often during the night to urinate. Needing to urinate frequently during the day. Difficulty starting urine flow. Decrease in size and strength of your urine stream. Leaking (dribbling) after urinating. Inability to pass urine. This needs immediate treatment. Inability to completely empty your bladder. Pain when you pass urine. This is more common if there is also an infection. Urinary tract infection (UTI). How is this diagnosed? This condition is diagnosed based on your medical history, a physical exam, and your symptoms. Tests will also be done, such as: A post-void bladder scan. This measures any amount of urine that may remain in your bladder after you finish urinating. A digital rectal exam. In a rectal exam, your health care provider checks your prostate by putting a lubricated, gloved finger into your rectum to feel the back of your prostate gland. This exam detects the size of your gland and any abnormal lumps or growths. An exam of your urine (urinalysis). A prostate specific antigen (PSA) screening. This is a blood test used to screen for prostate cancer. An ultrasound. This test uses sound waves to electronically produce a picture of your prostate gland. Your health care provider may refer you to a specialist in kidney and prostate diseases (urologist). How is this treated? Once symptoms begin, your health care provider will monitor your condition (active surveillance or watchful waiting). Treatment for this condition will depend on the severity of your condition. Treatment may include: Observation and yearly exams. This may be the only treatment needed if your condition and symptoms are mild. Medicines to relieve your symptoms, including: ?Medicines to shrink the prostate. ?Medicines to relax the muscle of the prostate. Surgery in severe cases. Surgery may include: ?Prostatectomy. In this procedure, the prostate tissue is removed completely through an open incision or with a laparoscope or robotics. ?Transurethral resection of the prostate (TURP). In this procedure, a tool is inserted through the opening at the tip of the penis (urethra). It is used to cut away tissue of the inner core of the prostate. The pieces are removed through the same opening of the penis. This removes the blockage. ?Transurethral incision (TUIP). In this procedure, small cuts are made in the prostate. This lessens the prostate's pressure on the urethra. ?Transurethral microwave thermotherapy (TUMT). This procedure uses microwaves to create heat. The heat destroys and removes a small amount of prostate tissue. ?Transurethral needle ablation (TUNA). This procedure uses radio frequencies to destroy and remove a small amount of prostate tissue. ?Interstitial laser coagulation (ILC). This procedure uses a laser to destroy and remove a small amount of prostate tissue. ?Transurethral electrovaporization (TUVP). This procedure uses electrodes to destroy and remove a small amount of prostate tissue. ?Prostatic urethral lift. This procedure inserts an implant to push the lobes of the prostate away from the urethra. Follow these instructions at home: Take losc-ity-stoyuzf and prescription medicines only as told by your health care provider. Monitor your symptoms for any changes. Contact your health care provider with any changes. Avoid drinking large amounts of liquid before going to bed or out in public. Avoid or reduce how much caffeine or alcohol you drink. Give yourself time when you urinate. Keep all follow-up visits. This is important. Contact a health care provider if: You have unexplained back pain. Your symptoms do not get better with treatment. You develop side effects from the medicine you are taking. Your urine becomes very dark or has a bad smell. Your lower abdomen becomes distended and you have trouble passing urine. Get help right away if: You have a fever or chills. You suddenly cannot urinate. You feel light-headed or very dizzy, or you faint. There are large amounts of blood or clots in your urine. Your urinary problems become hard to manage. You develop moderate to severe low back or flank pain. The flank is the side of your body between the ribs and the hip. These symptoms may be an emergency. Get help right away. Call 911. Do not wait to see if the symptoms will go away. Do not drive yourself to the hospital. Summary Benign prostatic hyperplasia (BPH) is an enlarged prostate that is caused by the normal aging process. It is not caused by cancer. An enlarged prostate can press on the urethra. This can make it hard to pass urine. This condition is more likely to develop in men older than 50 years. Get help right away if you suddenly cannot urinate. This information is not intended to replace advice given to you by your health care provider. Make sure you discuss any questions you have with your health care provider. Document Revised: 11/25/2021 Document Reviewed: 11/25/2021 [employer] Patient Education 2022 [email or web address]. Follow Up Care 02/28/2023 12:44:24 With:AVERY SORTO, Christ Ontiveros, URL Address: [facility] [address] [place] [phone]- [phone] When: Unknown Comments:4 mos (new med) [facility] 03-01-2022 Hospital Discharge instructions Patient Education 03/01/2022 11:21:46 Benign Prostatic Hyperplasia Benign Prostatic Hyperplasia Benign prostatic hyperplasia (BPH) is an enlarged prostate gland that is caused by the normal aging process and not by cancer. The prostate is a walnut-sized gland that is involved in the production of semen. It is located in front of the rectum and below the bladder. The bladder stores urine and the urethra is the tube that carries the urine out of the body. The prostate may get bigger as a man gets older. An enlarged prostate can press on the urethra. This can make it harder to pass urine. The build-up of urine in the bladder can cause infection. Back pressure and infection may progress to bladder damage and kidney (renal) failure. What are the causes? This condition is part of a normal aging process. However, not all men develop problems from this condition. If the prostate enlarges away from the urethra, urine flow will not be blocked. If it enlarges toward the urethra and compresses it, there will be problems passing urine. What increases the risk? This condition is more likely to develop in men over the age of 50 years. What are the signs or symptoms? Symptoms of this condition include: Getting up often during the night to urinate. Needing to urinate frequently during the day. Difficulty starting urine flow. Decrease in size and strength of your urine stream. Leaking (dribbling) after urinating. Inability to pass urine. This needs immediate treatment. Inability to completely empty your bladder. Pain when you pass urine. This is more common if there is also an infection. Urinary tract infection (UTI). How is this diagnosed? This condition is diagnosed based on your medical history, a physical exam, and your symptoms. Tests will also be done, such as: A post-void bladder scan. This measures any amount of urine that may remain in your bladder after you finish urinating. A digital rectal exam. In a rectal exam, your health care provider checks your prostate by putting a lubricated, gloved finger into your rectum to feel the back of your prostate gland. This exam detects the size of your gland and any abnormal lumps or growths. An exam of your urine (urinalysis). A prostate specific antigen (PSA) screening. This is a blood test used to screen for prostate cancer. An ultrasound. This test uses sound waves to electronically produce a picture of your prostate gland. Your health care provider may refer you to a specialist in kidney and prostate diseases (urologist). How is this treated? Once symptoms begin, your health care provider will monitor your condition (active surveillance or watchful waiting). Treatment for this condition will depend on the severity of your condition. Treatment may include: Observation and yearly exams. This may be the only treatment needed if your condition and symptoms are mild. Medicines to relieve your symptoms, including: ?Medicines to shrink the prostate. ?Medicines to relax the muscle of the prostate. Surgery in severe cases. Surgery may include: ?Prostatectomy. In this procedure, the prostate tissue is removed completely through an open incision or with a laparoscope or robotics. ?Transurethral resection of the prostate (TURP). In this procedure, a tool is inserted through the opening at the tip of the penis (urethra). It is used to cut away tissue of the inner core of the prostate. The pieces are removed through the same opening of the penis. This removes the blockage. ?Transurethral incision (TUIP). In this procedure, small cuts are made in the prostate. This lessens the prostate's pressure on the urethra. ?Transurethral microwave thermotherapy (TUMT). This procedure uses microwaves to create heat. The heat destroys and removes a small amount of prostate tissue. ?Transurethral needle ablation (TUNA). This procedure uses radio frequencies to destroy and remove a small amount of prostate tissue. ?Interstitial laser coagulation (ILC). This procedure uses a laser to destroy and remove a small amount of prostate tissue. ?Transurethral electrovaporization (TUVP). This procedure uses electrodes to destroy and remove a small amount of prostate tissue. ?Prostatic urethral lift. This procedure inserts an implant to push the lobes of the prostate away from the urethra. Follow these instructions at home: Take [id number] and prescription medicines only as told by your health care provider. Monitor your symptoms for any changes. Contact your health care provider with any changes. Avoid drinking large amounts of liquid before going to bed or out in public. Avoid or reduce how much caffeine or alcohol you drink. Give yourself time when you urinate. Keep all follow-up visits as told by your health care provider. This is important. Contact a health care provider if: You have unexplained back pain. Your symptoms do not get better with treatment. You develop side effects from the medicine you are taking. Your urine becomes very dark or has a bad smell. Your lower abdomen becomes distended and you have trouble passing your urine. Get help right away if: You have a fever or chills. You suddenly cannot urinate. You feel lightheaded, or very dizzy, or you faint. There are large amounts of blood or clots in the urine. Your urinary problems become hard to manage. You develop moderate to severe low back or flank pain. The flank is the side of your body between the ribs and the hip. These symptoms may represent a serious problem that is an emergency. Do not wait to see if the symptoms will go away. Get medical help right away. Call your local emergency services (911 in the [place] Do not drive yourself to the hospital. Summary Benign prostatic hyperplasia (BPH) is an enlarged prostate that is caused by the normal aging process and not by cancer. An enlarged prostate can press on the urethra. This can make it hard to pass urine. This condition is part of a normal aging process and is more likely to develop in men over the age of 50 years. Get help right away if you suddenly cannot urinate. This information is not intended to replace advice given to you by your health care provider. Make sure you discuss any questions you have with your health care provider. Document Released: 05/09/2006 Document Revised: 04/03/2019 Document Reviewed: 06/13/2017 [employer] Patient Education 2020 [email or web address]. Follow Up Care 12/22/2020 12:21:58 With:Christ OSULLIVAN MD, URL Address: [facility] [address] [place] [address]- [phone] When:03/01/2023 Comments:[facility] Evaluation + Plan note Future Appointments Appointment Date:02/28/2023 11:15:00 AM Scheduled Provider:Christ OSULLIVAN MD Location:[facility] Appointment Type:URO Office Visit Diagnostic Tests PendingPSA Total 03/01/22 [facility] Evaluation + Plan note Future Appointments Appointment Date:11/11/2023 09:45:00 AM Scheduled Provider:Christ OSULLIVAN MD Location:[facility] Appointment Type:URO Office Visit [facility] Evaluation + Plan note Future Appointments Appointment Date:06/08/2024 10:45:00 AM Scheduled Provider:Christ OSULLIVAN MD Location:[facility] Appointment Type:URO Office Visit Diagnostic Tests PendingPSA Total 12/06/23 [facility] Evaluation + Plan note Future Appointments Appointment Date:12/10/2024 01:15:00 PM Scheduled Provider:Christ OSULLIVAN MD Location:[facility] Appointment Type:URO Office Visit [facility] Evaluation + Plan note Future Appointments Appointment Date:06/14/2025 10:45:00 AM Scheduled Provider:Christ OSULLIVAN MD Location:[facility] Appointment Type:URO Office Visit Future Scheduled TestsPSA Free & Total 05/23/25 [facility] Hospital course Narrative No data available for this section [facility] Progress note No data available for this section [facility] Summary Purpose Family History No Family History Records Found No data available for this section No Family History Records Found No data available for this section No data available for this section No data available for this section No data available for this section No Family History Records Found Advance Directives No Advanced Directives Records FoundNo Advanced Directives Records FoundNo Advanced Directives Records Found Additional Source Comments (unrecognized sect ion and content) No Status Records FoundNo Status Records FoundNo Status Records Found INFORMATION SOURCE (unrecogn ized section and content) DATE CREATED AUTHOR 12/24/2021 [facility] DATE CREATED AUTHOR AUTHOR'S ORGANIZ ATION 11/10/2023 [facility] DATE CREATED AUTHOR AUTHOR'S ORGANIZ ATION 12/12/2024 Esdras Lao [facility] Patient Care team informatio n (unrecognized section and content) Personnel Name: Anu Che MD Address: Address: [address] [address] Personnel Name: Anu Che MD Address: Address: [address] [place], [place] [id number] Personnel Name: Anu Che MD Address: Address: [address] [place] [address] Personnel Name: Anu Che MD Address: Address: [address] [place], [place] [id number] Personnel Name: Anu Che MD Address: [address] [place] [place] [address] Telecom: Personnel Name: Anu Che MD Address: [address] [place] [place] [address] Telecom: FOR RECORDS PERTAINING TO PATIENTS WHO ARE OR HAVE BEEN ENROLLED IN A CHEMICAL DEPENDENCY/SUBSTANCEABUSE PROGRAM, SOME INFORMATION MAY BE OMITTED. This clinical summary was aggregated from multiple sources. Caution should be exercised in using it in the provision of clinical care. This summary normalizes information from multiple sources, and as a consequence, information in this document may materially change the coding, format and clinical context of patient data. In addition, data may be omitted in some cases. CLINICAL DECISIONS SHOULD BE BASED ON THE PRIMARY CLINICAL RECORDS. [facility] provides no warranty or guarantee of the accuracy or completeness of information in this document.
== END 2024-12-14 13:37 | disposition home or self-care (01) ==
LOC: LAB 13:36
PROVIDERS: PCP Family Medicine; Visit Provider Family Medicine
DX: Z12.12 Encounter for screening for malignant neoplasm of rectum (principal)
CPT/HCPCS: G0328

== ENCOUNTER 2025-01-24 12:50 | Outpatient (OUT) | payer MEDICARE, OTHER, SELFPAY ==
--- OUTSIDE RECORDS SUMMARY | 2025-01-24 12:56 | XMS_ITS | CCD ---
Author Organization [facility] Care Team Providers Care Health Care Marketing Specialist Name Role Phone DR CHRIST OSULLIVAN Attending Unavailable CHINEDU, DR BRENNAN Primary Care Unavailable AVERY, DR BARTON Admitting Unavailable AVERY, DR BARTON Consulting Unavailable CHINEDU, DR BRENNAN Admitting Unavailable CHINEDU, DR BRENNAN Primary Care Unavailable CHINEDU, DR BRENNAN Consulting Unavailable CHINEDU, DR BRENNAN Attending Unavailable Anu Che Primary Care Physician Julienne Lott Attending Unavailable ANU CHE Primary Care Unavailable Christ OSULLIVAN Attending Unavailable Anu Che Referring Unavailable Zeferino TEJEDA Attending Unavailable Christ OSULLIVAN Attending Unavailable MIMI NGUYEN Attending Unavailable Christ OSULLIVAN Attending Unavailable Unavailable Primary Care Provider UnavailGENNARO Tavares Attending Unavailable Allergies Allergy Classification Reported Allergen(s) Allergy Type Date of Onset Reaction(s) Facility (2 sources) Magnesium; Translations: [Hismanal] Drug Allergy 6 [facility] (3 sources) Astemizole; Translations: [astemizole] Drug Allergy Tachycardia (finding) [facility] (1 source) No Known Medication Allergies; Translations: [No Known Medication Allergies] Propensity to adverse reactions (disorder) [facility] Rep[facility] (2 sources) Astemizole Propensity to adverse reactions 6 Other [facility] Medications Current Medications Medication Drug Class(es) Dates Sig (Normalized) Sig (Original) aspirin 81 mg oral tablet (3 sources) Platelet Aggregation Inhibitor, Nonsteroidal Anti-inflammatory Drug Start: 08-29-2019 take 1 mg by mouth once daily aspirin 81 mg oral tablet mg tab(s), Oral, Daily, Refills(s) 0 Start Date: 08/29/19 Status: Ordered Calcium, Magnesium and Zinc oral tablet (4 sources) Start: 06-08-2024 take 1 tablet by mouth once daily Calcium, Magnesium and Zinc oral tablet 1 tab(s), Oral, Daily Start Date: 06/08/24 Status: Ordered Repeat number: 1 Start: 06-08-2024 take 1 tablet by mary anne once daily Calcium, Magnesium and Zinc oral tablet 1 tab(s), Oral, Daily Start Date: 06/08/24 Status: Ordered cetirizine hydrochloride 10 mg oral tablet (7 sources) Histamine-1 Receptor Antagonist Start: 12-20-2024 take 1 tablet by mouth once daily cetirizine 10 mg Tab 10 mg = 1 tab(s), Oral, Daily, Refills(s) 0 Start Date: 12/20/24 Status: Ordered Repeat number: 1 Start: 06-08-2024 take 1 tablet by mary anne once daily as needed Zyrtec Dissolve 10 mg oral tablet, dispersible 10 mg = 1 tab(s), Oral, Daily, PRN for allergy symptoms Start Date: 06/08/24 Status: Ordered Repeat number: 1 Start: 08-29-2019 Zyrtec Daily, Refills(s) 0 Start Date: 08/29/19 Status: Ordered esomeprazole 20 mg delayed release oral capsule (7 sources) Proton Pump Inhibitor Start: 06-08-2024 take 1 capsule by mouth once daily Nexium 20 mg Cap-DR 20 mg = 1 cap(s), Oral, Daily Start Date: 06/08/24 Status: Ordered Repeat number: 1 Start: 08-29-2019 Nexium Oral, D aily, Refills(s) 0 Start Date: 08/29/19 Status: Ordered take 1 capsule by mo [facility] in the morning esomeprazole (NexIUM) [address] capsule Take 40 mg by mouth in the morning. Active finasteride 5 mg oral tablet (9 sources) 5-alpha Reductase Inhibitor Start: 12-09-2024 End: 12-05-2025 take 1 tablet by mouth once daily finasteride 5 mg Tab 5 mg = 1 tab(s), Oral, Daily, X 90 day(s), # 90 tab(s), Refills(s) 3, Pharmacy: [facility]/pharmacy #[id number], 180, cm, 12/10/24 14:50:00 EDT, Height/Length Dosing, 89.4, kg, 12/10/24 14:50:00 EDT, Weight Dosing Start Date: 12/10/24 Stop Date: 12/05/25 Status: Ordered Quantity: 90.0 Unit: tab(s) Repeat number: 4 Start: 02-28-2024 take 1 tablet by mary anne once daily finasteride 5 mg Tab 5 mg = 1 tab(s), Oral, Daily, # 90 tab(s), Refills(s) 3, Pharmacy: [facility]/pharmacy #[id number], 180, cm, 12/06/23 12:36:00 EDT, Height/Length Dosing, 82, kg, 12/06/23 12:36:00 EDT, Weight Dosing Start Date: 02/28/24 Status: Ordered Quantity: 90.0 Unit: tab(s) Repeat number: 4 Start: 02-16-2023 take 1 tablet by mary anne once daily finasteride 5 mg Tab 5 mg = 1 tab(s), Oral, Daily, # 90 tab(s), Refills(s) 3, Pharmacy: [facility]/pharmacy #[id number], 180, cm, 03/01/22 11:27:00 EDT, Height/Length Dosing, 99, kg, 03/01/22 11:27:00 EDT, Weight Dosing Start Date: 02/16/23 Status: Ordered Start: 01-28-2022 take 1 tablet by [facility] once daily finasteride 5 mg Tab 5 mg = 1 tab(s), Oral, Daily, # 90 tab(s), Refills(s) 3, Pharmacy: [facility]/pharmacy #[id number], 180, cm, 12/22/20 11:38:00 EDT, Height/Length Dosing, 99, kg, 12/22/20 11:38:00 EDT, Weight Dosing Start Date: 01/28/22 Status: Ordered glimepiride 2 mg oral tablet (7 sources) Sulfonylurea Start: 12-06-2023 take 1 tablet by mouth once daily at breakfast glimepiride (Amaryl) 2 MG tablet TAKE 1 TABLET BY MOUTH EVERY DAY WITH BREAKFAST OR THE FIRST MEAL OF THE DAY 12/07/2024 Active lovastatin 20 mg oral tablet (9 sources) HMG-CoA Reductase Inhibitor Start: 08-29-2019 take 1 tablet by mouth once daily lovastatin (Mevacor) 20 MG tablet Take 20 mg by mouth Daily 11/02/2024 Active Start: 08-29-2019 lovastatin Ora l, Refills(s) 0 Start Date: 08/29/19 Status: Ordered metFORMIN hydrochloride 500 mg oral tablet (7 sources) Biguanide Start: 12-06-2023 take 1 tablet by mouth in the morning metFORMIN (Glucophage) 500 MG tablet Take 500 mg by mouth in the morning and 500 mg in the evening. Take with meals. 11/03/2024 Active 24 hr mirabegron 50 mg extended release oral tablet (2 sources) beta3-Adrenergic Agonist Start: 06-08-2024 take 1 tablet by mouth once daily mirabegron 50 mg oral tablet, extended release 50 mg = 1 tab(s), Oral, Daily, LYNSEY, # 30 tab(s), Refills(s) 11, LYNSEY, Pharmacy: [facility]/pharmacy #[id number], 180, cm, 06/08/24 11:16:00 EST, Height/Length Dosing, 82, kg, 06/08/24 11:16:00 EST, Weight Dosing Start Date: 06/08/24 Status: Ordered Start: 10-23-2023 take 1 tablet by mary anne once daily Myrbetriq 50 mg oral tablet, extended release 50 mg = 1 tab(s), Oral, Daily, # 30 tab(s), Refills(s) 11, Pharmacy: [id number], 180, cm, 07/01/23 11:36:00 EST, Height/Length Dosing, 82, kg, 07/01/23 11:36:00 EST, Weight Dosing Start Date: 10/23/23 Status: Ordered 24 hr oxybutynin chloride 10 mg extended release oral tablet (1 source) Cholinergic Muscarinic Antagonist Start: 01-28-2022 take 1 tablet by mouth once daily oxybutynin 10 mg ER Tab 10 mg = 1 tab(s), Oral, Daily, # 90 tab(s), Refills(s) 3, Pharmacy: [facility]/pharmacy #[id number], 180, cm, 12/22/20 11:38:00 EDT, Height/Length Dosing, 99, kg, 12/22/20 11:38:00 EDT, Weight Dosing Start Date: 01/28/22 Status: Ordered Vitamin D (3 sources) Start: 08-29-2019 Vitamin D Oral , Refills(s) 0 Start Date: 08/29/19 Status: Ordered Vitamin D3 1000 intl units (25 mcg) Tab (1 source) Start: 12-20-2024 take 1 tablet by mouth once daily Vitamin D3 1000 intl units (25 mcg) Tab 25 mcg = 1 tab(s), Oral, Daily, Refills(s) 0 Start Date: 12/20/24 Status: Ordered Repeat number: 1 Vitamin E (3 sources) Start: 08-29-2019 vitamin E Oral , Daily, Refills(s) 0 Start Date: 08/29/19 Status: Ordered Problems Problem Classification Problem Date Documented Da te Episodic/Chronic Abdominal hernia (1 source) Hiatal hernia 12-20-2024 Episodic Anxiety disorders (7 sources) Anxiety disorder 08-29-2019 Chronic Calculus of urinary tract (9 sources) Kidney stone; Translations: [Calculus of kidney] Onset: 4 Episodic Diabetes mellitus with complications (2 sources) Type 2 diabetes mellitus with diabetic neuropathy, unspecified; Translations: [Neuropathy due to diabetes mellitus] Onset: 2 12-20-2024 Chronic Diabetes mellitus without complication (1 source) Diabetes mellitus 12-20-2024 Chronic Diabetes mellitus without complication (7 sources) Other abnormal glucose; Translations: [Glycosuria] Onset: 2 02-28-2023 Episodic Disorders of lipid metabolism (1 source) Hyperlipidemia, unspecified; Translations: [HYPERLIPIDEMIA UNSPECIFIED] Onset: 2 Chronic Esophageal disorders (2 sources) Gastroesophageal reflux disease; Translations: [Lower esophageal ring] 12-20-2024 Chronic Genitourinary symptoms and ill-defined conditions (15 sources) Urgency of urination; Translations: [Urgent desire to urinate] Onset: 2 Episodic Headache; including migraine (1 source) Migraine 12-20-2024 Chronic Heart valve disorders (7 sources) Heart murmur 08-29-2019 Episodic Hyperplasia of prostate (20 sources) Benign prostatic hyperplasia with lower urinary tract symptoms; Translations: [Benign prostatic hypertrophy with outflow obstruction] Onset: 2 Chronic Inflammatory conditions of male genital organs (14 sources) Epididymitis; Translations: [Prostatitis] 08-29-2019 Episodic Mood disorders (7 sources) Depressive disorder 08-29-2019 Chronic Nutritional deficiencies (2 sources) Vitamin D deficiency, unspecified; Translations: [Vitamin D deficiency] Onset: 2 12-20-2024 Chronic Open wounds of extremities (1 source) Laceration without foreign body of left thumb without damage to nail, initial encounter; Translations: [Laceration without foreign body of left thumb without damage to nail, initial encounter] Onset: 4 Episodic Other and unspecified benign neoplasm (1 source) History of polyp of colon 12-20-2024 Episodic Other and unspecified benign neoplasm (2 sources) Melanocytic nevus of trunk; Translations: [Melanocytic nevi of trunk] 01-22-2025 Episodic Other diseases of kidney and ureters (3 sources) Acquired renal cyst without neoplastic change; Translations: [Cyst of kidney, acquired] Onset: 4 Episodic Other diseases of kidney and ureters (6 sources) Cyst of kidney 02-28-2023 Episodic Other gastrointestinal disorders (1 source) Abnormal feces; Translations: [Other fecal abnormalities] Onset: 5 Episodic Other gastrointestinal disorders (2 sources) Occult blood in stools 12-20-2024 Episodic Other infections; including parasitic (1 source) History of Helicobacter pylori infection 12-20-2024 Episodic Other nutritional; endocrine; and metabolic disorders (1 source) Body mass index 30+ - obesity 01-15-2025 Chronic Other nutritional; endocrine; and metabolic disorders (1 source) Obesity caused by energy imbalance 12-20-2024 Chronic Other screening for suspected conditions (not mental disorders or infectious disease) (12 sources) Encounter for screening for malignant neoplasm of prostate; Translations: [Raised prostate specific antigen] Onset: 2 08-29-2019 Episodic Other skin disorders (2 sources) Seborrheic keratosis; Translations: [Other seborrheic keratosis] 01-22-2025 Episodic Other skin disorders (2 sources) Skin tag; Translations: [Other hypertrophic disorders of the skin] 01-22-2025 Episodic Residual codes; unclassified (6 sources) H/O: anticoagulant therapy 12-21-2019 Episodic Urinary tract infections (7 sources) Chronic cystitis 08-29-2019 Chronic Results Test Name Value Interpretation Reference Range Facility Ambulatory Visit Summaryon 0 01-15-2025 Ambulatory Visit Summary Ambulatory Visit Summary RAMA CHIN :1955 Visit Date:01/15/2025 Ambulatory Visit Instructions Your Diagnosis Positive fecal occult blood test Your Care Team Attending Physician - NIKHIL SORTO, Zeferino Ontiveros Primary Care Physician - Chinedu SORTO, Anu Referring Physician - Anu Che MD This Is Your Medications List Contact prescribing physician if questions or concerns cetirizine (cetirizine 10 mg Tab) cholecalciferol (Vitamin D3 1000 intl units (25 mcg) Tab) esomeprazole (Nexium 20 mg Cap-DR) finasteride (finasteride [...] ultrasound guidance (08/28/2013), Cystoscopy (04/24/2013), Urodynamics (03/28/2013), Colonoscopy (2009), Tonsillectomy. Discharge Vitals Heart Rate (Peripheral) 72 Respiratory Rate 16 Blood Pressure 116/78 Height 175.2 cm Height 69 in Weight 95.8 kg Weight 211.203 lb BMI 31.21 What to do next Scheduled Follow-Up Appointments Tuesday2025 10:45 AM EST With: AVERY SORTO, Christ Ontiveros Where: [facility] [address] [address]- Medications What How Much When Instructions Unchanged cetirizine (cetirizine 10 mg Tab) 1 Tablets By Mouth Every day Contact prescribing physician if questions or concerns Unchanged cholecalciferol (Vitamin D3 1000 intl units (25 mcg) Tab) 1 Tablets By Mouth Every day Contact prescribing physician if questions or concerns Unchanged esomeprazole (Nexium 20 mg Cap-DR) 1 Capsules By Mouth Every day Contact prescribing physician if questions or concerns Unchanged finasteride (finasteride 5 mg Tab) 1 Tablets By Mouth Every day Duration: 90 Days Contact prescribing physician if questions or concerns [...] Contact prescribing physician if questions or concerns Allergies No Known Allergies No Known Medication Allergies Problems Ongoing - Any problem that you are currently receiving treatment for. Anxiety disorder BMI 31.0-31.9,adult BPH (benign prostatic hyperplasia) BPH with urinary obstruction Chronic cystitis Depression Diabetes Elevated PSA Epididymitis GERD (gastroesophageal reflux disease) Glucosuria Heart murmur Hiatal hernia History of colon polyps History of Helicobacter pylori infection Incomplete bladder emptying Kidney stone Migraines Neuropathy in diabetes Obesity due to excess calories Occult blood positive stool Positive fecal occult blood test Prostatitis Renal cyst Schatzki's ring Vitamin D deficiency Patient Survey You may receive a survey via text or e-mail asking about your office visit. Please share your experience with us by completing your survey. We appreciate your feedback and thank you for choosing us for your care. Patient Portal You may access all of your results and other medical record information on our secure patient portal. If you are not signed up for this yet, please contact [employer] at [phone] to get signed up today. Language Information Language assistance services are available as needed. Normal [facility] Ambulatory Visit Summaryon 0 12-10-2024 Ambulatory Visit Summary Ambulatory Visit Summary RAMA CHIN :1955 Visit Date:12/10/2024 Ambulatory Visit Instructions Your Diagnosis Urgency of urination Incomplete bladder emptying BPH (benign prostatic hyperplasia) Elevated PSA Your Care Team Attending Physician - AVERY SORTO, Christ Ontiveros Primary Care Physician - Chinedu SORTO, Anu This Is Your Medications List finasteride (finasteride 5 mg Tab) Contact prescribing physician if questions or concerns cetirizine (Zyrtec Dissolve 10 mg oral tablet, dispersible) esomeprazole (Nexium 20 mg Cap-DR) glimepiride (glimepiride 2 mg Tab) lovastatin metformin [...] Christ OSULLIVAN MD Where: [facility] [address] [place] [address]- You Need to Schedule the Following Appointments Follow Up with Christ OSULLIVAN MD, URL When: Where: [facility] [address], [place] [address]- You Need to Complete the Following PSA Free & Total, Blood, Routine collect, 05/23/25, Order for future visit, Lab Collect, Elevated PSA BPH (benign prostatic hyperplasia), Required & Missing, Print Label By Order Location Medications What How Much When Instructions Changed finasteride (finasteride 5 mg Tab) 1 Tablets By Mouth Every day Duration: 90 Days Pickup at [facility]/pharmacy #[id number] Unchanged cetirizine (Zyrtec Dissolve 10 mg oral [...] physician if questions or concerns Pharmacy Information [facility]/pharmacy #[id number]: [address], [place] [phone] Allergies Hismanal (Heart rate fast) Problems Ongoing - Any problem that you are currently receiving treatment for. Anxiety disorder BPH (benign prostatic hyperplasia) BPH with urinary obstruction Chronic cystitis Depression Elevated PSA Epididymitis Glucosuria Heart murmur Hx of assisted use of blood thinners Incomplete bladder emptying [...] condition include: ??? (more content not included)... Normal [facility] Urology Office/Clinic Noteon 12-10-2024 Urology Office/Clinic Note [...] qd. Cont wo changes. Refill sent to [facility]. 4. Elevated PSA (R97.20: Elevated prostate specific antigen [PSA]) PSA 12/19/20 - 1.36 (2.72) 12/23/21 - 1.87 (3.74) 02/26/23 - 1.46 (2.92) 06/06/24 - 1.34 (2.68) Reports he has a strong family history of prostate cancer. S/p TRUS/bx 07/06/16, 03/05/14, and 08/28/13. -PSA due May 2025 Follow-up With When Contact Information AVERY SORTO, Christ Ontiveros, URL [facility] [address], [place] [address]- Additional Instructions: 6 mos with PSA F&T Patient Education Benign Prostatic Hyperplasia I, Suni Dias, personally scribed for Dr. Osullivan on 12/10/2024 15:50:04. . Problem List/Past Medical History Ongoing Anxiety disorder BPH (benign prostatic hyperplasia) BPH with urinary obstruction Chronic cystitis Depression Elevated PSA Epididymitis Glucosuria Heart murmur Hx of intermodal customer service use of blood thinners Incomplete bladder emptying [...] Recorded influe (more content not included)... Normal [facility] Comment on above: Result Comment: Elec tronically Signed By: Christ OSULLIVAN MD\.br\Date and Time Signed: 12/10/24 17:23 EDT\.br\Electronically Co-Signed By: Suni Dias\.br\Date and Time Co-Signed: 12/10/24 15:50 EDT Ambulatory Visit Summaryon 0 10-29-2024 Ambulatory Visit Summary Ambulatory Visit Summary RAMA CHIN :1955 Visit Date:10/29/2024 Ambulatory Visit Instructions Your [...] SORTO, Christ Ontiveros Where: [facility] [place] [id number] Medications What How Much When Instructions Unchanged [...] PSA Epididymitis Glucosuria Heart murmur Hx of assisted use of blood thinners Kidney stone Prostatitis Renal cyst Urgency of urination Patient Survey You may receive a survey via text or e-mail asking about your office visit. Please share your experience with us by completing your survey. We appreciate your feedback and thank you for choosing us for your care. Christiano Dewitt [facility] Urology Office/Clinic Noteon 10-29-2024 Urology Office/Clinic Note [...] lb BMI: 25.31 General: nontoxic, NAD Assessment/Plan TALIB 11/12/22 [facility] - 0.5 cm R renal stone. [2] Declined updated imaging at last visit. [1] TALIB 11/12/22 [facility] - left renal cyst 2.3 [...] E&M of Est. Patient Moderate 30-39 Min 26096 2. Incomplete emptying of bladder (R33.9: Retention of urine, unspecified) Unclear if this is chronic or recent d/t the Trospium. Repeat PVR next ov off anticholinergic. See #1. Ordered: 93062 Measure Post Void residual urine and/or bladder capacity by US- non-imaging E&M of Est. Patient Moderate 30-39 Min 81067 3. BPH (benign prostatic hyperplasia) (N40.0: Benign prostatic hyperplasia without lower urinary tract symptoms) S/p TURP 2015 Taking Finasteride 5mg qd. Split stream at the end. Has made some dietary modifications to avoid nocturia. -Cont Finasteride 5mg qd Ordered: E&M of Est. Patient Moderate 30-39 Min 61868 4. Elevated PSA (R97.20: Elevated prostate specific antigen [PSA]) PSA 12/19/20 - 1.36 (2.72) 12/23/21 - 1.87 (3.74) 02/26/23 - 1.46 (2.92) 06/06/24 - 1.34 (2.68) Reports he has a strong family history of prostate cancer. S/p TRUS/bx 07/06/16, 03/05/14, and 08/28/13. [1] -PSA due May 2025 Ordered: E&M of Est. Patient Moderate 30-39 Min 56612 Orders: mirabegron, 50 mg = 1 tab(s), Oral, Daily, # 30 tab(s), Refills(s) , LYNSEY, Pharmacy: [facility]/pharmacy #[id number], 180, cm, 06/08/24 11:16:00 EST, Height/Length Dosing, 82, kg, 06/08/24 11:16:00 EST, Weight Dosing Follow-up With When Contact Information Keep previously scheduled follow-up appointment. Additional Instructions: Patient Education Benign Prostatic Hyperplasia Problem List/Past Medical History Ongoing Anxiety disorder BPH (benign prostatic hyperplasia) BPH with urinary obstruction Chronic cystitis Depression Elevated PSA Epididymitis Glucosuria Heart murmur Hx of intermodal customer service use of blood thinners Kidney stone Prostatitis [...] SORTO, Christ Ontiveros 06/08/2024 12:22 EST Normal [facility] Comment on above: Result Comment: Elec tronically Signed By: MIMI NGUYEN PA-C\.marysol\Date and Time Signed: 10/29/24 14:16 EDT Urology [...] Renal cyst (N28.1: Cyst of kidney, acquired) TALIB 11/12/22 [facility] - left renal cyst 2.3 x 2.2 x 1.9 cm. MRI abd 11/19/22 [facility] - small bilateral, benign-appearing renal cysts. -Simple cysts do not require surveillance [3] Follow-up With When Contact Information Christ OSULLIVAN MD, URL [address] [id number]- Additional Instructions: 6 months w/ PVR (no labs) Patient Education Benign Prostatic Hyperplasia I, Ирина Hines, personally scribed for Dr. Osullivan on 06/08/2024 12:22:54. . Documentation recorded by the scribeИрина, accurately reflects the services(s) I performed and decisions made by me. Authenticated by Dr. Osullivan on 06/08/2024 12:26:35. Problem List/Past Medical History Ongoing Anxiety disorder BPH (benign prostatic hyperplasia) BPH with urinary obstruction Chronic cystitis (more content not included)... Normal [facility] Comment on above: Result Comment: Elec tronically Signed By: Christ OSULLIVAN MD\.br\Date and Time Signed: 06/08/24 12:26 EST\.br\Electronically Co-Signed By: Ирина Hines\.br\Date and Time Co-Signed: 06/08/24 12:25 EST INSULINon 12-24-2021 Insulin 7.7 uIU/mL Normal 2.6-24.9 [facility] Comment on above: Performed By: #### I NSULIN #### [facility] [address] [place] [address] Dr. Max Pyle CBC AUTO DIFFon 12-23-2021 BASO # 0.1 103/ul Normal 0.0-0.1 [facility] Comment on above: Performed By: #### C BC #### [facility] [address] [place] [address] Dr. Max Pyle Basophils/100 WBC (Bld) 0.7 % Normal 0.2-2.0 [facility] Comment on above: Performed By: #### C BC #### [facility] [address] [place] [address] Dr. Max Pyle EO # 0.2 103/ul Normal 0.0-0.7 [facility] Comment on above: Performed By: #### C BC #### [facility] [address] [place] [address] Dr. Max Pyle Eosinophils/100 WBC (Bld) 2.5 % Normal 0.9-7.0 [facility] Comment on above: Performed By: #### C BC #### [facility] [address] [place] [address] Dr. Max Pyle Erythrocyte distribution width (RBC) [Ratio] 12.9 % Normal 11.0-15.0 [facility] Comment on above: Performed By: #### C BC #### [facility] [address] [place] [address] Dr. Max Pyle Hematocrit (Bld) [Volume fraction] 42.3 % Normal 42.0-54.0 [facility] Comment on above: Performed By: #### C BC #### [facility] [address] [place] [address] Dr. Max Pyle Hemoglobin (Bld) [Mass/Vol] 14.3 g/dL Normal 14.0-18.0 [facility] Comment on above: Performed By: #### C BC #### [facility] [address] [place] [address] Dr. Max Pyle IG # 0.02 10e3/ul Normal 0.00-0.03 [facility] Comment on above: Performed By: #### C BC #### [facility] [address] [place] [address] Dr. Max Pyle IG % 0.3 % Normal 0.0-0.5 [facility] Comment on above: Performed By: #### C BC #### [facility] [address] [place] [address] Dr. Max Pyle LYMPH # 2.0 103/ul Normal 1.2-3.8 [facility] Comment on above: Performed By: #### C BC #### [facility] [address] [place] [address] Dr. Max Pyle Lymphocytes/100 WBC (Bld) 25.9 % Normal 20.5-60.0 [facility] Comment on above: Performed By: #### C BC #### [facility] [address] [place] [address] Dr. Max Pyle MANUAL DIFF REQ NO Normal [facility] Comment on above: Performed By: #### C BC #### [facility] [address] [place] [address] Dr. Max Pyle MCH (RBC) [Entitic mass] 29.7 pg Normal 25.9-34.0 [facility] Comment on above: Performed By: #### C BC #### [facility] [address] [place] [address] Dr. Max Pyle MCHC (RBC) [Mass/Vol] 33.8 g/dL Normal 29.9-35.2 [facility] Comment on above: Performed By: #### C BC #### [facility] [address] [place] [address] Dr. Max Pyle MCV (RBC) [Entitic vol] 87.9 fL Normal 80.0-94.0 [facility] Comment on above: Performed By: #### C BC #### [facility] [address] [place] [address] Dr. Max Pyle MONO # 0.4 103/ul Normal 0.3-0.8 [facility] Comment on above: Performed By: #### C BC #### [facility] [address] [place] [address] Dr. Max Pyle Monocytes/100 WBC (Bld) 5.3 % Normal 1.7-12.0 [facility] Comment on above: Performed By: #### C BC #### [facility] [address] [place] [address] Dr. Max Pyle NEUT # 5.0 103/ul Normal 1.4-6.5 [facility] Comment on above: Performed By: #### C BC #### [facility] [address] [place] [address] Dr. Max Pyle Neutrophils/100 WBC (Bld) 65.3 % Normal 43.0-75.0 [facility] Comment on above: Performed By: #### C BC #### [facility] [address] [place] [address] Dr. Max Pyle Platelet mean volume (Bld) [Entitic vol] 9.9 fL Normal 9.5-13.5 [facility] Comment on above: Performed By: #### C BC #### [facility] [address] [place] [address] Dr. Max Pyle PLT 225 103/ul Normal 150-450 [facility] Comment on above: Performed By: #### C BC #### [facility] [address] [place] [address] Dr. Max Pyle RBC 4.81 106/ul Normal 4.70-6.10 [facility] Comment on above: Performed By: #### C BC #### [facility] [address] [place] [address] Dr. Max Pyle WBC 7.7 103/ul Normal 4.0-11.0 [facility] Comment on above: Performed By: #### C BC #### [facility] [address] [place] [address] Dr. Max Pyle FREE THYROXINE INDEX T7on FTI 2.79 Normal 1.30-4.50 [facility] Comment on above: Performed By: #### C MP, LIPID, T7, TSH, URIC #### [facility] [address] [place] [address] Dr. Max Pyle T3U 34.0 % Normal 33.0-40.0 [facility] Comment on above: Performed By: #### C MP, LIPID, T7, TSH, URIC #### [facility] [address] [place] [address] Dr. Max Pyle T4 [Mass/Vol] 8.20 ug/dL Normal 4.50-12.10 [facility] Comment on above: Performed By: #### C MP, LIPID, T7, TSH, URIC #### [facility] [address] [place] [address] Dr. Max Pyle GLYCOHEMOGLOBIN A1Con 2021 ADA RECOMMENDATION SEE BELOW Normal [facility] Comment on above: Result Comment: ADA RECOMMENDED LIMIT 4.0 - 6.0 ADA THERAPEUTIC TARGET < 7.0 ACTION SUGGESTED > 7.0 Performed By: #### A 1C #### [facility] [address] [address] [address] Max Pyle Glucose [Mass/Vol] 134 mg/dL Normal [facility] Comment on above: Performed By: #### A 1C #### [facility] [address] [place] [address] Dr. Max Pyle HbA1c (Bld) [Mass fraction] 6.3 % Critically high 4.5-6.2 [facility] Comment on above: Performed By: #### A 1C #### [facility] [address] [place] [address] Dr. Max Pyle LIPID PROFILEon 12-23-2021 CHOL-HDL RATIO NORM SEE BELOW Normal [facility] Comment on above: Result Comment: 3.3 - 4.4 LOW RISK 4.4 - 7.1 AVERAGE RISK 7.1 - 11.0 MODERATE RISK >11.0 HIGH RISK Performed By: #### C MP, LIPID, T7, TSH, URIC #### [facility] [address] [place] [address] Dr. Max Pyle Cholesterol [Mass/Vol] 193 mg/dL Normal <=200 [facility] Comment on above: Performed By: #### C MP, LIPID, T7, TSH, URIC #### [facility] [address] [address] [address] Max Pyle Cholesterol in HDL [Mass/Vol] 56 mg/dL Normal 40-60 [facility] Comment on above: Performed By: #### C MP, LIPID, T7, TSH, URIC #### [facility] [address] [address] [address] Max Pyle Cholesterol in LDL [Mass/Vol] 103.6 mg/dL Normal [facility] Comment on above: Performed By: #### C MP, LIPID, T7, TSH, URIC #### [facility] [address] [place] [address] Dr. Max Pyle Cholesterol.total/Cho lesterol in HDL [Mass ratio] 3.4 {ratio} Normal [facility] Comment on above: Performed By: #### C MP, LIPID, T7, TSH, URIC #### [facility] [address] [address] [address] Max Pyle HDL NORMAL > or = 60 mg/dl - LO W CARDIOVASCULAR RISK <40 mg/dl - HIGH CARDIOVASCULAR RISK Normal [facility] Comment on above: Performed By: #### C MP, LIPID, T7, TSH, URIC #### [facility] [address] [address] [address] Max Pyle LDL CALC NORMAL SEE BELOW Normal [facility] Comment on above: Result Comment: <100 mg/dl OPTIMAL 100 - 129 mg/dl NEAR OR ABOVE OPTIMAL 130 - 159 mg/dl BORDERLINE HIGH 160 - 189 mg/dl HIGH >190 mg/dl VERY HIGH Performed By: #### C MP, LIPID, T7, TSH, URIC #### [facility] [address] [address] [address] Max Pyle Triglyceride [Mass/Vol] 167 mg/dL Critically high <=150 [facility] Comment on above: Performed By: #### C MP, LIPID, T7, TSH, URIC #### [facility] [address] [address] [address] Max Pyle VLDL CALC 33.4 mg/dL Normal [facility] Comment on above: Performed By: #### C MP, LIPID, T7, TSH, URIC #### [facility] [address] [address] [address] Max Pyle PROF 14(COMP METB)on 022 Albumin [Mass/Vol] 4.2 g/dL Normal 3.4-5.0 [facility] Comment on above: Performed By: #### C MP, LIPID, T7, TSH, URIC #### [facility] [address] [address] [address] Max Pyle Albumin/Globulin [Mass ratio] 1.4 {ratio} Normal [facility] Comment on above: Performed By: #### C MP, LIPID, T7, TSH, URIC #### [facility] [address] [place] [address] Dr. Max Pyle ALP [Catalytic activity/Vol] 78 U/L Normal 46-116 [facility] Comment on above: Performed By: #### C MP, LIPID, T7, TSH, URIC #### [facility] [address] [place] [address] Dr. Max Pyle ALT [Catalytic activity/Vol] 29 U/L Normal 16-63 [facility] Comment on above: Performed By: #### C MP, LIPID, T7, TSH, URIC #### [facility] [address] [place] [address] Dr. Max Pyle Anion gap [Moles/Vol] 13.8 mmol/L Normal [facility] Comment on above: Performed By: #### C MP, LIPID, T7, TSH, URIC #### [facility] [address] [place] [address] Dr. Max Pyle AST [Catalytic activity/Vol] 15 U/L Normal 15-37 [facility] Comment on above: Performed By: #### C MP, LIPID, T7, TSH, URIC #### [facility] [address] [place] [address] Dr. Max Pyle Bilirubin [Mass/Vol] 0.7 mg/dL Normal 0.2-1.0 [facility] Comment on above: Performed By: #### C MP, LIPID, T7, TSH, URIC #### [facility] [address] [place] [address] Dr. Max Pyle Calcium [Mass/Vol] 9.0 mg/dL Normal 8.5-10.1 [facility] Comment on above: Performed By: #### C MP, LIPID, T7, TSH, URIC #### [facility] [address] [place] [address] Dr. Max Pyle Chloride [Moles/Vol] 106 mmol/L Normal 98-107 [facility] Comment on above: Performed By: #### C MP, LIPID, T7, TSH, URIC #### [facility] [address] [place] [address] Dr. Max Pyle CO2 [Moles/Vol] 27.9 mmol/L Normal 21.0-32.0 [facility] Comment on above: Performed By: #### C MP, LIPID, T7, TSH, URIC #### [facility] [address] [address] [address] Max Pyle Creatinine [Mass/Vol] 1.02 mg/dL Normal 0.70-1.30 [facility] Comment on above: Performed By: #### C MP, LIPID, T7, TSH, URIC #### [facility] [address] [address] [address] Max Pyle EGFR-AF MAURITIAN >60 Normal >=60 [facility] Comment on above: Performed By: #### C MP, LIPID, T7, TSH, URIC #### [facility] [address] [place] [address] Dr. Max Pyle EGFR-NON AF MAURITIAN >60 Normal >=60 [facility] Comment on above: Performed By: #### C MP, LIPID, T7, TSH, URIC #### [facility] [address] [place] [address] Dr. Max Pyle Globulin (S) [Mass/Vol] 3.1 g/dL Normal [facility] Comment on above: Performed By: #### C MP, LIPID, T7, TSH, URIC #### [facility] [address] [place] [address] Dr. Max Pyle Glucose [Mass/Vol] 106 mg/dL Normal 74-106 [facility] Comment on above: Performed By: #### C MP, LIPID, T7, TSH, URIC #### [facility] [address] [address] [address] Max Pyle Potassium [Moles/Vol] 3.7 mmol/L Normal 3.5-5.1 [facility] Comment on above: Performed By: #### C MP, LIPID, T7, TSH, URIC #### [facility] [address] [place] [address] Dr. Max Pyle Protein [Mass/Vol] 7.3 g/dL Normal 6.4-8.2 [facility] Comment on above: Performed By: #### C MP, LIPID, T7, TSH, URIC #### [facility] [address] [address] [address] Max Pyle Sodium [Moles/Vol] 144 mmol/L Normal 136-145 [facility] Comment on above: Performed By: #### C MP, LIPID, T7, TSH, URIC #### [facility] [address] [address] [address] Max Pyle Urea nitrogen [Mass/Vol] 13.0 mg/dL Normal 7.0-18.0 [facility] Comment on above: Performed By: #### C MP, LIPID, T7, TSH, URIC #### [facility] [address] [place] [address] Dr. Max Pyle Urea nitrogen/Creatinine [Mass ratio] 12.7 mg/mg Normal [facility] Comment on above: Performed By: #### C MP, LIPID, T7, TSH, URIC #### [facility] [address] [place] [address] Dr. Max Pyle TSHon 12-23-2021 TSH 1.072 uIU/mL Normal 0.358-3.740 [facility] Comment on above: Performed By: #### C MP, LIPID, T7, TSH, URIC #### [facility] [address] [place] [address] Dr. Max Pyle URIC ACID SERUMon 12-23-2021 Urate [Mass/Vol] 6.4 mg/dL Normal 3.5-7.2 [facility] Comment on above: Performed By: #### C MP, LIPID, T7, TSH, URIC #### [facility] [address] [place] [address] Dr. Max Pyle Vital Signs Date Time Vital Sign Value Performing Clinician Faci mary 06-08-2024 11:13-0500 Diastolic blood pressure 63 mm[Hg] Christ OSULLIVAN [facility] 06-08-2024 11:13-0500 Heart rate 72 /min Christ OSULLIVAN [facility] 06-08-2024 11:13-0500 Respiratory rate 16 /min Christ OSULLIVAN [facility] 06-08-2024 11:13-0500 Systolic blood pressure 109 mm[Hg] Christ OSULLIVAN [facility] 12-06-2023 12:32-0400 Blood Pressure Location MIMI WENDY [facility] 12-06-2023 12:32-0400 Diastolic blood pressure 74 mm[Hg] MIMI WENDY [facility] 12-06-2023 12:32-0400 Heart rate 80 /min MIMI WENDY [facility] 12-06-2023 12:32-0400 Respiratory rate 16 /min MIMI WENDY [facility] 12-06-2023 12:32-0400 Systolic blood pressure 132 mm[Hg] MIMI WENDY [facility] 07-01-2023 11:34-0500 Blood Pressure Location Christ OSULLIVAN [facility] 07-01-2023 11:34-0500 Diastolic blood pressure 72 mm[Hg] Christ OSULLIVAN [facility] 07-01-2023 11:34-0500 Heart rate 80 /min Christ OSULLIVAN [facility] 07-01-2023 11:34-0500 Respiratory rate 16 /min Christ OSULLIVAN [facility] 07-01-2023 11:34-0500 Systolic blood pressure 135 mm[Hg] Christ OSULLIVAN [facility] 03-01-2022 11:25-0400 Blood Pressure Location Christ OSULLIVAN [facility] 03-01-2022 11:25-0400 Diastolic blood pressure 81 mm[Hg] Christ OSULLIVAN [facility] 03-01-2022 11:25-0400 Heart rate 78 /min Christ OSULLIVAN [facility] 03-01-2022 11:25-0400 Respiratory rate 16 /min Christ OSULLIVAN [facility] 03-01-2022 11:25-0400 Systolic blood pressure 138 mm[Hg] Christ OSULLIVAN [facility] Encounters Encounter Date Encounter Type Care Provider Facility Start: 01-22-2025 End: 01-22-2025 Bamboo flowsjoe VERDE [facility] Start: 01-22-2025 End: 01-22-2025 Bamboo flowsheet Gennaro Meza PA [facility] Start: 01-22-2025 End: 01-22-2025 Office outpatient new 30 minutes [facility]ennaro VERDE [facility] Comment on above: Melanocytic nevus of trunk (Primary Dx); Seborrheic keratosis; Skin tag Start: 01-22-2025 End: 01-22-2025 ambulatory GENNARO MEZA Not Available Start: 01-15-2025 End: 01-15-2025 ambulatory Anu Hoy Facility:[facility] Start: 01-15-2025 End: 01-15-2025 Patient encounter procedure Zeferino Rama NIKHIL [facility] Start: 12-18-2024 ambulatory [facility] Start: 12-10-2024 End: 12-10-2024 [facility]ulatory [facility] Start: 12-10-2024 End: 12-10-2024 Patient encounter procedure Christ OSULLIVAN [facility] Start: 10-29-2024 End: 10-29-2024 ambulatory [facility]GUYEN [facility] Start: 10-29-2024 End: 10-29-2024 Patient encounter procedure [facility] Start: 06-08-2024 End: 06-08-2024 [facility]ulatory [facility] Start: 06-08-2024 End: 06-08-2024 Patient encounter procedure [facility] Start: 12-06-2023 End: 12-06-2023 Patient encounter procedure [facility] Start: 11-08-2023 End: 11-08-2023 Emergency department patient visit Julienne Burgos [facility] Start: 07-01-2023 End: 07-01-2023 Patient encounter procedure Christ OSULLIVAN [facility] Start: 03-01-2022 End: 03-01-2022 Patient encounter procedure Christ OSULLIVAN [facility] Start: 12-23-2021 End: 12-24-[address] ANU CHE Facility:[facility] Procedures Date Procedure Procedure Detail Performing Clinician Start: 12-23-[address] CARROLL OSULILVAN Comment on above: Performed By: #### P SAD #### [facility] [address] [place] [address] Dr. Max Pyle Start: 07-06-2016 Transrectal biopsy o f prostate using ultrasound guidance Christ OSULLIVAN Start: 07-06-2016 Ultrasonography guid ed transrectal cryoablation of prostate hCrist OSULLIVAN Start: 07-31-2015 Cystoscopy Christ GUERRA Start: 07-31-2015 Transurethral prostatectomy Christ OSULLIVAN Start: 06-13-2015 Urodynamic studies Patr icjerald OSULLIVAN Start: 03-05-2014 Transrectal biopsy o f prostate using ultrasound guidance Christ OSULLIVAN Start: 03-05-2014 Ultrasonography guid ed transrectal cryoablation of prostate Christ OSULLIVAN Start: 08-28-2013 Transrectal biopsy o f prostate using ultrasound guidance Christ OSULLIVAN Start: 08-28-2013 Ultrasonography guid ed transrectal cryoablation of prostate Christ OSULLIVAN Start: 04-24-2013 Cystoscopy Christ GUERRA Start: 03-28-2013 Urodynamic studies Connier icjerald OSULLIVAN Start: 05-23-2009 Colonoscopy Zeferino JENSEN Tonsillectomy Christ OSULLIVAN Plan of Treatment Date Care Activity Detail Author Start: 01-22-2026 End: 01-22-2026 Patient encounter procedure 01/22/2026 12:30 PM EDT [facility] [address] [place] [address] Gennaro Meza PA [address] [place] [address] [facility] Start: 06-14-2025 ambulatory Ambulatory Facility:[facility] [place] [facility] Start: 01-22-2025 End: 01-22-2025 Patient encounter procedure 01/22/2025 10:50 AM EDT Office [facility] [address] [place] [id number] eGnnaro Meza PA [address] [place] [address] Arrived [facility] Comment on above: Arrived Immunizations Immunization Date Immunization Notes Care Provider Fa avera [facility] 06-04-2020 influenza virus vaccine, unspecified formulation Christ OSULLIVAN [facility] 03-17-2017 influenza, unspecifi ed formulation Christ OSULLIVAN [facility] 03-25-2016 influenza, unspecifi ed formulation Christ OSULLIVAN [facility] 04-30-2014 influenza virus vaccine, unspecified formulation Christ OSULLIVAN [facility] 04-30-2014 zoster vaccine, live Christ OSULLIVAN [facility] Payers Date Payer Category Payer Unknown [id number] 2024 Unknown [id number] 2023 Unknown [id number] 2019 Medicare [id number] 2019 Private Health Insurance [id number] [id number] 2019 Unknown [id number] 1959 Medicare [id number] 1959 Unknown [id number] 1953 Unknown [id number] 2.16.84 [id number] 1953 Unknown [id number] 2.16.84 [id number] 1953 Unknown [id number] 2.16.8 [id number] 1953 Unknown [id number] 2.16.8 [id number] 1953 Unknown [id number] 2.16.8 [id number] 1953 Unknown [id number] 2.16.8 [id number] 1953 Unknown [id number] 2.16.8 [id number] 1953 Unknown [id number] 2.16.8 [id number] 1953 Unknown [id number] 2.16.8 [id number] Social History Date Type Detail Facility Start: 03-01-2022 End: 01-22-2025 Tobacco smoking status Never smoked tobacco (finding) [facility] Start: 01-22-2025 Sex Assigned At Male [facility] Tobacco smoking status Never [facility] Sexual Orientation [facility] Start: 10-02-2019 Sex Male (finding) [facility] Tobacco smoking stat [facility] Tobacco smoking consumption unknown [facility] Start: 1955 Sex assigned at Not on file [facility] Start: 01-22-2025 Tobacco use and exposure Smokeless tobacco non-user [facility] Start: 01-22-2025 History of Social function [facility] Medical Equipment Procedure Code Equipment Code Equipment Origin al Text Equipment Identifier Dates USE 1 LANCET TO POKE FINGER TO MONITOR GLUCOSE ONCE DAILY DX [id number] DAYS Start: 10-04-2024 Functional Status Date Assessment Result Facility 06-08-2024 Functional Status N/A [facility] 12-06-2023 Functional Status N/A [facility] 07-01-2023 Functional Status N/A [facility] 03-01-2022 Functional Status N/A [facility] Clinical Notes 03-01-2022 to 01-22-2025 MEHREEN Miranda - 01/22/2025 10:50 AM EDTLaboratory Note Date & Type Note Facility 01-22-2025 History of Present illness Narrative Skin Check Location: Patient requests a skin examination from the waist up Dermatologic history: no history of skin cancer, no history of atypical moles Lesion #1 Location: back and flanks Duration: years Quality: itchy Associated symptoms: rough, raised Treatments: none Lesion #2 Location: scalp Duration: years Quality: itchy Modifying factors: aggravated by picking Associated symptoms: rough, raised Treatments: none New patient. All pertinent medical history, medications, and allergies were reviewed. General Exam: alert, oriented to person, place, and time, normal affect, well appearing A complete skin exam was offered, pt declined. Areas not examined despite medical recommendation: From the waist down Scalp, Examined Head, Face Examined Neck Examined Chest Examined Back Examined Abdomen Examined Right arm Examined Left arm Examined Hands Examined Digits,nails: Examined Lymphatics: Not examined Skin Exam 1. MELANOCYTIC NEVUS OF TRUNK Generalized Scattered benign appearing, regular brown to light brown melanocytic papules and macules with similar morphology Counseled regarding these benign growths. Rarely, a nevus can develop into malignant melanoma, so any changing nevi should be promptly re-evaluated. 2. SEBORRHEIC KERATOSIS (3) Abdomen (Lower Torso, Anterior), Generalized, Torso - Posterior (Back) Stuck on verrucous, variably pigmented papules and plaques. Patient was counseled regarding these benign growths. Removal is normally not necessary, but they may be removed if they are symptomatic or for cosmetic reasons. 3. SKIN TAG Left Axilla Fleshy, skin-colored sessile and pedunculated papules. The patient was informed that skin tags are benign growths usually found around the neck or in the axillae. No treatment is necessary, but at times they can get caught on jewelry or clothing or become inflamed. Skin tags can be removed with scissors or liquid nitrogen. Next Visit: 1 year documented in this encounter [facility] 01-15-2025 Note General Surgery Offi ce/Clinic Note Chief Complaint consultation for positive occult stool HPI Staff 70 year old male presents on consultation from Dr. Che for positive occult stool. Denies abdominal or rectal pain. No rectal bleeding or change in bowel habits. Denies nausea, vomiting or weight loss. Last colonoscopy completed 07/2009 with sigmoid tubular adenoma. Family history of colon cancer in brother, age 60's. History of Present Illness 70 yo male with h/o DMII, neuropathy, hiatal hernia with GERD, BPH, , nephrolithiasis, H pylori infection, migraines; referred for positive fecal occult blood test; last colonoscopy 2009 with removal of 1.2 cm sigmoid tubular adenoma; patient was suppose to have a surveillance colonoscopy 3 years later, was not done;denies change in bms or blood in stools, no abd complaints; no Abd operations; no asa or NSAID use; no tobacco use; fmhx of colon cancer in patient's brother, dx in his 60's; no fmhx of IBD. Review of Systems PHQ Score Initial Depression Screen Score: 0 SCORE ROS - Provider Constitutional: no fever, no sweats, no weight loss. Eyes: yes glasses, no blurred vision, no visual loss. ENMT: no dentures, no hoarseness, no swallowing difficulties, no hearing loss, no ear infection(s), no nose bleeds. Cardiovascular: normal blood pressure, no chest pain, regular heartbeat, no heart murmur. Respiratory: no shortness of breath, no cough, no asthma, no wheezing. Gastrointestinal: no nausea, no vomiting, no diarrhea, no constipation, no blood in stool, no change in bowel habits, no abdominal pain, no hepatitis. Genitourinary: no kidney stones, no urine infection, no dysuria. Musculoskeletal: no pain, no weakness. Skin: no changing moles, no rash, no skin lumps. Neurologic: no seizures, no epilepsy, no headache. Psychiatric: no emotional or psychiatric problem. Heme/Lymph: no bleeding problems, no anemia, no blood clots, no transfusions. Allergy/Immunologic: no swollen lymph nodes/glands, no IV drug abuse. Other: Additional ROS info: Except as noted in the above Review of Systems and in the History of Present Illness, all other systems have been reviewed and are negative or noncontributory. Physical Exam Vitals & Measurements HR: 72(Peripheral) RR: 16 BP: 116/78 HT: 175.2 cm HT: 69 in WT: 95.8 kg WT: 211.203 lb BMI: 31.21 HEENT: normal conjunctiva, sclera clear, no scleral icterus, EOM intact, PERRLA, oral mucosa moist without lesions. Neck: trachea midline, no mass, symmetric, no thyromegaly or nodules, no adenopathy Respiratory: lungs CTA, respirations non labored. Cardiovascular: regular rate and rhythm, no murmur, no pedal edema or varicosities. Gastrointestinal: soft, non distended, no tenderness, no masses, no palpable hernias, diastasis recti no, no hepatosplenomegaly; normal bs Musculoskeletal: normal gait, digits and nails without infection, nodes, cyanosis, clubbing. Skin: no rashes, no lesions, no ulcers, no subcutaneous nodules, induration. Psychiatric/Neuro: oriented to time, place, person, judgement normal, affect appropriate for age, insight intact, no focal deficits. Tests: labs reviewed, , review of old records completed , Discussed surgical options, risks, and possible complications with patient. Assessment/Plan 1. Positive fecal occult blood test (R19.5: Other fecal abnormalities) plan colonoscopy under anesthesia, informed consent obtained. Follow-up No qualifying data available Problem List/Past Medical History Ongoing Anxiety disorder BMI 31.0-31.9,adult BPH (benign prostatic hyperplasia) BPH with urinary obstruction Chronic cystitis Depression Diabetes Elevated PSA Epididymitis GERD (gastroesophageal reflux disease) Glucosuria Heart murmur Hiatal hernia History of colon polyps History of Helicobacter pylori infection Incomplete bladder emptying Kidney stone Migraines Neuropathy in diabetes Obesity due to excess calories Occult blood positive stool Positive fecal occult blood test Prostatitis Renal cyst Schatzki's ring Vitamin D deficiency Historical No qualifying data Procedure/Surgical History Transrectal biopsy of prostate using ultrasound guidance (07/06/2016), Cystoscopy (07/31/2015), TURP - Transurethral resection of prostate (07/31/2015), Urodynamics (06/13/2015), Transrectal biopsy of prostate using ultrasound guidance (03/05/2014), Transrectal biopsy of prostate using ultrasound guidance (08/28/2013), Cystoscopy (04/24/2013), Urodynamics (03/28/2013), Colonoscopy (2009), Tonsillectomy. Medications Calcium, Magnesium and Zinc oral tablet, 1 tab(s), Oral, Daily cetirizine 10 mg Tab, 10 mg= 1 tab(s), Oral, Daily finasteride 5 mg Tab, 5 mg= 1 tab(s), Oral, Daily, 3 refills glimepiride 2 mg Tab lovastatin, 20 mg, Oral, Daily metformin 500 mg Tab, 500 mg= 1 tab(s), Oral, BID Nexium 20 mg Cap-DR, 20 mg= 1 cap(s), Oral, Daily Vitamin D3 1000 intl units (25 mcg) Tab, 25 mcg= 1 tab(s (more content not included)... [facility] Comment on above: Result Comment: Elec tronically Signed By: NIKHIL SORTO, Zeferino Kent\Date and Time Signed: 01/15/25 15:11 EDT 12-10-2024 Hospital Discharge instructions Patient Education 12/10/2024 [...] urethra. Follow these instructions at home: Take ircn-wgj-ojhemcv and prescription medicines only as told by [...] provider. Document Revised: 11/25/2021 Document Reviewed: 11/25/2021 [employer] Patient Education 2023 [employer]. Follow Up Care 06/08/2024 12:28:01 With:AVERY SORTO, Christ Ontiveros, URL Address: [facility] [address] , [place] [address]- When: Unknown [facility] 12-10-2024 Note Patient Education Urology Benign Prostatic [...] Follow these instructions at home: ??? Take cell-xdc-ztudfcw and prescription medicines only as told by [...] do not get (more content not included)... [facility] 10-29-2024 Hospital Discharge instructions Patient Education [...] urethra. Follow these instructions at home: Take lukg-lmb-wcdrmdt and prescription medicines only as told by [...] provider. Document Revised: 11/25/2021 Document Reviewed: 11/25/2021 [employer] Patient Education 2023 [employer]. Follow Up Care 09/26/2024 15:46:44 With:Keep previously scheduled follow-up appointment. Address: When: Unknown [facility] 10-29-2024 Note Patient Education Urology Benign Prostatic [...] Follow these instructions at home: ??? Take hgqc-rrl-hezkxnn and prescription medicines only as told by [...] do not get (more content not included)... [facility] 06-08-2024 Hospital Discharge instructions Patient Education [...] urethra. Follow these instructions at home: Take baam-ugv-obskesr and prescription medicines only as told by [...] provider. Document Revised: 11/25/2021 Document Reviewed: 11/25/2021 [employer] Patient Education 2023 [employer]. Follow Up Care 12/06/2023 13:07:22 With:AVERY SORTO, Christ Ontiveros, URL Address: [address] [place] [id number]- When: Unknown [facility] 06-08-2024 Note Patient Education Urology Benign Prostatic [...] Follow these instructions at home: ??? Take priv-tvn-skhnaxr and prescription medicines only as told by [...] do not get (more content not included)... [facility] 12-06-2023 Hospital Discharge instructions Patient Education [...] urethra. Follow these instructions at home: Take mlux-nag-nvfjwsv and prescription medicines only as told by [...] provider. Document Revised: 11/25/2021 Document Reviewed: 11/25/2021 [employer] Patient Education 2022 [employer]. Follow Up Care 07/01/2023 12:50:55 With:MIMI NGUYEN PA-C, URL Address: [address] [place] [address] [phone] When: Unknown [facility] 07-01-2023 Hospital Discharge instructions Patient Education 07/01/2023 [...] urethra. Follow these instructions at home: Take qzjn-ewk-odzgqld and prescription medicines only as told by [...] provider. Document Revised: 11/25/2021 Document Reviewed: 11/25/2021 [employer] Patient Education 2022 [employer]. Follow Up Care 02/28/2023 12:44:24 With:AVERY SORTO, Christ Ontiveros, URL Address: [facility] [address] , [place] [phone] When: Unknown Comments:4 mos (new med) [facility] 03-01-2022 Hospital Discharge instructions Patient Education 03/01/2022 [...] urethra. Follow these instructions at home: Take hnin-fge-ggkskdo and prescription medicines only as told by [...] 05/09/2006 Document Revised: 04/03/2019 Document Reviewed: 06/13/2017 [employer] Patient Education [employer]. Follow Up Care 12/22/2020 12:21:58 With:Christ OSULLIVAN MD, URL Address: [facility] [address], [place] [address] [phone] When:03/01/2023 Comments:PSA [facility] Evaluation + Plan note Future Appointments Appointment Date:02/28/2023 11:15:00 AM Scheduled Provider:Christ OSULLIVAN MD [facility] Appointment Type:URO Office Visit Diagnostic Tests PendingPSA Total 03/01/22 [facility] Evaluation + Plan note Future Appointments Appointment Date:11/11/2023 09:45:00 AM Scheduled Provider:Christ OSULLIVAN MD [facility] Appoint[facility] Type:URO Office Visit [facility] Evaluation + Plan note Future Appointments Appointment Date:06/08/2024 10:45:00 AM Scheduled Provider:Christ OSULLIVAN MD Location[facility] Appointment Type:URO Office Visit Diagnostic Tests PendingPSA Total 12/06/23 [facility] Future Appointments Appointment Date:12/10/2024 01:15:00 PM Scheduled Provider:Christ OSULLIVAN MD Location:[facility] Appointment Type:URO Office Visit [facility] Evaluation + Plan note Future Appointments Appointment Date:06/14/2025 10:45:00 AM Scheduled Provider:Christ OSULLIVAN MD Location:[facility] Appointment Type:URO Office Visit Future Scheduled TestsPSA Free & Total 05/23/25 [facility] [employer] Evaluation note Diagnosis Melanocytic nevus of trunk- Primary Benign neoplasm of skin of trunk, except scrotum Seborrheic keratosis Skin tag Unspecified hypertrophic and atrophic condition of skin [facility] Narrative No data available for this section [facility] Discharge instructions No data available for this section [facility] [email or web address] [facility] note No data available for this section [facility] Summary Purpose Family History No Family History Records Found No data available for this section No Family History Records Found No data available for this section No data available for this section No data available for this section No data available for this section No data available for this section No Family History Records FoundNo Family History Records Found Advance Directives No Advanced Directives Records FoundNo Advanced Directives Records FoundNo Advanced Directives Records FoundNo Advanced Directives Records Found Additional Source Comments (unrecognized sect ion and content) No Status Records FoundNo Status Records FoundNo Status Records FoundNo Status Records Found INFORMATION SOURCE (unrecogn ized section and content) DATE CREATED AUTHOR 12/24/2021 [facility] DATE CREATED AUTHOR AUTHOR'S ORGANIZ ATION 11/10/2023 [facility] DATE CREATED AUTHOR AUTHOR'S ORGANIZ ATION 01/17/2025 Esdras Lao [facility] DATE CREATED AUTHOR AUTHOR'S ORGANIZ ATION 01/22/2025 [facility] Patient Care team informatio n (unrecognized section and content) Personnel Name: Anu Che MD Address: Address: [address] [place] [address] Personnel Name: Anu Che MD Address: Address: [address] [place] [address] Personnel Name: Anu Che MD Address: Address: [address] [place] [address] Personnel Name: Anu Che MD Address: Address: [address] [place] [address] Personnel Name: Anu Che MD Address: [address] [place] [address] Telecom: Personnel Name: Anu Che MD Address: [address] [place] [address] Telecom: Personnel Name: Anu Che MD Address: [address] [place] [address] Telecom: Reason for Visit (unrecogniz ed section and content) Reason Comments Skin Check FOR RECORDS PERTAINING TO PATIENTS WHO ARE [...] BE BASED ON THE PRIMARY CLINICAL RECORDS. [employer] provides no warranty or guarantee of the accuracy or completeness of information in this document.
== END 2025-01-24 12:51 | disposition home or self-care (01) ==
LOC: PST 12:50
PROVIDERS: PCP Family Medicine; Visit Provider Surgery
DX: Z01.818 Encounter for other preprocedural examination (principal); R19.5 Other fecal abnormalities

== ENCOUNTER 2025-02-06 06:53 | Day surgery (SDC) | payer MEDICARE, OTHER, SELFPAY ==
--- NOTE | 2025-02-06 | OP_ITS ---
OPERATION DATE: 02/06/2025 PREOPERATIVE DIAGNOSIS: Positive fecal occult blood test. POSTOPERATIVE DIAGNOSIS: A 3 mm ascending colon polyp. PROCEDURE: Colonoscopy to cecum with cold forceps polypectomy x1. SURGEON: Zeferino Rosales M.D. ANESTHESIA: Monitored anesthesia care. ESTIMATED BLOOD LOSS: Less than 1 mL. INDICATIONS AND CONSENT: Patient is a 70-year-old male who presents for evaluation of positive fecal occult blood test. Indications, risks, benefits, alternatives of proceeding with colonoscopy were explained extensively to the patient, including the risks of bleeding, colon perforation or anesthetic complications. All of his questions were answered. Informed consent was obtained. PROCEDURE: Patient brought to the operating room, placed in the left lateral decubitus position. Monitored anesthesia care was provided. Rectal exam was performed which showed no masses or blood. The scope was inserted into the anal canal. Under direct visualization was advanced. With the aid of abdominal compression, it was advanced to the cecum where cecal markings were clearly identified. There was noted to be a good prep. Upon withdrawal of the scope, mucosal surfaces were carefully examined. Within the ascending colon, there was noted to be a 3 mm sessile polyp that was removed with cold forceps with good hemostasis. There were no other mass lesions or polyps. No inflammatory changes or ulcerations. No significant diverticulosis. The scope was retroflexed in the anal canal. There was no significant hemorrhoidal disease. The scope was then withdrawn. Patient tolerated procedure well, was sent to recovery room in good condition. Follow up surveillance colonoscopy likely in five years, if patient remains in good health, but will depend on the pathology results. CC: Edy Che M.D. JANNY
--- OUTSIDE RECORDS SUMMARY | 2025-02-06 06:56 | XMS_ITS | CCD ---
Author Organization [facility] Care Team Providers Care Manager Of Health Name Role Phone DR CHRIST OSULLIVAN Attending Unavailable CHINEDU, DR BRENNAN Primary Care Unavailable AVERY, DR BARTON Admitting Unavailable AVERY, DR BARTON Consulting Unavailable CHINEDU, DR BRENNAN Admitting Unavailable CHINEDU, DR BRENNAN Primary Care Unavailable CHINEDU, DR BRENNAN Consulting Unavailable CHINEDU, DR BRENNAN Attending Unavailable Anu Che Primary Care Physician [phone] Julienne Lott Attending Unavailable ANU CHE Primary Care Unavailable Christ OSULLIVAN Attending Unavailable Anu Che Referring Unavailable Zeferino TEJEDA Attending Unavailable Christ OSULLIVAN Attending Unavailable MIMI NGUYEN Attending Unavailable Christ OSULLIVAN Attending Unavailable Unavailable Primary Care Provider UnavailGENNARO Tavares Attending Unavailable Allergies Allergy Classification Reported Allergen(s) Allergy Type Date of Onset Reaction(s) Facility (2 sources) Magnesium; Translations: [Hismanal] Drug Allergy 6 [facility] (3 sources) Astemizole; Translations: [astemizole] Drug Allergy Tachycardia (finding) [facility] (1 source) No Known Medication Allergies; Translations: [No Known Medication Allergies] Propensity to adverse reactions (disorder) [facility] Repository (2 sources) Astemizole Propensity to [...] Status: Ordered take 1 capsule by mo [facility] in the morning esomeprazole (NexIUM) [address] capsule Take 40 mg by mouth in the morning. Active finasteride 5 mg oral tablet (9 sources) 5-alpha Reductase Inhibitor Start: 12-09-2024 End: 12-05-2025 take 1 tablet by mouth once daily finasteride 5 mg Tab 5 mg = 1 tab(s), Oral, Daily, X 90 day(s), # 90 tab(s), Refills(s) 3, Pharmacy: [facility]/pharmacy #[id number], 180, cm, 12/10/24 14:50:00 EDT, Height/Length Dosing, 89.4, kg, 12/10/24 14:50:00 EDT, Weight Dosing Start Date: 12/10/24 Stop Date: 12/05/25 Status: Ordered Quantity: 90.0 Unit: tab(s) Repeat number: 4 Start: 02-28-2024 take 1 tablet by mary anne once daily finasteride 5 mg Tab 5 mg = 1 tab(s), Oral, Daily, # 90 tab(s), Refills(s) 3, Pharmacy: [facility]/pharmacy #[id number], 180, cm, 12/06/23 12:36:00 EDT, Height/Length Dosing, 82, kg, 12/06/23 12:36:00 EDT, Weight Dosing Start Date: 02/28/24 Status: Ordered Quantity: 90.0 Unit: tab(s) Repeat number: 4 Start: 02-16-2023 take 1 tablet by mary anne once daily finasteride 5 mg Tab 5 mg = 1 tab(s), Oral, Daily, # 90 tab(s), Refills(s) 3, Pharmacy: [facility]/pharmacy #[id number], 180, cm, 03/01/22 11:27:00 EDT, Height/Length Dosing, 99, kg, 03/01/22 11:27:00 EDT, Weight Dosing Start Date: 02/16/23 Status: Ordered Start: 01-28-2022 take 1 tablet by [facility] once daily finasteride 5 mg Tab 5 mg = 1 tab(s), Oral, Daily, # 90 tab(s), Refills(s) 3, Pharmacy: [facility]/pharmacy #[id number], 180, cm, 12/22/20 11:38:00 EDT, Height/Length [...] # 30 tab(s), Refills(s) 11, [place], Pharmacy: [facility]/pharmacy #[id number], 180, cm, 06/08/24 11:16:00 EST, Height/Length Dosing, 82, kg, 06/08/24 11:16:00 EST, Weight Dosing Start Date: 06/08/24 Status: Ordered Start: 10-23-2023 take 1 tablet by mary anne once daily Myrbetriq 50 mg oral tablet, extended release 50 mg = 1 tab(s), Oral, Daily, # 30 tab(s), Refills(s) 11, Pharmacy: [facility] #[id number], 180, cm, 07/01/23 11:36:00 EST, Height/Length Dosing, 82, kg, 07/01/23 11:36:00 EST, Weight Dosing Start Date: 10/23/23 Status: Ordered 24 hr oxybutynin chloride 10 mg extended release oral tablet (1 source) Cholinergic Muscarinic Antagonist Start: 01-28-2022 take 1 tablet by mouth once daily oxybutynin 10 mg ER Tab 10 mg = 1 tab(s), Oral, Daily, # 90 tab(s), Refills(s) 3, Pharmacy: [facility]/pharmacy #[id number], 180, cm, 12/22/20 11:38:00 EDT, Height/Length [...] SORTO, Christ Ontiveros Where: [facility] [address] [address]- Medications What How Much When Instructions Unchanged [...] signed up for this yet, please contact [employer] at [phone] to get signed up today. Language Information Language assistance services are available as needed. Normal [facility] Ambulatory Visit Summaryon 0 12-10-2024 Ambulatory [...] Christ OSULLIVAN MD Where: [facility] [address] [place] [address]- You Need to Schedule the Following Appointments Follow Up with Christ OSULLIVAN MD, URL When: Where: [facility] [address], [place] [address]- You Need to Complete the Following PSA Free & Total, Blood, Routine collect, 05/23/25, Order for future visit, Lab Collect, Elevated PSA BPH (benign prostatic hyperplasia), Required & Missing, Print Label By Order Location Medications What How Much When Instructions Changed finasteride (finasteride 5 mg Tab) 1 Tablets By Mouth Every day Duration: 90 Days Pickup at [facility]/pharmacy #[id number] Unchanged cetirizine (Zyrtec Dissolve 10 mg oral [...] physician if questions or concerns Pharmacy Information [facility]/pharmacy #[id number]: [address] [place], [place] [id number] [phone] Allergies Hismanal (Heart rate fast) Problems Ongoing - Any problem that you are currently receiving treatment for. 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 (more content not included)... Normal [facility] Urology Office/Clinic Noteon 12-10-2024 Urology Office/Clinic [...] qd. Cont wo changes. Refill sent to [facility]. 4. Elevated PSA (R97.20: Elevated prostate specific antigen [PSA]) PSA 12/19/20 - 1.36 (2.72) 12/23/21 - 1.87 (3.74) 02/26/23 - 1.46 (2.92) 06/06/24 - 1.34 (2.68) Reports he has a strong family history of prostate cancer. S/p TRUS/bx 07/06/16, 03/05/14, and 08/28/13. -PSA due May 2025 Follow-up With When Contact Information AEVRY SORTO, Christ Ontiveros, URL [facility] [address], [place] [address]- Additional Instructions: 6 mos with PSA F&T Patient Education Benign Prostatic Hyperplasia I, Suni Dias, personally scribed for Dr. Osullivan on 12/10/2024 15:50:04. . 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 Please share your experience with us by completing your survey. We appreciate your feedback and thank you for choosing us for your care. Christiano Dewitt [facility] Urology Office/Clinic Noteon 10-29-2024 Urology Office/Clinic [...] E&M of Est. Patient Moderate 30-39 Min 29774 2. Incomplete emptying of bladder (R33.9: Retention of urine, unspecified) Unclear if this is chronic or recent d/t the Trospium. Repeat PVR next ov off anticholinergic. See #1. Ordered: 09981 Measure Post Void residual urine and/or bladder capacity by US- non-imaging E&M of Est. Patient Moderate 30-39 Min 96237 3. BPH (benign prostatic hyperplasia) (N40.0: Benign prostatic hyperplasia without lower urinary tract symptoms) S/p TURP 2015 Taking Finasteride 5mg qd. Split stream at the end. Has made some dietary modifications to avoid nocturia. -Cont Finasteride 5mg qd Ordered: E&M of Est. Patient Moderate 30-39 Min 01932 4. Elevated PSA (R97.20: Elevated prostate specific antigen [PSA]) PSA 12/19/20 - 1.36 (2.72) 12/23/21 - 1.87 (3.74) 02/26/23 - 1.46 (2.92) 06/06/24 - 1.34 (2.68) Reports he has a strong family history of prostate cancer. S/p TRUS/bx 07/06/16, 03/05/14, and 08/28/13. [1] -PSA due May 2025 Ordered: E&M of Est. Patient Moderate 30-39 Min 13611 Orders: mirabegron, 50 mg = 1 tab(s), Oral, Daily, # 30 tab(s), Refills(s) , [place], Pharmacy: [facility]/pharmacy #[id number], 180, cm, 06/08/24 11:16:00 EST, Height/Length Dosing, 82, kg, 06/08/24 11:16:00 EST, Weight Dosing Follow-up With When Contact Information Keep previously scheduled follow-up appointment. 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 Normal [facility] Comment on above: Result Comment: Elec tronically Signed By: Christ OSULLIVAN MD\.br\Date and Time Signed: 06/08/24 12:26 EST\.br\Electronically Co-Signed By: Ирина Hines\.br\Date and Time Co-Signed: 06/08/24 12:25 EST INSULINon 12-24-2021 Insulin 7.7 uIU/mL Normal 2.6-24.9 [facility] Comment on above: Performed By: #### I NSULIN #### [facility] [address] [place] [address] Dr. Max Pyle CBC AUTO DIFFon 12-23-2021 BASO # 0.1 103/ul Normal 0.0-0.1 [facility] Comment on above: Performed By: #### C BC #### [facility] [address] [place] [address] Dr. Max Pyle Basophils/100 WBC (Bld) 0.7 % Normal 0.2-2.0 [facility] Comment on above: Performed By: #### C BC #### [facility] [address] [place] [address] Dr. Max Pyle EO # 0.2 103/ul Normal 0.0-0.7 [facility] Comment on above: Performed By: #### C BC #### [facility] [address] [place] [address] Dr. Max Pyle Eosinophils/100 WBC (Bld) 2.5 % Normal 0.9-7.0 [facility] Comment on above: Performed By: #### C BC #### [facility] [address] [place] [address] Dr. Max Pyle Erythrocyte distribution width (RBC) [Ratio] 12.9 % Normal 11.0-15.0 [facility] Comment on above: Performed By: #### C BC #### [facility] [address] [place] [address] Dr. Max Pyle Hematocrit (Bld) [Volume fraction] 42.3 % Normal 42.0-54.0 [facility] Comment on above: Performed By: #### C BC #### [facility] [address] [place] [address] Dr. Max Pyle Hemoglobin (Bld) [Mass/Vol] 14.3 g/dL Normal 14.0-18.0 [facility] Comment on above: Performed By: #### C BC #### [facility] [address] [place] [address] Dr. Max Pyle IG # 0.02 10e3/ul Normal 0.00-0.03 [facility] Comment on above: Performed By: #### C BC #### [facility] [address] [place] [address] Dr. Max Pyle IG % 0.3 % Normal 0.0-0.5 [facility] Comment on above: Performed By: #### C BC #### [facility] [address] [place] [address] Dr. Max Pyle LYMPH # 2.0 103/ul Normal 1.2-3.8 [facility] Comment on above: Performed By: #### C BC #### [facility] [address] [place] [address] Dr. Max Pyle Lymphocytes/100 WBC (Bld) 25.9 % Normal 20.5-60.0 [facility] Comment on above: Performed By: #### C BC #### [facility] [address] [place] [address] Dr. Max Pyle MANUAL DIFF REQ NO Normal [facility] Comment on above: Performed By: #### C BC #### [facility] [address] [place] [address] Dr. Max Pyle MCH (RBC) [Entitic mass] 29.7 pg Normal 25.9-34.0 [facility] Comment on above: Performed By: #### C BC #### [facility] [address] [place] [address] Dr. Max Pyle MCHC (RBC) [Mass/Vol] 33.8 g/dL Normal 29.9-35.2 [facility] Comment on above: Performed By: #### C BC #### [facility] [address] [place] [address] Dr. Max Pyle MCV (RBC) [Entitic vol] 87.9 fL Normal 80.0-94.0 [facility] Comment on above: Performed By: #### C BC #### [facility] [address] [place] [address] Dr. Max Pyle MONO # 0.4 103/ul Normal 0.3-0.8 [facility] Comment on above: Performed By: #### C BC #### [facility] [address] [place] [address] Dr. Max Pyle Monocytes/100 WBC (Bld) 5.3 % Normal 1.7-12.0 [facility] Comment on above: Performed By: #### C BC #### [facility] [address] [place] [address] Dr. Max Pyle NEUT # 5.0 103/ul Normal 1.4-6.5 [facility] Comment on above: Performed By: #### C BC #### [facility] [address] [place] [address] Dr. Max Pyle Neutrophils/100 WBC (Bld) 65.3 % Normal 43.0-75.0 [facility] Comment on above: Performed By: #### C BC #### [facility] [address] [place] [address] Dr. Max Pyle Platelet mean volume (Bld) [Entitic vol] 9.9 fL Normal 9.5-13.5 [facility] Comment on above: Performed By: #### C BC #### [facility] [address] [place] [address] Dr. Max Pyle PLT 225 103/ul Normal 150-450 [facility] Comment on above: Performed By: #### C BC #### [facility] [address] [place] [address] Dr. Max Pyle RBC 4.81 106/ul Normal 4.70-6.10 [facility] Comment on above: Performed By: #### C BC #### [facility] [address] [place] [address] Dr. Max Pyle WBC 7.7 103/ul Normal 4.0-11.0 [facility] Comment on above: Performed By: #### C BC #### [facility] [address] [place] [address] Dr. Max Pyle FREE THYROXINE INDEX T7on FTI 2.79 Normal 1.30-4.50 [facility] Comment on above: Performed By: #### C MP, LIPID, T7, TSH, URIC #### [facility] [address] [place] [address] Dr. Max Pyle T3U 34.0 % Normal 33.0-40.0 [facility] Comment on above: Performed By: #### C MP, LIPID, T7, TSH, URIC #### [facility] [address] [place] [address] Dr. Max Pyle T4 [Mass/Vol] 8.20 ug/dL Normal 4.50-12.10 [facility] Comment on above: Performed By: #### C MP, LIPID, T7, TSH, URIC #### [facility] [address] [place] [address] Dr. Max Pyle GLYCOHEMOGLOBIN A1Con 2021 ADA RECOMMENDATION SEE BELOW Normal [facility] Comment on above: Result Comment: ADA RECOMMENDED LIMIT 4.0 - 6.0 ADA THERAPEUTIC TARGET < 7.0 ACTION SUGGESTED > 7.0 Performed By: #### A 1C #### [facility] [address] [address] [address] Max Pyle Glucose [Mass/Vol] 134 mg/dL Normal [facility] Comment on above: Performed By: #### A 1C #### [facility] [address] [place] [address] Dr. Max Pyle HbA1c (Bld) [Mass fraction] 6.3 % Critically high 4.5-6.2 [facility] Comment on above: Performed By: #### A 1C #### [facility] [address] [place] [address] Dr. Max Pyle LIPID PROFILEon 12-23-2021 CHOL-HDL RATIO NORM SEE BELOW Normal [facility] Comment on above: Result Comment: 3.3 - 4.4 LOW RISK 4.4 - 7.1 AVERAGE RISK 7.1 - 11.0 MODERATE RISK >11.0 HIGH RISK Performed By: #### C MP, LIPID, T7, TSH, URIC #### [facility] [address] [place] [address] Dr. Max Pyle Cholesterol [Mass/Vol] 193 mg/dL Normal <=200 [facility] Comment on above: Performed By: #### C MP, LIPID, T7, TSH, URIC #### [facility] [address] [address] [address] Max Pyle Cholesterol in HDL [Mass/Vol] 56 mg/dL Normal 40-60 [facility] Comment on above: Performed By: #### C MP, LIPID, T7, TSH, URIC #### [facility] [address] [address] [address] Max Pyle Cholesterol in LDL [Mass/Vol] 103.6 mg/dL Normal [facility] Comment on above: Performed By: #### C MP, LIPID, T7, TSH, URIC #### [facility] [address] [place] [address] Dr. Max Pyle Cholesterol.total/Cho lesterol in HDL [Mass ratio] 3.4 {ratio} Normal [facility] Comment on above: Performed By: #### C MP, LIPID, T7, TSH, URIC #### [facility] [address] [address] [address] Max Pyle HDL NORMAL > or = 60 mg/dl - LO W CARDIOVASCULAR RISK <40 mg/dl - HIGH CARDIOVASCULAR RISK Normal [facility] Comment on above: Performed By: #### C MP, LIPID, T7, TSH, URIC #### [facility] [address] [address] [address] Max Pyle LDL CALC NORMAL SEE BELOW Normal [facility] Comment on above: Result Comment: <100 mg/dl OPTIMAL 100 - 129 mg/dl NEAR OR ABOVE OPTIMAL 130 - 159 mg/dl BORDERLINE HIGH 160 - 189 mg/dl HIGH >190 mg/dl VERY HIGH Performed By: #### C MP, LIPID, T7, TSH, URIC #### [facility] [address] [address] [address] Max Pyle Triglyceride [Mass/Vol] 167 mg/dL Critically high <=150 [facility] Comment on above: Performed By: #### C MP, LIPID, T7, TSH, URIC #### [facility] [address] [address] [address] Max Pyle VLDL CALC 33.4 mg/dL Normal [facility] Comment on above: Performed By: #### C MP, LIPID, T7, TSH, URIC #### [facility] [address] [address] [address] Max Pyle PROF 14(COMP METB)on 022 Albumin [Mass/Vol] 4.2 g/dL Normal 3.4-5.0 [facility] Comment on above: Performed By: #### C MP, LIPID, T7, TSH, URIC #### [facility] [address] [address] [address] Max Pyle Albumin/Globulin [Mass ratio] 1.4 {ratio} Normal [facility] Comment on above: Performed By: #### C MP, LIPID, T7, TSH, URIC #### [facility] [address] [place] [address] Dr. Max Pyle ALP [Catalytic activity/Vol] 78 U/L Normal 46-116 [facility] Comment on above: Performed By: #### C MP, LIPID, T7, TSH, URIC #### [facility] [address] [place] [address] Dr. Max Pyle ALT [Catalytic activity/Vol] 29 U/L Normal 16-63 [facility] Comment on above: Performed By: #### C MP, LIPID, T7, TSH, URIC #### [facility] [address] [place] [address] Dr. Max Pyle Anion gap [Moles/Vol] 13.8 mmol/L Normal [facility] Comment on above: Performed By: #### C MP, LIPID, T7, TSH, URIC #### [facility] [address] [place] [address] Dr. Max Pyle AST [Catalytic activity/Vol] 15 U/L Normal 15-37 [facility] Comment on above: Performed By: #### C MP, LIPID, T7, TSH, URIC #### [facility] [address] [place] [address] Dr. Max Pyle Bilirubin [Mass/Vol] 0.7 mg/dL Normal 0.2-1.0 [facility] Comment on above: Performed By: #### C MP, LIPID, T7, TSH, URIC #### [facility] [address] [place] [address] Dr. Max Pyle Calcium [Mass/Vol] 9.0 mg/dL Normal 8.5-10.1 [facility] Comment on above: Performed By: #### C MP, LIPID, T7, TSH, URIC #### [facility] [address] [place] [address] Dr. Max Pyle Chloride [Moles/Vol] 106 mmol/L Normal 98-107 [facility] Comment on above: Performed By: #### C MP, LIPID, T7, TSH, URIC #### [facility] [address] [place] [address] Dr. Max Pyle CO2 [Moles/Vol] 27.9 mmol/L Normal 21.0-32.0 [facility] Comment on above: Performed By: #### C MP, LIPID, T7, TSH, URIC #### [facility] [address] [address] [address] Max Pyle Creatinine [Mass/Vol] 1.02 mg/dL Normal 0.70-1.30 [facility] Comment on above: Performed By: #### C MP, LIPID, T7, TSH, URIC #### [facility] [address] [address] [address] Max Pyle EGFR-AF RUSSIAN >60 Normal >=60 [facility] Comment on above: Performed By: #### C MP, LIPID, T7, TSH, URIC #### [facility] [address] [place] [address] Dr. Max Pyle EGFR-NON AF RUSSIAN >60 Normal >=60 [facility] Comment on above: Performed By: #### C MP, LIPID, T7, TSH, URIC #### [facility] [address] [place] [address] Dr. Max Pyle Globulin (S) [Mass/Vol] 3.1 g/dL Normal [facility] Comment on above: Performed By: #### C MP, LIPID, T7, TSH, URIC #### [facility] [address] [place] [address] Dr. Max Pyle Glucose [Mass/Vol] 106 mg/dL Normal 74-[address] [facility] Comment on above: Performed By: #### C MP, LIPID, T7, TSH, URIC #### [facility] [address] [address] [address] Max Pyle Potassium [Moles/Vol] 3.7 mmol/L Normal 3.5-5.1 [facility] Comment on above: Performed By: #### C MP, LIPID, T7, TSH, URIC #### [facility] [address] [place] [address] Dr. Max Pyle Protein [Mass/Vol] 7.3 g/dL Normal 6.4-8.[address] [facility] Comment on above: Performed By: #### C MP, LIPID, T7, TSH, URIC #### [facility] [address] [address] [address] Max Pyle Sodium [Moles/Vol] 144 mmol/L Normal 136-[address] [facility] Comment on above: Performed By: #### C MP, LIPID, T7, TSH, URIC #### [facility] [address] [address] [address] Max Pyle Urea nitrogen [Mass/Vol] 13.0 mg/dL Normal 7.0-18.0 [facility] Comment on above: Performed By: #### C MP, LIPID, T7, TSH, URIC #### [facility] [address] [place] [address] Dr. Max Pyle Urea nitrogen/Creatinine [Mass ratio] 12.7 mg/mg Normal [facility] Comment on above: Performed By: #### C MP, LIPID, T7, TSH, URIC #### [facility] [address] [place] [address] Dr. Max Pyle TSHon 12-23-2021 TSH 1.072 uIU/mL Normal 0.358-3.740 [facility] Comment on above: Performed By: #### C MP, LIPID, T7, TSH, URIC #### [facility] [address] [place] [address] Dr. Max Pyle URIC ACID SERUMon 12-23-2021 Urate [Mass/Vol] 6.4 mg/dL Normal 3.5-7.2 [facility] Comment on above: Performed By: #### C MP, LIPID, T7, TSH, URIC #### [facility] [address] [place] [address] Dr. Max Pyle Vital Signs Date Time Vital Sign Value Performing Clinician Faci mary 06-08-2024 11:13-0500 Diastolic blood pressure 63 mm[Hg] Christ OSULLIVAN [facility] 06-08-2024 11:13-0500 Heart rate 72 /min Christ OSULLIVAN [facility] 06-08-2024 11:13-0500 Respiratory rate 16 /min Christ OSULLIVAN [facility] 06-08-2024 11:13-0500 Systolic blood pressure 109 mm[Hg] Christ OSULLIVAN [facility] 12-06-2023 12:32-0400 Blood Pressure Location MIMI WENDY [facility] 12-06-2023 12:32-0400 Diastolic blood pressure 74 mm[Hg] MIMI WENDY [facility] 12-06-2023 12:32-0400 Heart rate 80 /min MIMI WENDY [facility] 12-06-2023 12:32-0400 Respiratory rate 16 /min MIMI WENDY [facility] 12-06-2023 12:32-0400 Systolic blood pressure 132 mm[Hg] MIMI WENDY [facility] 07-01-2023 11:34-0500 Blood Pressure Location Christ OSULLIVAN [facility] 07-01-2023 11:34-0500 Diastolic blood pressure 72 mm[Hg] Christ OSULLIVAN [facility] 07-01-2023 11:34-0500 Heart rate 80 /min Christ OSULLIVAN [facility] 07-01-2023 11:34-0500 Respiratory rate 16 /min Christ OSULLIVAN [facility] 07-01-2023 11:34-0500 Systolic blood pressure 135 mm[Hg] Christ OSULLIVAN [facility] 03-01-2022 11:25-0400 Blood Pressure Location Christ OSULLIVAN [facility] 03-01-2022 11:25-0400 Diastolic blood pressure 81 mm[Hg] Christ OSULLIVAN [facility] 03-01-2022 11:25-0400 Heart rate 78 /min Christ OSULLIVAN [facility] 03-01-2022 11:25-0400 Respiratory rate 16 /min Christ OSULLIVAN [facility] 03-01-2022 11:25-0400 Systolic blood pressure 138 mm[Hg] Christ OSULLIVAN [facility] Encounters Encounter Date Encounter Type Care Provider Facility Start: 01-22-2025 End: 01-22-2025 Bamboo flowsjoe VERDE [facility] Start: 01-22-2025 End: 01-22-2025 Bamboo flowsheet Gennaro Meza PA Work Phone[facility] Start: 01-22-2025 End: 01-22-2025 Office outpatient new 30 minutes Gennaro VERDE [facility] Comment on above: Melanocytic nevus of trunk (Primary Dx); Seborrheic keratosis; Skin tag Start: 01-22-2025 End: 01-22-2025 ambulatory GENNARO MEZA Not Available Start: 01-15-2025 End: 01-15-2025 ambulatory Anu Hoy Facility:[facility] Start: 01-15-2025 End: 01-15-2025 Patient encounter procedure Zeferino Rama NIKHIL [facility] Start: 12-18-2024 ambulatory [facility] Start: 12-10-2024 End: 12-10-2024 ambulatory [facility] Start: 12-10-2024 End: 12-10-2024 Patient encounter procedure Christ OSULLIVAN [facility] Start: 10-29-2024 End: 10-29-2024 ambulatory [facility]GUYEN [facility] Start: 10-29-2024 End: 10-29-2024 Patient encounter procedure [facility] Start: 06-08-2024 End: 06-08-2024 ambulatory [facility] Start: 06-08-2024 End: 06-08-2024 Patient encounter procedure [facility]ULLIVAN [facility] Start: 12-06-2023 End: 12-06-2023 Patient encounter procedure [facility]EN [facility] Start: 11-08-2023 End: 11-08-2023 Emergency department patient visit Julienne [facility] Start: 07-01-2023 End: 07-01-2023 Patient encounter procedure Christ OSULLIVAN [facility] Start: 03-01-2022 End: 03-01-2022 Patient encounter procedure Christ OSULLIVAN [facility] Start: 12-23-2021 End: 12-24-[address] ANU CHE Facility:[facility] Procedures Date Procedure Procedure Detail Performing Clinician Start: 12-23-[address] CARROLL OSULLIVAN Comment on above: Performed By: #### P SAD #### [facility] [address] [place] [address] Dr. Max Pyle Start: 07-06-2016 Transrectal biopsy o f prostate using ultrasound guidance Christ OSULLIVAN Start: 07-06-2016 Ultrasonography guid ed transrectal cryoablation of prostate Christ OSULLIVAN Start: 07-31-2015 Cystoscopy Christ GUERRA Start: [...] Cystoscopy Christ GUERRA Start: 03-28-2013 Urodynamic studies Cnonier icjerald OSULLIVAN Start: 05-23-2009 Colonoscopy Zeferino JENSEN Tonsillectomy Christ OSULLIVAN Plan of Treatment Date Care Activity Detail Author Start: 01-22-2026 End: 01-22-2026 Patient encounter procedure 01/22/2026 12:30 PM EDT [facility] Visit [facility] [address] [facility] [place] [address] Gennaro Meza PA [address] [place] [address] [facility] Start: 06-14-2025 ambulatory Ambulatory Facility:[facility] Start: 01-22-2025 End: 01-22-2025 Patient encounter procedure 01/22/2025 10:50 AM EDT Office Visit [facility] [address] [facility] [place] [id number] Gennaro Meza PA [address] [place] [address] Arrived [facility] Comment on above: Arrived Immunizations Immunization Date Immunization Notes Care Provider [facility] 06-04-2020 influenza virus vaccine, unspecified formulation Christ OSULLIVAN [facility] 03-17-2017 influenza, unspecifi ed formulation Christ OSULLIVAN [facility] 03-25-2016 influenza, unspecifi ed formulation Christ OSULLIVAN [facility] 04-30-2014 influenza virus vaccine, unspecified formulation Christ OSULLIVAN [facility] 04-30-2014 zoster vaccine, live Christ OSULLIVAN [facility] Payers Date Payer Category Payer Unknown [id number] 2024 Unknown [id number] 2023 Unknown [id number] 2019 Medicare [id number] 2019 Private Health Insurance be1 [id number] 2019 Unknown [id number] 1961 Medicare [id number] 1959 Unknown [id number] 1953 Unknown [id number] 2.16.84 [id number] 1953 Unknown [id number] 2.16.84 [id number] 1953 Unknown [id number] 2.16.8 [id number] 1953 Unknown [id number] 2.16.8 [id number] 1953 Unknown [id number] 2.16.8 [id number] 1953 Unknown [id number] 2.16.8 [id number] 1953 Unknown [id number] 2.16.8 [id number] 1953 Unknown [id number] 2.16.8 [id number] 1953 Unknown [id number] 2.16.8 [id number] Social History Date Type Detail Facility Start: 03-01-2022 End: 01-22-2025 Tobacco smoking status Never smoked tobacco (finding) [facility] Start: 01-22-2025 Sex Assigned At Male [facility] Tobacco smoking status Never [facility] Sexual Orientation [facility] Start: 10-02-2019 Sex Male (finding) [facility] Tobacco smoking stat [facility] Tobacco smoking consumption unknown [facility] Start: 1955 Sex assigned at Not on file [facility] Start: 01-22-2025 Tobacco use and exposure Smokeless tobacco non-user [facility] Start: 01-22-2025 History of Social function [facility] Medical Equipment Procedure Code Equipment Code Equipment Origin al Text Equipment Identifier Dates USE 1 LANCET TO POKE FINGER TO MONITOR GLUCOSE ONCE DAILY DX [id number] DAYS Start: 10-04-2024 Functional Status Date Assessment Result Facility 06-08-2024 Functional Status N/A [facility] 12-06-2023 Functional Status N/A [facility] 07-01-2023 Functional Status N/A [facility] 03-01-2022 Functional Status N/A [facility] Clinical Notes 03-01-2022 to 01-22-2025 MEHREEN Miranda [...] Visit: 1 year documented in this encounter [facility] 01-15-2025 Note General Surgery Offi ce/Clinic Note [...] mcg= 1 tab(s (more content not included)... [facility] Comment on above: Result Comment: [...] urethra. Follow these instructions at home: Take lryp-dxa-lidjnvc and prescription medicines only as told by [...] provider. Document Revised: 11/25/2021 Document Reviewed: 11/25/2021 [employer] Patient Education 2023 EPV SOLAR. Follow Up Care 06/08/2024 12:28:01 With:AVERY SORTO, Christ Ontiveros, URL Address: [facility] [address] , [place] [address]- When: Unknown [facility] 12-10-2024 Note Patient Education Urology Benign Prostatic [...] Follow these instructions at home: ??? Take dcld-fyb-rxnexnl and prescription medicines only as told by [...] do not get (more content not included)... [facility] 10-29-2024 Hospital Discharge instructions Patient [...] urethra. Follow these instructions at home: Take bawd-xyo-rvrxsbj and prescription medicines only as told by [...] provider. Document Revised: 11/25/2021 Document Reviewed: 11/25/2021 [employer] Patient Education 2023 EPV SOLAR. Follow Up Care 09/26/2024 15:46:44 With:Keep previously scheduled follow-up appointment. Address: When: Unknown [facility] 10-29-2024 Note Patient Education Urology Benign Prostatic [...] Follow these instructions at home: ??? Take tamz-qto-rxlzqpy and prescription medicines only as told by [...] do not get (more content not included)... [facility] 06-08-2024 Hospital Discharge instructions Patient [...] urethra. Follow these instructions at home: Take tbmg-riy-cdqtobb and prescription medicines only as told by [...] provider. Document Revised: 11/25/2021 Document Reviewed: 11/25/2021 [employer] Patient Education 2023 EPV SOLAR. Follow Up Care 12/06/2023 13:07:22 With:AVERY SORTO, Christ Ontiveros, URL Address: [address] [place] [address]- When: Unknown [facility] 06-08-2024 Note Patient Education Urology Benign Prostatic [...] Follow these instructions at home: ??? Take wvme-fka-yfndwtg and prescription medicines only as told by [...] do not get (more content not included)... [facility] 12-06-2023 Hospital Discharge instructions Patient [...] urethra. Follow these instructions at home: Take cuyd-tnt-ghwgyum and prescription medicines only as told by [...] provider. Document Revised: 11/25/2021 Document Reviewed: 11/25/2021 [employer] Patient Education 2022 EPV SOLAR. Follow Up Care 07/01/2023 12:50:55 With:MIMI NGUYEN PA-C, URL Address: [address] [place] [address] [phone] When: Unknown [facility] 07-01-2023 Hospital Discharge instructions Patient Education [...] urethra. Follow these instructions at home: Take mais-wmk-urabnkz and prescription medicines only as told by [...] provider. Document Revised: 11/25/2021 Document Reviewed: 11/25/2021 [employer] Patient Education 2022 EPV SOLAR. Follow Up Care 02/28/2023 12:44:24 With:AVERY SORTO, Christ Ontiveros, URL Address: [facility] [address] , [place] [address]- [phone] When: Unknown Comments:4 mos (new med) [facility] 03-01-2022 Hospital Discharge instructions Patient Education 03/01/2022 [...] urethra. Follow these instructions at home: Take ytkh-mjk-lzrbnsk and prescription medicines only as told by [...] 05/09/2006 Document Revised: 04/03/2019 Document Reviewed: 06/13/2017 [employer] Patient Education [employer]. Follow Up Care 12/22/2020 12:21:58 With:Christ OSULLIVAN MD, URL Address: [facility] [address], [place] [address]- [phone] When:03/01/2023 Comments:PSA [facility] Evaluation + Plan note Future Appointments Appointment Date:02/28/2023 11:15:00 AM Scheduled Provider:Christ [facility]IVAN [facility] Type:URO Office Visit Diagnostic Tests PendingPSA Total 03/01/22 [facility] Evaluation + Plan note Future Appointments Appointment Date:11/11/2023 09:45:00 AM Scheduled Provider:Christ [facility]ULLIVAN MD [facility] App[facility] Type:URO Office Visit [facility] Evaluation + Plan note Future Appointments Appointment Date:06/08/2024 10:45:00 AM Scheduled Provider:Christ OSULLIVAN MD [facility] Appointment Type:URO Office Visit Diagnostic Tests PendingPSA Total 12/06/23 [facility] note Future Appointments Appointment Date:12/10/2024 01:15:00 PM Scheduled Provider:Christ OSULLIVAN MD Location:[facility] Appointment Type:URO Office Visit [facility] Evaluation + Plan note Future Appointments Appointment Date:06/14/2025 10:45:00 AM Scheduled Provider:Christ OSULLIVAN MD Location:[facility] Appointment Type:URO Office Visit Future Scheduled TestsPSA Free & Total 05/23/25 [facility] [employer] Evaluation note Diagnosis Melanocytic nevus of trunk- Primary Benign neoplasm of skin of trunk, except scrotum Seborrheic keratosis Skin tag Unspecified hypertrophic and atrophic condition of skin [facility] N[facility]ative No data available for this section [facility] Discharge instructions No data available for this section [facility] [employer] [place] note No data available for this section [facility] Summary Purpose Family History No Family History [...] section and content) DATE CREATED AUTHOR 12/24/2021 [facility] DATE CREATED AUTHOR AUTHOR'S ORGANIZ ATION 11/10/2023 [facility] DATE CREATED AUTHOR AUTHOR'S ORGANIZ ATION 01/17/2025 Esdras Lao [facility] DATE CREATED AUTHOR AUTHOR'S ORGANIZ ATION 01/22/2025 [facility] Patient Care team informatio n (unrecognized section and content) Personnel Name: Anu Che MD Address: Address: [address] [place] [address] Personnel Name: Anu Che MD Address: Address: [address] [place] [address] Personnel Name: Anu Che MD Address: Address: [address] [place] [address] Personnel Name: Anu Che MD Address: Address: [address] [place] [address] Personnel Name: Anu Che MD Address: [address] [place] [address] Telecom: Personnel Name: Anu Che MD Address: [address] [place] [address] Telecom: Personnel Name: Anu Che MD Address: [address] [place] [address] Telecom: Reason for Visit (unrecogniz ed section [...] BE BASED ON THE PRIMARY CLINICAL RECORDS. [employer] provides no warranty or guarantee of the accuracy or completeness of information in this document.
[2025-02-06 06:57] VITALS: BP 118/76; PULSE 73; TEMP 36.2; O2SAT 97; BMI 28.3
[2025-02-06 08:29] VITALS: BP 122/74; PULSE 65; TEMP 36.7; O2SAT 94
[2025-02-06 08:44] VITALS: BP 132/76; PULSE 67; O2SAT 94
[2025-02-06 08:59] VITALS: BP 126/88; PULSE 67; O2SAT 95
== END 2025-02-06 08:59 | disposition home or self-care (01) ==
PROVIDERS: PCP Family Medicine; Visit Provider Surgery
PROC: (CPT 45380; principal; 2025-02-06 07:55)
DX: K63.5 Polyp of colon (principal); R19.5 Other fecal abnormalities; Z80.0 Family history of malignant neoplasm of digestive organs; E11.40 Type 2 diabetes mellitus with diabetic neuropathy, unspecified; K44.9 Diaphragmatic hernia without obstruction or gangrene; K21.9 Gastro-esophageal reflux disease without esophagitis; N40.0 Benign prostatic hyperplasia without lower urinary tract symptoms; Z87.442 Personal history of urinary calculi; Z79.84 Long term (current) use of oral hypoglycemic drugs; Z87.01 Personal history of pneumonia (recurrent); E78.5 Hyperlipidemia, unspecified; I10 Essential (primary) hypertension; F41.9 Anxiety disorder, unspecified
CPT/HCPCS: 45380; 36415; 82948; J2704